=== PATIENT | female | born 1945 | race Caucasian/White ===

== ENCOUNTER → 2021-03-14 13:08 | Outpatient (BNVA) | payer MEDICARE, OTHER, SELFPAY | PROVIDERS: PCP Internal Medicine; Visit Provider Hospitalist | DX: R91.8 Other nonspecific abnormal finding of lung field (principal); J41.0 Simple chronic bronchitis; R19.09 Other intra-abdominal and pelvic swelling, mass and lump; R59.1 Generalized enlarged lymph nodes; F17.200 Nicotine dependence, unspecified, uncomplicated | CPT/HCPCS: 99202; 99212 ==

== ENCOUNTER 2021-03-25 10:58 | Outpatient (REF) | payer MEDICARE, OTHER, SELFPAY ==
--- NOTE | 2021-03-25 15:18 | PFT_ITS ---
Forced vital capacity is slightly decrease. FEV1 moderately decreased. [id number] and MVV are markedly decreased. Post bronchodilator therapy, there is no significant change. Total lung capacity is normal. Residual volume moderately increased. Diffusion capacity is moderately decreased. CONCLUSION: Obstructive pulmonary disorder, severe. No response to bronchodilator therapy is noted. There is evidence of hyperinflation and some degree of air trapping. Clinical correlation recommended. MD AAKASH Alfaro/MODL / [id number]
== END 2021-03-25 10:59 | disposition home or self-care (01) ==
LOC: HO.RESP 10:58
PROVIDERS: PCP Internal Medicine; Visit Provider Hospitalist
DX: J44.9 Chronic obstructive pulmonary disease, unspecified (principal); R91.8 Other nonspecific abnormal finding of lung field
CPT/HCPCS: 94060; 94727; 94729

== ENCOUNTER 2021-03-26 12:46 | Outpatient (REF) | payer MEDICARE, OTHER, SELFPAY ==
--- NOTE | ~2021-03-26 | US_ITS ---
EXAMINATION: ULTRASOUND-GUIDED NEEDLE PLACEMENT CLINICAL INFORMATION: Left inguinal lymph node increased uptake on PET CT scan COMPARISON: Outside PET/CT scan 03/15/2021 TECHNIQUE: Procedure and risks and benefits including bleeding and infection were discussed with the patient and informed consent was obtained. The left groin was prepped and draped in the usual sterile fashion. Skin and soft tissues were anesthetized with 1% lidocaine plain. Using ultrasound guidance and a 22-gauge needle, 3 separate 22-gauge FNA aspirations were obtained. FINDINGS: There is a 2.1 x 0.9 x 1.5 cm left inguinal lymph node. This appears diffusely hypoechoic with loss of normal echogenic fatty hilum. This demonstrates normal hilar flow. US/US guide needle placement IMPRESSION: Ultrasound-guided left inguinal lymph node fine-needle aspiration.
== END 2021-03-26 12:47 | disposition home or self-care (01) ==
LOC: HO.US 12:46
PROVIDERS: Radiology Diagnostic Radiology; PCP Internal Medicine; Visit Provider Hospitalist
DX: Z13.89 Encounter for screening for other disorder (principal)
CPT/HCPCS: 36415; 76942; 88172; 88173; 88184; 88185; 88300; 88305

== ENCOUNTER → 2021-04-17 09:44 | Outpatient (BNVA) | payer MEDICARE, OTHER, SELFPAY | PROVIDERS: PCP Internal Medicine; Visit Provider Hospitalist | DX: J41.0 Simple chronic bronchitis (principal); R19.09 Other intra-abdominal and pelvic swelling, mass and lump; R59.1 Generalized enlarged lymph nodes; F17.200 Nicotine dependence, unspecified, uncomplicated | CPT/HCPCS: 99212 ==

== ENCOUNTER → 2021-06-19 09:54 | Outpatient (BNVA) | payer MEDICARE, OTHER, SELFPAY | PROVIDERS: PCP Internal Medicine; Visit Provider Hospitalist | DX: R91.8 Other nonspecific abnormal finding of lung field (principal); J41.0 Simple chronic bronchitis; R19.09 Other intra-abdominal and pelvic swelling, mass and lump; F17.200 Nicotine dependence, unspecified, uncomplicated | CPT/HCPCS: 99212 ==

== ENCOUNTER → 2021-12-18 09:50 | Outpatient (BNVA) | payer MEDICARE, OTHER, SELFPAY | PROVIDERS: PCP Internal Medicine; Visit Provider Hospitalist | DX: R91.8 Other nonspecific abnormal finding of lung field (principal); J41.0 Simple chronic bronchitis; I35.0 Nonrheumatic aortic (valve) stenosis; F17.210 Nicotine dependence, cigarettes, uncomplicated | CPT/HCPCS: 99212 ==

== ENCOUNTER → 2022-02-19 08:25 | Outpatient (REF) | payer MEDICARE, OTHER, SELFPAY ==
--- NOTE | 2022-02-19 08:28 | CA_ITS ---
Transthoracic Echocardiogram Patient (Last, First, Middle): Kiki Walton E Gender: Female Date of : 1945 Age: 76 Procedure Date: 02/19/2022 Procedure Type: Transthoracic Echocardiogram Location: OP Height: 154.94 cm Weight: 54.43 kg BSA: 1.52 m2 Heart Rate: bpm BP: 116 / 60 mmHg Flexible Nanny: Referring MD: Vinod Ring MD Counter Intelligence Technician: Johnnie Jacobson MD Symptoms: I27.20 - Pulmonary hypertension, unspecified Study Quality: Fair ECG Rhythm: Sinus with extra beats Conclusions: - 1. Normal LV systolic function with impaired relaxation filling pattern 2. Severe aortic stenosis with valve area of 0.72 centimeter sq with mean gradient of 41 mmHg 3. Normal RV systolic pressure 4. No gross pericardial effusion Findings Left Ventricle Normal left ventricular size, thickness, and systolic function. The visually estimated ejection fraction is between 60-65%. Spectral Doppler is indicative of an impaired relaxation filling pattern. E/E prime ratio is between 8 and 15 consistent with indeterminate filling pressures. Right Ventricle Normal right ventricular cavity size and systolic function. Atria The left atrium is mildly dilated. There is no evidence of interatrial shunt. The right atrium is normal in size. Aortic Valve There is moderate calcification of the aortic valve. There is moderate thickening of the aortic valve. There is severe aortic valve stenosis. The peak aortic gradient is 66 mmHg.The mean gradient is 41 mmHg. The aortic valve area is 0.72 cm2. There is no aortic valve regurgitation. Mitral Valve There is mild anterior and posterior mitral leaflet thickening. There is mild mitral annular calcification. There is trace mitral valve regurgitation. There is no mitral valve stenosis. Pulmonic Valve The pulmonic valve is likely normal. Tricuspid Valve Normal tricuspid valve structure. Normal right atrial pressure. There is no evidence of pulmonary hypertension. Great Vessels All visible segments of the aorta are normal in size. The pulmonary artery was not well visualized. Venous The inferior vena cava is normal in size and collapses greater than 50% with inspiration. Pericardium/Pleural There is no evidence of pericardial effusion. Prior Study Comparison No prior study available for comparison. Measurements 2D Linear Measurements IVSd: 0.78 0.6-0.9/0.6-1.0 cm LVIDd: 3.98 3.9-5.3/4.2-5.9 cm LVIDd Index: 2.62 2.4-3.2/2.2-3.1 cm/m2 LVIDs: 2.62 2.0-3.6 cm LVPWd: 0.92 0.7-1.1 cm Ao Root: 2.90 2.1-3.5 cm LA Diam: 4.00 2.7-3.8/3.0-4.0 cm LAIDs Index: 2.63 1.5-2.3 cm/m2 LV Mass: 124.01 67-162/88-224 g LV Mass Index: 81.58 43-95/49-115 g/m2 LVOT Diam: 2.00 3.0+(-)1.3 cm Mitral Valve MV Pk E: 0.78 MV PK A: 1.06 MV Decel Time: 222.00 E/A: 0.70 E'Lateral: 7.51 E'Medial: 6.09 E/E' Med: 12.90 E/E' Lat: 10.40 PHT: 65.00 MVA PHT: 3.38 Decel [place]: 3.53 Aortic Valve AoV Pk Davis: 4.05 AoV Mn Davis: 3.04 AoV VTI: 0.99 AoV Pk Grad: 66.00 Aov Mn Grad: 41.00 CHRISTEN Cont.VTI: 0.72 LVOT LVOT Pk Davis: 0.96 LVOT Mn Davis: 0.68 LVOT VTI: 0.23 LVOT Pk Grad: 4.00 LVOT Mn Grad: 2.00 LVOT Diam: 2.00 LVOT Area: 3.14 Diastolic Function MV Pk E: 0.78 MV Pk A: 1.06 E/A: 0.70 E'Medial: 6.09 E/E' Med: 12.90 E' Laterial: 7.51 E/E' Lat: 10.40 Right Ventricle TAPSE (mm): 27.00 TVS' Davis: 13.00 Tricuspid Valve TR Pk Davis: 2.79 TR Pk Grad: 31.00 RA Press: 3.00 RVSP: 34.00 Great Vessels Aorta Ao Root-2D: 2.90 2.0-3.7 cm Ao Asc: 3.30 2.1-3.4 cm Pulmonary Valve PV Pk Davis: 1.18 Peak PV Grad: 6.00 Updated in Other Vendor System with Status of Final Johnnie Jacobson MD electronically signed on 02/19/2022 3:40:00 PM with status of Final
== END ==
LOC: HO.CARD 08:25
PROVIDERS: PCP Internal Medicine; Visit Provider Hospitalist
DX: I35.0 Nonrheumatic aortic (valve) stenosis (principal)
CPT/HCPCS: 93306

== ENCOUNTER 2022-03-14 09:26 | Outpatient (REF) | payer MEDICARE, OTHER, SELFPAY ==
[2022-03-14 10:16] LABS: Basophils Percent Auto 0.9 % (0-2); Eosinophils Absolute Auto 0.2 X10*3/uL (0.0-0.4); Eosinophils Percent Auto 3.3 % (0-4); Hematocrit 32.1 % (37.0-47.0); Hemoglobin 10.4 g/dl (12.0-16.0); Imm Gran Abs Auto 0.03 X10*3/uL (0.00-0.03); Imm Gran Pct Auto 0.7 % (0.0-0.4); Lymphocytes Absolute Auto 0.9 X10*3/uL (1.2-4.9); Lymphocytes Percent Auto 20.5 % (20-40); MANUAL DIFF FLAG SCAN; Mean Corpuscular HGB Conc 32.4 g/dl (31.0-35.0); Mean Corpuscular Hemoglobin 27.3 pg (27.0-33.0); Mean Corpuscular Volume 84.3 fL (80.0-98.0); Mean Platelet Volume 9.7 fL (9.4-12.3); Monocytes Absolute Auto 1.1 X10*3/uL (0.1-1.2); Monocytes Percent Auto 23.6 % (2-11); Neutrophils Absolute Auto 2.3 x10*3/uL (2.0-8.3); Platelet Count 288 X10*3/uL (160-400); Red Blood Count 3.81 X10*6/uL (4.20-5.50); Red Cell Distribution Width 17.1 % (11.0-16.0); SCAN SMEAR FLAG 1; White Blood Count 4.5 X10*3/uL (4.8-10.8)
[2022-03-14 10:39] LABS: Anion Gap 13 (12-20); Blood Urea Nitrogen 15 mg/dL (9-16); Calcium 8.7 mg/dL (8.4-10.2); Carbon Dioxide 26 mmol/L (22-29); Chloride 98 mmol/L (96-108); Estimated Glomerular Filt Rate > 60; Glucose Random 97 mg/dL (60-115); Potassium 3.7 mmol/L (3.3-5.1); Sodium 133 mmol/L (135-145)
[2022-03-14 10:52] LABS: SLIDE REVIEW VERIFIED
== END 2022-03-14 09:27 | disposition home or self-care (01) ==
LOC: HO.LAB 09:26
PROVIDERS: PCP Internal Medicine; Visit Provider Internal Medicine Cardiovascular Disease
DX: I35.0 Nonrheumatic aortic (valve) stenosis (principal)
CPT/HCPCS: 36415; 80048; 85025; 93005; 99202

== ENCOUNTER 2022-03-27 10:26 | Outpatient (REF) | payer MEDICARE, OTHER, SELFPAY ==
[2022-03-27 11:44] LABS: INTERNATIONAL NORM RATIO 0.9 (0.9-1.1); Prothrombin Time 10.5 SEC (10.0-13.1)
== END 2022-03-27 10:27 | disposition home or self-care (01) ==
LOC: HO.LAB 10:26
PROVIDERS: PCP Internal Medicine; Visit Provider Internal Medicine Cardiovascular Disease
DX: I35.0 Nonrheumatic aortic (valve) stenosis (principal)
CPT/HCPCS: 36415; 85610

== ENCOUNTER → 2022-04-17 14:54 | Outpatient (BNVA) | payer MEDICARE, OTHER, SELFPAY | PROVIDERS: PCP Internal Medicine; Visit Provider Nurse Practitioner Family | DX: I35.0 Nonrheumatic aortic (valve) stenosis (principal); J41.0 Simple chronic bronchitis; I10 Essential (primary) hypertension; Z98.890 Other specified postprocedural states | CPT/HCPCS: 99212 ==

== ENCOUNTER 2022-05-08 12:17 | Outpatient (REF) | payer MEDICARE, OTHER, SELFPAY ==
[2022-05-08 13:30] LABS: D Dimer High Sensitivity 275 NG/ML
== END 2022-05-08 12:18 | disposition home or self-care (01) ==
LOC: HO.LAB 12:17
PROVIDERS: PCP Internal Medicine; Visit Provider Internal Medicine Pulmonary Disease
DX: J41.0 Simple chronic bronchitis (principal); Z79.899 Other long term (current) drug therapy
CPT/HCPCS: 36415; 85379; 99212

== ENCOUNTER 2022-05-26 10:08 | Outpatient (REF) | payer MEDICARE, OTHER, SELFPAY ==
--- NOTE | ~2022-05-26 | CT_ITS ---
EXAMINATION: CT CHEST WITHOUT CONTRAST CLINICAL INFORMATION: Pulmonary nodule COMPARISON: Previous chest CT May [address] February 2021 TECHNIQUE: Multidetector volumetric CT imaging of the chest was done. Axial MIP volume rendering provided. Sagittal and coronal reformatted images were obtained. This CT examination was performed using dose optimization techniques as appropriate, variously including the following: *Automated exposure control *Adjustment of mA and/or kV according to patient size (this includes techniques or standardized protocols for targeted exams where dose is matched to indication/reason for exam; i.e. extremities or head) *Use of iterative reconstruction technique DLP: 88 mGy-cm FINDINGS: LUNGS: There is evidence of emphysema. The previously identified irregular shaped 6 mm right upper lobe nodule appears decreased in size measuring 4 mm axial image 122 series 7. There are innumerable new areas of bronchial wall thickening, increased peribronchial attenuation and denser nodular opacities seen in throughout the lungs. This probably represents airways disease or bronchopneumonia. Neoplastic process cannot be excluded and imaging follow-up is recommended. Largest nodular opacities measure 1 cm in the left upper lobe axial image 275 series 5, 1.4 cm in the left upper lobe axial image 286 series 5. MEDIASTINUM: Small mediastinal lymph nodes. No enlarged lymph nodes seen. CORONARY ARTERY CALCIFICATION: Coronary artery and aortic valve calcification. Normal heart size. No pericardial effusion. PLEURA: There is no pleural effusion. No pleural mass or thickening. AXILLA: No lymphadenopathy. UPPER ABDOMEN: Clips. Large amount of stool in the colon. OSSEOUS STRUCTURES: There are degenerative changes of the spine. CT/CT chest wo IV con IMPRESSION: Emphysema. Interval decrease in the index right upper lobe nodule now measuring 4 mm. Innumerable new areas of bronchial wall thickening, peribronchial increased attenuation and nodular opacities throughout the lungs. This probably represents an infectious or inflammatory process. Neoplastic process cannot be excluded and imaging follow-up following treatment recommended. Coronary artery and aortic valve calcification. Constipation. Fleischner guidelines were followed.
== END 2022-05-26 10:09 | disposition home or self-care (01) ==
LOC: HO.CT 10:08
PROVIDERS: Visit Provider Hospitalist
DX: R91.8 Other nonspecific abnormal finding of lung field (principal)
CPT/HCPCS: 71250

== ENCOUNTER → 2022-07-02 09:38 | Outpatient (BNVA) | payer MEDICARE, OTHER, SELFPAY | PROVIDERS: PCP Internal Medicine; Visit Provider Hospitalist | DX: R91.8 Other nonspecific abnormal finding of lung field (principal); J41.0 Simple chronic bronchitis; I35.0 Nonrheumatic aortic (valve) stenosis | CPT/HCPCS: 99212 ==

== ENCOUNTER → 2022-08-04 10:10 | Outpatient (REF) | payer MEDICARE, OTHER, SELFPAY ==
--- NOTE | 2022-08-04 10:13 | CA_ITS ---
Transthoracic Echocardiogram Patient (Last, First, Middle): Kiki Walton E Gender: Female Date of : 1945 Age: 76 Procedure Date: 08/04/2022 Procedure Type: Transthoracic Echocardiogram Location: OP Height: 154.94 cm Weight: 56.7 kg BSA: 1.55 m2 Heart Rate: 70 bpm BP: 118 / 60 mmHg Waste And Batting Waste Chopper: ALVARO Referring MD: Johnnie Jacobson MD Symptoms: Z95.3 - Presence of xenogenic heart valve Study Quality: Adequate ECG Rhythm: Sinus Conclusions: - The left ventricular systolic function is normal. The calculated ejection fraction is 63% by biplane method. - A bioprosthetic aortic valve is present. The prosthetic aortic valve appears to be functioning normally. Findings Left Ventricle Normal left ventricular cavity size. There is mildly increased left ventricular wall thickness. The left ventricular systolic function is normal. The calculated ejection fraction is 63% by biplane method. There is no evidence of regional wall motion abnormalities. Diastolic function is normal for age. Right Ventricle Normal right ventricular cavity size and systolic function. Atria Both atria are normal in size. Aortic Valve A bioprosthetic aortic valve is present. The prosthetic aortic valve appears to be functioning normally. There is no aortic valve regurgitation. Mitral Valve The mitral valve appears normal. There is mild mitral annular calcification. There is trace mitral valve regurgitation. There is no mitral valve stenosis. Pulmonic Valve The pulmonic valve is likely normal. Tricuspid Valve There is mild tricuspid valve regurgitation. Mild pulmonary hypertension is present. Great Vessels The asc aorta is normal in size. Venous The inferior vena cava is normal in size and collapses greater than 50% with inspiration. Pericardium/Pleural There is no evidence of pericardial effusion. Prior Study Comparison Changes noted compared to prior study dated: 02/19/2022. s/p AVR. Measurements 2D Linear Measurements IVSd: 1.20 0.6-0.9/0.6-1.0 cm LVIDd: 3.51 3.9-5.3/4.2-5.9 cm LVIDd Index: 2.26 2.4-3.2/2.2-3.1 cm/m2 LVIDs: 2.27 2.0-3.6 cm LVPWd: 1.10 0.7-1.1 cm LA Diam: 3.40 2.7-3.8/3.0-4.0 cm LAIDs Index: 2.19 1.5-2.3 cm/m2 LV Mass: 158.99 67-162/88-224 g LV Mass Index: 102.58 43-95/49-115 g/m2 LVOT Diam: 1.90 3.0+(-)1.3 cm 2D Systolic Function EF 4C: 56.70 >55% EF 2C: 68.00 >55% EF BiP: 63.00 >55% Mitral Valve MV Pk E: 1.15 MV PK A: 1.21 MV Decel Time: 222.00 E/A: 1.00 E'Lateral: 10.10 E'Medial: 8.49 E/E' Med: 13.50 E/E' Lat: 11.40 PHT: 65.00 MVA PHT: 3.38 Decel [place]: 5.20 Aortic Valve AoV Pk Davis: 1.44 AoV Mn Davis: 1.02 AoV VTI: 0.34 AoV Pk Grad: 8.00 Aov Mn Grad: 5.00 CHRISTEN Cont.VTI: 1.95 LVOT LVOT Pk Davis: 1.02 LVOT Mn Davis: 0.68 LVOT VTI: 0.24 LVOT Pk Grad: 4.00 LVOT Mn Grad: 2.00 LVOT Diam: 1.90 LVOT Area: 2.84 Diastolic Function MV Pk E: 1.15 MV Pk A: 1.21 E/A: 1.00 E'Medial: 8.49 E/E' Med: 13.50 E' Laterial: 10.10 E/E' Lat: 11.40 Right Ventricle TAPSE (mm): 25.00 TVS' Davis: 12.80 Tricuspid Valve TR Pk Davis: 2.81 TR Pk Grad: 32.00 RA Press: 3.00 RVSP: 35.00 Great Vessels Aorta Sinus of Valsalva: 3.10 2.0-3.5 cm Ao Asc: 2.60 2.1-3.4 cm Pulmonary Valve PV Pk Davis: 1.32 Peak PV Grad: 7.00 Updated in Other Vendor System with Status of Final Dusty Xiong MD electronically signed on 08/05/2022 11:54:07 AM with status of Final
== END ==
LOC: HO.CARD 10:10
PROVIDERS: Referring Provider Internal Medicine Cardiovascular Disease; Visit Provider Nurse Practitioner Acute Care
DX: I35.0 Nonrheumatic aortic (valve) stenosis (principal); R06.09 Other forms of dyspnea; Z95.4 Presence of other heart-valve replacement
CPT/HCPCS: 93306

== ENCOUNTER → 2022-08-27 10:55 | Outpatient (BNVA) | payer MEDICARE, OTHER, SELFPAY | PROVIDERS: PCP Internal Medicine; Visit Provider Internal Medicine Cardiovascular Disease | DX: I10 Essential (primary) hypertension (principal); Z95.2 Presence of prosthetic heart valve; Z79.82 Long term (current) use of aspirin | CPT/HCPCS: 93005; 99212 ==

== ENCOUNTER 2022-11-17 09:34 | Outpatient (REF) | payer MEDICARE, OTHER, SELFPAY ==
--- NOTE | 2022-11-17 11:02 | PFT_ITS ---
FLOWS: 1. FEV1 66% of predicted at 1.15 L. 2. FVC 76% of predicted at 1.78 L. 3. FEV1 to FVC ratio of 0.65. 4. No bronchodilator response. LUNG VOLUMES: 1. Total lung capacity 99% of predicted at 4.30 L. 2. Residual volume 113% of predicted at 2.50 L. 3. Slow vital capacity 87% of predicted at 2.10 L. 4. Expiratory reserve volume 45% of predicted at 0.19 L. 5. Diffusion capacity is moderately decreased. IMPRESSION: Moderate obstructive ventilatory defect with no bronchodilator response. Decreased diffusion capacity suggests emphysema. MD JORGE Brown/MODL / [id number]
== END 2022-11-17 09:35 | disposition home or self-care (01) ==
LOC: HO.LAB 09:34
PROVIDERS: Visit Provider Hospitalist
DX: J41.0 Simple chronic bronchitis (principal)
CPT/HCPCS: 94060; 94727; 94729

== ENCOUNTER 2022-11-26 09:34 | Outpatient (REF) | payer MEDICARE, OTHER, SELFPAY ==
[2022-11-26 10:27] LABS: MANUAL DIFF FLAG NO
[2022-11-26 10:57] LABS: Basophils Absolute Auto 0.1 X10*3/uL (0.0-0.2); Basophils Percent Auto 1.1 % (0-2); Eosinophils Absolute Auto 0.6 X10*3/uL (0.0-0.4); Eosinophils Percent Auto 7.9 % (0-4); Hematocrit 30.8 % (37.0-47.0); Hemoglobin 9.2 g/dl (12.0-16.0); Imm Gran Abs Auto 0.03 X10*3/uL (0.00-0.03); Imm Gran Pct Auto 0.4 % (0.0-0.4); Lymphocytes Absolute Auto 1.2 X10*3/uL (1.2-4.9); Mean Corpuscular HGB Conc 29.9 g/dl (31.0-35.0); Mean Corpuscular Hemoglobin 24.9 pg (27.0-33.0); Mean Corpuscular Volume 83.2 fL (80.0-98.0); Mean Platelet Volume 9.5 fL (9.4-12.3); Monocytes Absolute Auto 0.9 X10*3/uL (0.1-1.2); Monocytes Percent Auto 12.6 % (2-11); Neutrophils Absolute Auto 4.4 x10*3/uL (2.0-8.3); Platelet Count 334 X10*3/uL (160-400); White Blood Count 7.2 X10*3/uL (4.8-10.8)
[2022-11-26 11:59] LABS: Erythrocyte Sedimentation Rate 55 MM/HR (0-20)
[2022-11-26 14:45] LABS: Anion Gap 11 (12-20); Blood Urea Nitrogen 16 mg/dL (9-16); Calcium 8.6 mg/dL (8.4-10.2); Carbon Dioxide 27 mmol/L (22-29); Chloride 102 mmol/L (96-108); Estimated Glomerular Filt Rate 52; Glucose Random 92 mg/dL (60-115); Potassium 4.2 mmol/L (3.3-5.1); Sodium 136 mmol/L (135-145)
[2022-11-26 15:21] LABS: Ferritin 26 ng/mL (10-250); Folate 12.7 ng/mL (> or = 4.0)
[2022-11-27 06:45] LABS: Vitamin B12 471 pg/mL (200-900)
== END 2022-11-26 09:35 | disposition home or self-care (01) ==
LOC: HO.LAB 09:34
PROVIDERS: PCP Internal Medicine; Visit Provider Hospitalist
DX: R91.8 Other nonspecific abnormal finding of lung field (principal); R06.00 Dyspnea, unspecified; D64.9 Anemia, unspecified; J41.0 Simple chronic bronchitis
CPT/HCPCS: 36415; 80048; 82607; 82728; 82746; 85025; 85652; 99212

== ENCOUNTER → 2023-03-03 09:17 | Outpatient (BNVA) | payer MEDICARE, OTHER, SELFPAY | PROVIDERS: PCP Internal Medicine; Visit Provider Internal Medicine Cardiovascular Disease | DX: R42 Dizziness and giddiness (principal); Z95.2 Presence of prosthetic heart valve; I82.409 Acute embolism and thrombosis of unspecified deep veins of unspecified lower extremity; Z79.01 Long term (current) use of anticoagulants | CPT/HCPCS: 99212 ==

== ENCOUNTER 2023-04-14 09:41 | Outpatient (AMB) | payer MEDICARE, OTHER, SELFPAY ==
--- NOTE | 2023-04-14 09:56 | A.OFFVIS_ITS ---
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 Required: No Allergies codeine Allergy (Severe, Verified 04/14/23 10:04) Headache levofloxacin [From Levaquin] Allergy (Severe, Verified 04/14/23 10:04) Headache tramadol [From Ultram] Allergy (Severe, Verified 04/14/23 10:04) Rash Medication List - Last Reconciled 04/14/23 by RENETTA Benjamin albuterol sulfate 90 mcg/actuation 2 puffs inhalation 6XD PRN 30 days apixaban (Eliquis) 5 mg PO BID atorvastatin 20 mg PO DAILY diltiazem HCl ER 180 mg PO fluticasone propion-salmeterol 100-50 mcg/dose 1 inh inhalation BID gabapentin 200 mg PO BID pantoprazole 20 mg PO DAILY tiotropium bromide 2.5 mcg/actuation (Spiriva Respimat) 2 inhalations inhalation DAILY valsartan 80 mg PO DAILY venlafaxine ER 150 mg PO DAILY vit C,S-Kg-ttkfn-lutein-zeaxan 250-90-40-1 mg (PreserVision AREDS-2) 1 tab PO BID HPI 4 wk f/up NS HPI Details Kiki is a 77 yo female with PMH of HTN, smoking, s/p Bioprosthetic AVR 07/29, Fall 02/01/23 with rib fx and pneumothorax, right distal radial fracture, Left lower extremity DVT 02/10/23 and was started on Eliquis. On last visit in February was noted to have labile BPs and was instructed on staggering meds, increasing fluids and using much caution with position changes. Today she reports that she has been doing generally well since her last visit. She has not had any recurrent falls. No presyncope or syncope. She has had at least 2 episodes of feeling lightheadedness and her documented blood pressures with systolic in the 90s. When this occurs she increases her fluid intake. Home blood pressures have been monitored and they systolic ranges from 90s up to a high of 160. For the most part she has been feeling good. No chest discomfort at rest or with activity. No shortness of breath, palpitations, PND, orthopnea or edema. Still has a brace on her right wrist. Will begin occupational therapy soon. Wearing compression stockings. Drinking about 38 oz of fluid a day. Using caution now with sitting to standing. Taking diltiazem in the morning and valsartan in the evening. Still on Eliquis. Has a repeat lower extremity ultrasound due today. [facility] Medical History Anemia Aortic stenosis COPD (chronic obstructive pulmonary disease) Lymphadenopathy Pulmonary nodules Tobacco dependence Surgical History H/O total knee replacement History of partial gastrectomy S/P cardiac catheterization Status post transcatheter aortic valve replacement Family History Other Adopted Social History Alcohol intake: former Year quit: 1979 Patient Tobacco Use Status: Former Tobacco user Quit Date: march 2022 Tobacco use type: Cigarette Cigarettes Per Day: 8 Years Smoked: 10 +/- Review of Systems ENT Reports dizziness Card Denies chest pain, Denies chest pain at rest, Denies chest pain with activity, Denies rapid heart rate, Denies pedal edema, Denies edema, Denies leg edema, Denies lightheadedness, Denies palpitations, Denies dyspnea, Denies dyspnea on exertion and Denies orthopnea Resp Denies cough, Denies dyspnea and Denies dyspnea on exertion GI Denies hematochezia and Denies change in stool character Musc Denies abnormal gait, Reports limited range of motion, Reports muscle cramps, Denies muscle weakness, Denies numbness, Denies radiating pain into limb, Denies stiffness and Denies tingling Neuro Denies abnormal gait, Reports dizziness, Denies numbness and Denies tingling Endo Denies palpitations Physical Exam Const General: cooperative, healthy appearing, comfortable and no acute distress Orientation/consciousness: patient oriented x3 Neck Neck: Yes normal visual inspection Resp Effort & Inspection: normal respiratory effort Auscultation: clear to auscultation bilaterally, no crackles, no rales, no rhonchi and no wheezes Cardio Jugular venous distension: no JVD Rate: regular rate Rhythm: regular rhythm Heart sounds: S1 normal heart sound present, S2 normal heart sound present, no murmurs and no rubs Neuro General: patient oriented x3 Extrem General: Yes normal to inspection Psych Appearance: grossly normal Mental Status: mental status grossly normal Speech and movement: Normal speech and movement present Assessment & Plan Assessment & Plan (1) Lightheadedness: Code(s): R42 - Dizziness and giddiness Plan: Fall with injury in January 2023. Sustained rib wrist fracture and for rib fractures with pneumothorax. Spent 9 days at [facility]. Unclear reason for fall. She does have noted labile blood pressure. Since that time she has increased her fluid intake currently up to 38 oz in a day. She has been using caution when going from sitting to standing. She is wearing compression stockings. To episodes of lightheadedness in the last 2 months with documented blood pressure in the 90 systolic. On last visit she states her valsartan dose was reduced from 80 mg daily down to 40 mg daily. She staggers her meds, diltiazem is in the a.m. and valsartan is in the p.m.. She is not orthostatic on examination today. Blood pressure by me sitting 128/62, standing 132/64. Instructed to continue current management. Inform she can increase her fluids by an additional 8 oz daily. She has no clinical signs of heart failure or fluid retention on examination. Periodic home blood pressures, especially if feeling lightheaded. Cardiology follow-up in 3 months, sooner if needed. (2) Status post transcatheter aortic valve replacement: Comment: 26 mm Evolut bioprosthetic aortic valve replacement, July 2022 Code(s): Z95.2 - Presence of prosthetic heart valve Plan: History of severe aortic stenosis. Underwent trans catheter aortic valve replacement 07/2022. Last echo 08/04/2022 showing EF 63%, bioprosthetic AVR functioning normally. Has been doing well in this regard over the last 9 months. Will plan for repeat echocardiogram in July, 1 year from last. Cardiology follow-up when echo results are available. SBE prophylaxis reviewed. When she is instructed to stop Eliquis by her PCP she has been informed to restart daily aspirin. Continue atorvastatin 80 mg daily.. (3) Hypertension: Code(s): I10 - Essential (primary) hypertension Plan: As above (4) S/P cardiac catheterization: Comment: 04/03/2022, normal coronary arteries, normal PA pressures. Code(s): Z98.890 - Other specified postprocedural states Orders: Orders CA echo transthoracic complete 3 Months Z95.2 - Presence of prosthetic heart valve Medications: New valsartan 40 mg PO DAILY 90 days 90 tabs 1RF Quality Reporting (2019) Adult ([facility] 138/10/29/68) Smoking risk assessment performed?: Yes Patient Tobacco Use Status: Former Tobacco user Coding Level of Care Code Est Pt Level 4 (25516) Diagnoses Lightheadedness R42 Status post transcatheter aortic valve replacement Z95.2 Hypertension I10 S/P cardiac catheterization Z98.890 Time Spent (min) 28 Comment Chart review, documentation, interview, assessment
[2023-04-14 09:57] VITALS: BP 130/60; PULSE 71; BMI 23.7
== END 2023-04-14 10:36 | disposition home or self-care (01) ==
PROVIDERS: PCP Internal Medicine; Referring Provider Internal Medicine; Visit Provider Nurse Practitioner Family
DX: R42 Dizziness and giddiness (principal); Z95.2 Presence of prosthetic heart valve; I10 Essential (primary) hypertension; Z98.890 Other specified postprocedural states
CPT/HCPCS: 99214

== ENCOUNTER → 2023-04-14 09:41 | Outpatient (BNVA) | payer MEDICARE, OTHER, SELFPAY | PROVIDERS: PCP Internal Medicine; Referring Provider Internal Medicine; Visit Provider Nurse Practitioner Family | DX: R42 Dizziness and giddiness (principal); I10 Essential (primary) hypertension; Z95.2 Presence of prosthetic heart valve; Z98.890 Other specified postprocedural states | CPT/HCPCS: 99212 ==

== ENCOUNTER 2023-05-12 08:12 | Outpatient (REF) | payer MEDICARE, OTHER, SELFPAY ==
--- NOTE | ~2023-05-12 | CT_ITS ---
EXAMINATION: CT CHEST WITHOUT CONTRAST CLINICAL INFORMATION: Follow-up pulmonary nodules. History of squamous cell cancer of the skin. COMPARISON: Previous chest CT scans most recent May 2022 PET/CT scan February 2021 TECHNIQUE: Multidetector volumetric CT imaging of the chest was done. Axial MIP volume rendering provided. Sagittal and coronal reformatted images were obtained. This CT examination was performed using dose optimization techniques as appropriate, variously including the following: *Automated exposure control *Adjustment of mA and/or kV according to patient size (this includes techniques or standardized protocols for targeted exams where dose is matched to indication/reason for exam; i.e. 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 There is a 3 mm peripheral left upper lobe nodule axial 160 series 5 that is stable. There is evidence of emphysema. There is biapical pleural scarring. This appears increased from previous exams. There is mixed cystic and reticular change at both lung apices just inferior to the pleural and parenchymal scarring, for example on the left measuring 1.4 cm axial image 53 series 5 and on the right measuring 1.3 cm axial image 52 series 5. Attention on follow-up recommended. There are scattered areas of increased peribronchial attenuation attenuation and increased interstitial markings in both upper lobes. There are scattered areas of mild bronchiectasis, bronchial wall thickening and atelectasis at the lung bases. MEDIASTINUM: New aortic valve stent graft. Normal heart size. No pericardial effusion. Small mediastinal lymph nodes. CORONARY ARTERY CALCIFICATION: Mild PLEURA: There is no pleural effusion. No pleural mass or thickening. AXILLA: No lymphadenopathy. UPPER ABDOMEN: Postsurgical changes to the stomach. OSSEOUS STRUCTURES: Degenerative changes of the spine. Healing right posterior lateral rib 7 through 10th fractures, new in the interval 2021 CT/CT chest wo IV con IMPRESSION: Previously indexed left upper lobe nodule no longer seen. Small 3 mm peripheral left upper lobe nodule stable. Interval increase in biapical pleural and parenchymal scarring. Increasing mixed cystic and reticular area just inferior to this at the lung apices bilaterally. Attention on follow-up recommended. Scattered areas of mild bronchiectasis bronchial wall thickening or increased peribronchial attenuation probably representing airways disease. Multiple healing right posterior lateral rib fractures. Fleischner guidelines were followed.
== END 2023-05-12 08:13 | disposition home or self-care (01) ==
LOC: HO.CT 08:12
PROVIDERS: PCP Internal Medicine; Visit Provider Hospitalist
DX: R91.8 Other nonspecific abnormal finding of lung field (principal)
CPT/HCPCS: 71250

== ENCOUNTER 2023-05-27 09:57 | Outpatient (AMB) | payer MEDICARE, OTHER, SELFPAY ==
--- NOTE | 2023-05-27 10:06 | MHC.OFFVIS ---
Intake Vital Signs 05/27/23 10:07 Height 5 ft 1 in Weight 126 lb 1.671 oz BMI 23.8 BP 126/70 Blood Pressure Location Rt brachial Position Sitting Pulse 75 Pulse Source Pulse Oximeter Pulse Oximetry (%) 97 Oxygen Delivery Method Room Air Intake Visit Reasons: Pulmonary Nodule Neonatal Pediatric Nurse Required: No Allergies codeine Allergy (Severe, Verified 05/27/23 10:11) Headache levofloxacin [From Levaquin] Allergy (Severe, Verified 05/27/23 10:11) Headache tramadol [From Ultram] Allergy (Severe, Verified 05/27/23 10:11) Rash HPI HPI Comments History of Present Illness Details The patient is a 77-year-old woman with a known history of tobacco dependency, squamous cell skin cancer s/p resection several months ago and COPD. Apparently she has been dealing with thyroid disease and underwent a CT scan of the neck which demonstrated a right upper lobe pulmonary nodule. Therefore, she underwent a dedicated CT scan of the chest documented the findings. Ultimately she underwent a PET scan demonstrating that the right upper lobe nodular density had FDG of 1.4. But in addition to that she was found to have a left axillary lymph node with an FDG activity of 2.2, I right lower low nodular density within FDG of 1.5. More concerning was a left inguinal density with a FDG of 4.8. On further questioning she states that she has some weight loss in addition to night sweats and decreased appetite. The patient also was diagnosed with squamous cell carcinoma her scan status post removal with negative borders per patient's report. 04/17/2021 the patient is here for pulmonary follow-up visit. Overall the patient has been doing well. She still continues to be nervous about undergoing different evaluations. In the meantime we did discuss her CT-guided biopsy of the left enlarged inguinal lymph node that had as high as FDG activity. It demonstrated moderate amount of central are tissue consistent with lymph node. No evidence of malignancy seen. She was also evaluated by ENT with laryngoscopy and did not see any significant abnormalities on the laryngoscopy which is reassuring. The patient also had mild FDG activity in some of the pulmonary nodules and she also had a slight area of consolidation. She was treated with antibiotics. Explained to the patient that smoking by itself can resulting inflammation of the lungs. Will plan to repeat the CT scan of the chest in the coming weeks. In the meantime I did strongly encourage the patient to quit smoking prior to that study in order to see potential improvements if there is inflammation from the smoking. The patient continues to use her respiratory therapy without any issues. At this point will continue her therapies and she has completed the antibiotics. Will plan to follow-up after her next CT scan which will be the end of May. 06/19/2021 the patient is here for a pulmonary follow-up visit. Overall she is doing okay. She does continue to have a cough which is productive in nature. Mild in severity. She continues to smoke cigarettes. She is trying to cut down. I did recommend that she quit altogether because she continued to have worsening inflammation of the airways. We did review her recent CT scan of the chest demonstrating pulmonary nodules largest being about 6 mm but he regular and concerning specially with some FDG activity on PET scan. no significant lymphadenopathy appreciated on the CT scan of the chest. This is also reassuring. However, she does have significant emphysema and also evidence of chronic bronchitis specially at the bases. Explained to her these changes although related to smoking. 1 she with at least a bronchitis component should improve in her cough should also improved. Based on her radiological findings and persistent symptoms will follow-up with a CT scan in 6 months time. 12/18/2021 the patient is here for pulmonary follow-up visit. Overall she is doing well. She has noticed increasing dyspnea on exertion. Specially going up a flight of stairs or going up an incline. Usually needs to stop the end to rest. She does use her inhalers regularly. When she misses a dose she definitely Becomes more symptomatic. we did review we did review her CT scan of the chest from back May 2021. Demonstrating 6 mm pulmonary nodule which was irregular in size shape. The patient is scheduled to have a repeat CT scan sometime in the fall 2021. in the meantime the patient does have a significant murmur. She has not had an echo more than a year. Based on the fact the patient is more symptomatic it would also be important to assess the severity of the aortic stenosis in case her respiratory decompensation is due from the valvular disease. 07/02/2022 the patient is here for a pulmonary follow-up visit. Since we last spoke she has been followed closely by Cardiology. The patient does have severe aortic stenosis. She did undergo a cardiac catheterization both left and right. No evidence of any pulmonary hypertension which is reassuring. Currently she is scheduled to undergo transcutaneous aortic valve replacement at [facility]. In the meantime in during the month of May the patient developed worsening shortness of breath at rest. Moderate severity. She was evaluated here in our office. Currently she is feeling better. Also during that time where she was having difficulty breathing she did undergo a CT scan of the chest demonstrating bilateral patchy airspace disease and ground-glass opacities suggesting some degree of inflammation or lower respiratory infection. The patient is clinically doing better. It is likely that these areas have now resolved. Her exam is completely reassuring. Once the patient recovers from her surgery will plan to follow-up with Pulmonary PFTs. We discussed repeating the CT scan sometime after that. 11/26/2022 the patient is here for a pulmonary follow-up visit. Overall she is doing better. She is status post her aortic valve replacement and she did very well. She had a very brief hospitalization. She is now participating in cardio pulmonary rehabilitation. She is using her inhalers. She does complaint of dyspnea on exertion [id number] severity also feeling dizzy. We did review her blood work while she was at [facility] back in August and hemoglobin have been 9 and then 9.3. Hemoglobin prior to that it was 10.4. Therefore, explained to the patient that the anemia can result in increasing dyspnea symptoms. Specially with her underlying cardiopulmonary disease. She also underwent pulmonary function studies demonstrating moderate degree of COPD. But has severe diffusion impairment. Explained to her that the fusion impairment may have to do with anemia. Therefore she is going to go for blood work today. I will make sure to send over the blood work to her primary care doctor once available. Will plan to follow-up in 6 months or sooner if she develops any worsening symptoms. In the meantime she is going to continue with current respiratory therapy. 05/27/2023 the patient is here for pulmonary follow-up visit. The patient overall is doing fairly well this time. Since we last spoke the patient had a fall in her backyard and she was taken to [facility] where she was found to have for rib fractures on the right which were displaced complicated by pneumothorax. Does not appear that she had a hemothorax. She had a chest tube placed and she was admitted to the hospital. Subsequently discharged. She is feeling better overall. Did have significant pain in that area. Denies any pleuritic discomfort. She continues her inhalers which appeared to be effective. She rarely uses her rescue inhaler although she ran out and she does need to that get that renewed. In addition to that she is following closely with primary care doctor. Again it was noted that she has significant iron deficiency anemia as noted before. She needs to make sure that that is corrected specially with her underlying respiratory disease back in resulting worsening shortness of breath. The patient did have a CT scan of the chest that we personally reviewed. It is reassuring that the left upper lobe nodular density that she had that was concerning has resolved. A lot of the inflammatory changes she had also have improved. She does have some interstitial changes though and she does have some pleural based disease and some stable pulmonary nodules. In part could be secondary to her fall and injury but otherwise reassuring. On these for now we do not have to have serial CT scans. We can discuss additional CT scans during her next visit in 6 months. [facility] Medical History Anemia Aortic stenosis COPD (chronic obstructive pulmonary disease) Lymphadenopathy Pulmonary nodules Tobacco dependence Surgical History H/O total knee replacement History of partial gastrectomy S/P cardiac catheterization Status post transcatheter aortic valve replacement Family History Other Adopted Social History Alcohol intake: former Year quit: 1979 Patient Tobacco Use Status: Former Tobacco user Quit Date: march 2022 Tobacco use type: Cigarette Cigarettes Per Day: 8 Years Smoked: 10 +/- Review of Systems Const Reports fatigue and Denies night sweats Eyes Reports change in vision ENT Denies change in voice, Reports dizziness, Denies lip swelling, Denies mouth pain, Reports nasal congestion, Reports nasal discharge and Denies tongue swelling Card Denies chest pain and Reports dyspnea on exertion Resp Denies chest congestion, Reports cough, Denies hemoptysis, Denies pain with cough and Reports dyspnea on exertion GI Denies abdominal pain Musc Reports as per HPI and Reports myalgias Neuro Denies Neuro-related abnormal movements and Reports dizziness Psych Denies no additional complaints Endo Reports fatigue Luis Alberto/Lymph Denies easy bleeding and Denies lymphadenopathy Aller/Immun Denies lip swelling and Denies tongue swelling Physical Exam Vital Signs: Last Vital Signs Pulse 75 05/27/23 10:07 BP 126/70 05/27/23 10:07 Pulse Ox 97 05/27/23 10:07 Oxygen Delivery Method Room Air 05/27/23 10:07 BMI result Body Mass Index 23.8 Const General: alert Neck Neck: Yes normal visual inspection, Yes full ROM and Yes no lymphadenopathy Chest Chest palpation & inspection: normal inspection of the chest Resp Auscultation: diminished lung sounds Cardio Rate: regular rate Rhythm: regular rhythm Heart sounds: S1 normal heart sound present, S2 normal heart sound present and Murmur heart sound present GI Palpation (GI): Soft to palpation and nontender Auscultation: normal bowel sounds Skin General skin exam: rashes and/or lesions noted Assessment & Plan Assessment & Plan (1) Pulmonary nodules: Code(s): R91.8 - Other nonspecific abnormal finding of lung field (2) COPD (chronic obstructive pulmonary disease): Code(s): J44.9 - Chronic obstructive pulmonary disease, unspecified Qualifiers: COPD type: chronic bronchitis Chronic bronchitis type: simple Qualified Code(s): J41.0 - Simple chronic bronchitis (3) Anemia: Comment: 10.4->9.0->9.3 (08/28) Code(s): D64.9 - Anemia, unspecified Qualifiers: Anemia type: iron deficiency Iron deficiency anemia type: unspecified iron deficiency Qualified Code(s): D50.9 - Iron deficiency anemia, unspecified (4) Dyspnea: Code(s): R06.00 - Dyspnea, unspecified Qualifiers: Dyspnea type: dyspnea on exertion Qualified Code(s): R06.09 - Other forms of dyspnea Plan Continue Advair and Spiriva ANASTASIYA as needed CT chest in 12 months Iron deficiancy anemia F/U 6 months Orders: Orders CT chest wo IV con 364 Days R91.8 - Other nonspecific abnormal finding of lung field Medications: Changed From albuterol sulfate 90 mcg/actuation 2 puffs inhalation 6XD 30 days PRN 1 ea 3RF shortness of breath or wheezing J41.0 - Simple chronic bronchitis To albuterol sulfate 90 mcg/actuation 2 puffs inhalation Q6H PRN 3 ea 3RF shortness of breath or wheezing 90 days J41.0 - Simple chronic bronchitis Quality Reporting (2019) Adult ([facility] 138//69) Smoking risk assessment performed?: Yes Patient Tobacco Use Status: Former Tobacco user Coding Level of Care Code Est Pt Level 4 (06559) Diagnoses Pulmonary nodules R91.8 Simple chronic bronchitis J41.0 COPD type: chronic bronchitis Chronic bronchitis type: simple Iron deficiency anemia, unspecified iron deficiency anemia type D50.9 Anemia type: iron deficiency Iron deficiency anemia type: unspecified iron deficiency Dyspnea on exertion R06.09 Dyspnea type: dyspnea on exertion Time Spent (min) 17
[2023-05-27 10:07] VITALS: BP 126/70; PULSE 75; O2SAT 97; BMI 23.8
== END 2023-05-27 10:34 | disposition home or self-care (01) ==
PROVIDERS: PCP Internal Medicine; Visit Provider Hospitalist
DX: R91.8 Other nonspecific abnormal finding of lung field (principal); J41.0 Simple chronic bronchitis; D50.9 Iron deficiency anemia, unspecified; R06.09 Other forms of dyspnea
CPT/HCPCS: 99214

== ENCOUNTER → 2023-05-27 09:57 | Outpatient (BNVA) | payer MEDICARE, OTHER, SELFPAY | PROVIDERS: Visit Provider Hospitalist | DX: J41.0 Simple chronic bronchitis (principal); R91.8 Other nonspecific abnormal finding of lung field; D50.9 Iron deficiency anemia, unspecified; R06.09 Other forms of dyspnea | CPT/HCPCS: 99212 ==

== ENCOUNTER → 2023-07-13 09:07 | Outpatient (REF) | payer MEDICARE, OTHER, SELFPAY ==
--- NOTE | 2023-07-13 09:12 | CA_ITS ---
Transthoracic Echocardiogram Patient (Last, First, Middle): Kiki Walton E Gender: Female Date of : 1945 Age: 77 Procedure Date: 07/13/2023 Procedure Type: Transthoracic Echocardiogram Location: OP Height: 154.94 cm Weight: 53.98 kg BSA: 1.52 m2 Heart Rate: bpm BP: 152 / 65 mmHg Visual Coordinator: MIGUEL A Referring MD: Analia Unger PHOTO MACHINE OPERATOR-C Full Stack Python Developer: Johnnie Jacobson MD Symptoms: Z95.2 - Presence of prosthetic heart valve Study Quality: Adequate ECG Rhythm: Sinus Conclusions: - 1. Normal LV ejection fraction of 60 65% with impaired relaxation filling pattern 2. Mildly dilated left atrium 3. Normally function bioprosthetic aortic valve with mean gradient of 8 mmHg 4. Mildly elevated right ocular systolic pressure 5. No gross pericardial effusion Findings Left Ventricle Normal left ventricular size, thickness, and systolic function. The visually estimated ejection fraction is between 60-65%. Spectral Doppler is indicative of an impaired relaxation filling pattern. E/E prime ratio is between 8 and 15 consistent with indeterminate filling pressures. Peak GLS is measured at -20.5%, within normal limits. Right Ventricle Normal right ventricular cavity size and systolic function. Atria The left atrium is mildly dilated. There is lipomatous hypertrophy of the interatrial septum. Interatrial shunt cannot be excluded. The right atrium is normal in size. Aortic Valve A bioprosthetic aortic valve is present. The prosthetic aortic valve appears to be functioning normally. The mean gradient is 8 mmHg. There is no aortic valve regurgitation. the bioprosthetic valve is well seated without abnormal rocking motion Mitral Valve There is mild anterior and moderate posterior mitral leaflet thickening. There is moderate mitral annular calcification. There is mild mitral valve regurgitation. There is no mitral valve stenosis. Pulmonic Valve The pulmonic valve is likely normal. There is trace pulmonic valve regurgitation. Tricuspid Valve Normal tricuspid valve structure. There is mild tricuspid valve regurgitation. The right ventricular systolic pressure is 42 mmHg. Normal right atrial pressure. Mild pulmonary hypertension is present. Great Vessels All visible segments of the aorta are normal in size. The pulmonary artery was not well visualized. Venous The inferior vena cava is normal in size and collapses greater than 50% with inspiration. Pericardium/Pleural There is no evidence of pericardial effusion. Prior Study Comparison Changes noted compared to prior study dated: 08/04/2022. mildly elevated right ventricular systolic pressure Measurements 2D Linear Measurements IVSd: 1.08 0.6-0.9/0.6-1.0 cm LVIDd: 4.00 3.9-5.3/4.2-5.9 cm LVIDd Index: 2.63 2.4-3.2/2.2-3.1 cm/m2 LVIDs: 2.52 2.0-3.6 cm LVPWd: 0.87 0.7-1.1 cm LA Diam: 3.10 2.7-3.8/3.0-4.0 cm LAIDs Index: 2.04 1.5-2.3 cm/m2 LV Mass: 152.18 67-162/88-224 g LV Mass Index: 100.12 43-95/49-115 g/m2 LVOT Diam: 1.90 3.0+(-)1.3 cm 2D Systolic Function EF 4C: 59.70 >55% EF 2C: 70.40 >55% EF BiP: 66.20 >55% Mitral Valve MV Pk E: 0.97 MV PK A: 1.08 MV Decel Time: 206.00 E/A: 0.90 E'Lateral: 7.62 E'Medial: 7.29 E/E' Med: 13.30 E/E' Lat: 12.70 PHT: 60.00 MVA PHT: 3.67 Decel [place]: 4.71 Aortic Valve AoV Pk Davis: 2.07 AoV Mn Davis: 1.31 AoV VTI: 0.45 AoV Pk Grad: 17.00 Aov Mn Grad: 8.00 CHRISTEN Cont.VTI: 1.64 LVOT LVOT Pk Davis: 1.11 LVOT Mn Davis: 0.78 LVOT VTI: 0.26 LVOT Pk Grad: 5.00 LVOT Mn Grad: 3.00 LVOT Diam: 1.90 LVOT Area: 2.84 Diastolic Function MV Pk E: 0.97 MV Pk A: 1.08 E/A: 0.90 E'Medial: 7.29 E/E' Med: 13.30 E' Laterial: 7.62 E/E' Lat: 12.70 Right Ventricle TAPSE (mm): 22.90 TVS' Davis: 12.60 Tricuspid Valve TR Pk Davis: 3.14 TR Pk Grad: 39.00 RA Press: 3.00 RVSP: 42.00 Great Vessels Aorta Ao Asc: 2.50 2.1-3.4 cm Updated in Other Vendor System with Status of Final Johnnie Jacobson MD electronically signed on 07/13/2023 12:24:13 PM with status of Final
== END ==
LOC: HO.CARD 09:07
PROVIDERS: PCP Internal Medicine; Referring Provider Internal Medicine Cardiovascular Disease; Visit Provider Nurse Practitioner Family
DX: Z95.2 Presence of prosthetic heart valve (principal)
CPT/HCPCS: 93306; 93356

== ENCOUNTER → 2023-07-13 09:12 | Outpatient (BNV) | payer MEDICARE, OTHER, SELFPAY | PROVIDERS: PCP Internal Medicine; Referring Provider Internal Medicine Cardiovascular Disease; Visit Provider Internal Medicine Cardiovascular Disease | DX: I34.0 Nonrheumatic mitral (valve) insufficiency (principal); I36.1 Nonrheumatic tricuspid (valve) insufficiency | CPT/HCPCS: 93306 ==

== ENCOUNTER 2023-07-21 08:50 | Outpatient (AMB) | payer MEDICARE, OTHER, SELFPAY ==
[2023-07-21 08:52] VITALS: BP 120/80; PULSE 75; BMI 22.1
--- NOTE | 2023-07-21 08:52 | A.OFFVIS_ITS ---
Intake Vital Signs 07/21/23 08:52 Height 5 ft 1 in Weight 116 lb 13.52 oz BMI 22.1 BP 120/80 Blood Pressure Location Lt brachial Position Sitting Pulse 75 Intake Visit Reasons: 3 month follow up Intake Note: 3 month follow-up with ekg feeling good Manager Administrative Required: No Allergies codeine Allergy (Severe, Verified 05/27/23 10:11) Headache levofloxacin [From Levaquin] Allergy (Severe, Verified 05/27/23 10:11) Headache tramadol [From Ultram] Allergy (Severe, Verified 05/27/23 10:11) Rash Medication List - Last Reconciled 07/21/23 by Johnnie Jacobson MD albuterol sulfate 90 mcg/actuation 2 puffs inhalation Q6H PRN 90 days apixaban (Eliquis) 5 mg PO BID atorvastatin 20 mg PO DAILY diltiazem HCl ER 180 mg PO ferrous sulfate 325 mg PO DAILY fluticasone propion-salmeterol 100-50 mcg/dose 1 inh inhalation BID gabapentin mg PO pantoprazole 20 mg PO DAILY tiotropium bromide 2.5 mcg/actuation (Spiriva Respimat) 2 inhalations inhalation DAILY valsartan 40 mg PO DAILY 90 days venlafaxine ER 150 mg PO DAILY vit C,L-Zd-orskn-lutein-zeaxan 250-90-40-1 mg (PreserVision AREDS-2) 1 tab PO BID HPI HPI Comments History of Present Illness Details Kiki comes for follow-up. Patient has not had any single episode of lightheadedness. Does not measure blood pressure usually. Unfortunately and smokes intermittently. Recent echocardiogram shows normally function bioprosthetic aortic valve. She is currently on Eliquis therapy for DVT. Unsure about the duration of it. She is noted to be anemic being followed closely. No orthopnea, PND, leg edema. No prolonged palpitations irregular heartbeat. [facility] Medical History (Updated 07/21/23 @ 09:11 by Johnnie Jacobson MD) Anemia Aortic stenosis Tobacco dependence Lymphadenopathy Pulmonary nodules COPD (chronic obstructive pulmonary disease) Surgical History (Updated 07/21/23 @ 09:11 by Johnnie Jacobson MD) S/P cardiac catheterization Status post transcatheter aortic valve replacement History of partial gastrectomy H/O total knee replacement Family History Other Adopted Social History Alcohol intake: former Year quit: 1979 Patient Tobacco Use Status: Former Tobacco user Quit Date: march 2022 Tobacco use type: Cigarette Cigarettes Per Day: 8 Years Smoked: 10 +/- Review of Systems Const Denies chills, Denies fatigue, Denies fever(s), Denies frequent falls, Denies weakness, Denies weight gain and Denies weight loss ENT Denies dizziness Card Denies chest pain, Denies leg edema, Denies lightheadedness, Denies palpitations, Denies dyspnea, Denies dyspnea on exertion, Denies orthopnea and Denies other (loss of consciousness) Resp Denies cough, Denies dyspnea and Denies dyspnea on exertion GI Denies hematochezia and Denies change in stool character Musc Denies abnormal gait, Denies muscle weakness, Denies numbness, Denies radiating pain into limb and Denies tingling Neuro Denies abnormal gait, Denies dizziness, Denies frequent falls, Denies numbness, Denies tingling and Denies weakness Endo Denies fatigue and Denies palpitations Physical Exam Vital Signs: Last Vital Signs Pulse 75 07/21/23 08:52 BP 120/80 07/21/23 08:52 BMI result Body Mass Index 22.1 Const General: cooperative, healthy appearing and comfortable Nutritional Appearance: other (Frail elderly woman) Limitations: wheelchair Neck Neck: Yes normal visual inspection and Yes no JVD Resp Effort & Inspection: normal respiratory effort Auscultation: clear to auscultation bilaterally, no crackles, no rales, no rhonchi, no wheezes and diminished lung sounds Cardio Jugular venous distension: no JVD Rate: regular rate Rhythm: regular rhythm Heart sounds: S1 normal heart sound present, S2 normal heart sound present, no click, no gallops and Murmur heart sound present systolic early Peripheral pulses: Peripheral pulses 2+ throughout Skin General skin exam: no rashes or lesions noted and ecchymosis Extrem Other: Right radial catheterization site with easily palpable radial pulse, right hand assessment normal General: Yes normal to inspection and No no pedal edema Psych Appearance: grossly normal Mental Status: mental status grossly normal Speech and movement: Normal speech and movement present Office Procedures EKG Details: EKG shows normal sinus rhythm normal EKG at 75 beats per minute [id number], Complete Assessment & Plan Assessment & Plan (1) Status post transcatheter aortic valve replacement: Comment: 26 mm Evolut bioprosthetic aortic valve replacement, July 2022 Code(s): Z95.2 - Presence of prosthetic heart valve Plan: Status post transcatheter aortic valve replacement which is working well. Follow-up echocardiogram looks good. Currently on Eliquis therapy but once this is discontinued should go on aspirin therapy for neural protection. SBE prophylaxis as per ACC/[place] guidelines. Continue risk factor modification. Smoking cessation was advised. Follow-up echocardiogram in 1 year's time. (2) Labile blood pressure: Code(s): R09.89 - Other specified symptoms and signs involving the circulatory and respiratory systems Plan: Labile blood pressure most likely due to calcified diffuse vascular disease. Smoking cessation is advised. Staggering of her medications advised. Orthostatic precautions were discussed. Advise increase fluid intake. Advised to monitor blood pressure at home and generally target systolic blood pressure less than 140 if possible. Statin therapy to target goal LDL less than 100 mg/dL. Will follow up in the clinic in 1 year's time, sooner p.r.n.. Thank you for allowing me to partake in her care Quality Reporting (2019) Adult ([facility] 138/10/29/68) Smoking risk assessment performed?: Yes Patient Tobacco Use Status: Former Tobacco user Coding Level of Care Code Est Pt Level 4 (78549) Diagnoses Status post transcatheter aortic valve replacement Z95.2 Labile blood pressure R09.89 CPT Codes EKG - CPT: 40924-[id number], Complete ([id number])
== END 2023-07-21 09:12 | disposition home or self-care (01) ==
PROVIDERS: PCP Internal Medicine; Visit Provider Internal Medicine Cardiovascular Disease
DX: Z95.2 Presence of prosthetic heart valve (principal); R09.89 Other specified symptoms and signs involving the circulatory and respiratory systems
CPT/HCPCS: 93010; 99214

== ENCOUNTER → 2023-07-21 08:50 | Outpatient (BNVA) | payer MEDICARE, OTHER, SELFPAY | PROVIDERS: PCP Internal Medicine; Visit Provider Internal Medicine Cardiovascular Disease | DX: R09.89 Other specified symptoms and signs involving the circulatory and respiratory systems (principal); Z95.2 Presence of prosthetic heart valve | CPT/HCPCS: 93005; 99212 ==

== ENCOUNTER 2023-11-18 09:58 | Outpatient (AMB) | payer MEDICARE, OTHER, SELFPAY ==
[2023-11-18 10:23] VITALS: BP 132/70; PULSE 82; O2SAT 96; BMI 22.1
--- NOTE | 2023-11-18 10:23 | A.OFFVIS_ITS ---
Intake Vital Signs 11/18/23 10:23 Height 5 ft 1 in Weight 116 lb 13.52 oz BMI 22.1 BP 132/70 Blood Pressure Location Rt brachial Position Sitting Pulse 82 Pulse Source Pulse Oximeter Pulse Oximetry (%) 96 Oxygen Delivery Method Room Air Intake Visit Reasons: Pulmonary Nodule Joist Setter Required: No Allergies codeine Allergy (Severe, Verified 11/18/23 10:27) Headache levofloxacin [From Levaquin] Allergy (Severe, Verified 11/18/23 10:27) Headache tramadol [From Ultram] Allergy (Severe, Verified 11/18/23 10:27) Rash HPI HPI Comments History of Present Illness Details The patient is a 78-year-old woman with a known history of tobacco dependency, squamous cell skin cancer s/p resection several months ago and COPD. Apparently she has been dealing with thyroid disease and underwent a CT scan of the neck which demonstrated a right upper lobe pulmonary nodule. Therefore, she underwent a dedicated CT scan of the chest documented the findings. Ultimately she underwent a PET scan demonstrating that the right upper lobe nodular density had FDG of 1.4. But in addition to that she was found to have a left axillary lymph node with an FDG activity of 2.2, I right lower low nodular density within FDG of 1.5. More concerning was a left inguinal density with a FDG of 4.8. On further questioning she states that she has some weight loss in addition to night sweats and decreased appetite. The patient also was diagnosed with squamous cell carcinoma her scan status post removal with negative borders per patient's report. 04/17/2021 the patient is here for pulmonary follow-up visit. Overall the patient has been doing well. She still continues to be nervous about undergoing different evaluations. In the meantime we did discuss her CT-guided biopsy of the left enlarged inguinal lymph node that had as high as FDG activity. It demonstrated moderate amount of central are tissue consistent with lymph node. No evidence of malignancy seen. She was also evaluated by ENT with laryngoscopy and did not see any significant abnormalities on the laryngoscopy which is reassuring. The patient also had mild FDG activity in some of the pulmonary nodules and she also had a slight area of consolidation. She was treated with antibiotics. Explained to the patient that smoking by itself can resulting inflammation of the lungs. Will plan to repeat the CT scan of the chest in the coming weeks. In the meantime I did strongly encourage the patient to quit smoking prior to that study in order to see potential improvements if there is inflammation from the smoking. The patient continues to use her respiratory therapy without any issues. At this point will continue her therapies and she has completed the antibiotics. Will plan to follow-up after her next CT scan which will be the end of May. 11/26/2022 the patient is here for a pulm onary follow-up visit. Overall she is doing better. She is status post her aortic valve replacement and she did very well. She had a very brief hospitalization. She is now participating in cardio pulmonary rehabilitation. She is using her inhalers. She does complaint of dyspnea on exertion [id number] severity also feeling dizzy. We did review her blood work while she was at [facility] back in August and hemoglobin have been 9 and then 9.3. Hemoglobin prior to that it was 10.4. Therefore, explained to the patient that the anemia can result in increasing dyspnea symptoms. Specially with her underlying cardiopulmonary disease. She also underwent pulmonary function studies demonstrating moderate degree of COPD. But has severe diffusion impairment. Explained to her that the fusion impairment may have to do with anemia. Therefore she is going to go for blood work today. I will make sure to send over the blood work to her primary care doctor once available. Will plan to follow-up in 6 months or sooner if she develops any worsening symptoms. In the meantime she is going to continue with current respiratory therapy. 05/27/2023 the patient is here for pulmon maria guadalupe follow-up visit. The patient overall is doing fairly well this time. Since we last spoke the patient had a fall in her backyard and she was taken to [facility] where she was found to have for rib fractures on the right which were displaced complicated by pneumothorax. Does not appear that she had a hemothorax. She had a chest tube placed and she was admitted to the hospital. Subsequently discharged. She is feeling better overall. Did have significant pain in that area. Denies any pleuritic discomfort. She continues her inhalers which appeared to be effective. She rarely uses her rescue inhaler although she ran out and she does need to that get that renewed. In addition to that she is following closely with primary care doctor. Again it was noted that she has significant iron deficiency anemia as noted before. She needs to make sure that that is corrected specially with her underlying respiratory disease back in resulting worsening shortness of breath. The patient did have a CT scan of the chest that we personally reviewed. It is reassuring that the left upper lobe nodular density that she had that was concerning has resolved. A lot of the inflammatory changes she had also have improved. She does have some interstitial changes though and she does have some pleural based disease and some stable pulmonary nodules. In part could be secondary to her fall and injury but otherwise reassuring. On these for now we do not have to have serial CT scans. We can discuss additional CT scans during her next visit in 6 months. 11/18/2023 the patient is here for a pulm onary follow-up visit. The patient continues to lose weight. recently she did follow-up with Hematology and she was diagnosed with MGUS. She is currently being evaluated further. In addition to that she was found to have a cystic lesion on her pancreas. She is going to end the go a endoscopy before that. This is going to be a [facility]. She has had significant weight loss proximally 20 lb in the last few months. She does not have much appetite. Respiratory status she does continue to do well. She has been using her inhalers. She does get short of breath with activity. [id number] severity. Although she has been significantly deconditioned and also anemic that is also affecting her dyspnea itself. We did review her last CT scan of the chest that was back in May 2023. The patient had multiple pulmonary nodules. She is concerned with weight loss. due to her critical situation will go ahead and repeat her CT scan in 3 months time. Will have her follow-up after that. She will continue using her respiratory therapy as prescribed. If the patient has any worsening symptoms prior to the next visit she will call for an earlier assessment. [facility] Medical History (Updated 07/21/23 @ 09:11 by Johnnie Jacobson MD) Anemia Aortic stenosis Tobacco dependence Lymphadenopathy Pulmonary nodules COPD (chronic obstructive pulmonary disease) Surgical History (Updated 07/21/23 @ 09:11 by Johnnie Jacobson MD) S/P cardiac catheterization Status post transcatheter aortic valve replacement History of partial gastrectomy H/O total knee replacement Family History Other Adopted Social History Alcohol intake: former Year quit: 1979 Patient Tobacco Use Status: Former Tobacco user Quit Date: march 2022 Tobacco use type: Cigarette Cigarettes Per Day: 8 Years Smoked: 10 +/- Review of Systems Const Reports fatigue, Denies night sweats and Reports weight loss Eyes Reports change in vision ENT Denies change in voice, Reports dizziness, Denies lip swelling, Denies mouth pain, Reports nasal congestion, Reports nasal discharge and Denies tongue swelling Card Denies chest pain and Reports dyspnea on exertion Resp Denies chest congestion, Reports cough, Denies hemoptysis, Denies pain with cough and Reports dyspnea on exertion GI Denies abdominal pain Musc Reports as per HPI and Reports myalgias Neuro Denies Neuro-related abnormal movements and Reports dizziness Psych Denies no additional complaints Endo Reports fatigue Luis Alberto/Lymph Denies easy bleeding and Denies lymphadenopathy Aller/Immun Denies lip swelling and Denies tongue swelling Physical Exam Vital Signs: Last Vital Signs Pulse 82 11/18/23 10:23 BP 132/70 11/18/23 10:23 Pulse Ox 96 11/18/23 10:23 Oxygen Delivery Method Room Air 11/18/23 10:23 BMI result Body Mass Index 22.1 Const General: alert Neck Neck: Yes normal visual inspection, Yes full ROM and Yes no lymphadenopathy Chest Chest palpation & inspection: normal inspection of the chest Resp Effort & Inspection: normal respiratory effort Auscultation: diminished lung sounds Cardio Rate: regular rate Rhythm: regular rhythm Heart sounds: S1 normal heart sound present, S2 normal heart sound present and Murmur heart sound present GI Palpation (GI): Soft to palpation and nontender Auscultation: normal bowel sounds Skin General skin exam: rashes and/or lesions noted Assessment & Plan Assessment & Plan (1) Pulmonary nodules: Code(s): R91.8 - Other nonspecific abnormal finding of lung field (2) COPD (chronic obstructive pulmonary disease): Code(s): J44.9 - Chronic obstructive pulmonary disease, unspecified Qualifiers: COPD type: chronic bronchitis Chronic bronchitis type: simple Qualified Code(s): J41.0 - Simple chronic bronchitis (3) Anemia: Comment: 10.4->9.0->9.3 (08/28) Code(s): D64.9 - Anemia, unspecified Qualifiers: Anemia type: iron deficiency Iron deficiency anemia type: unspecified iron deficiency Qualified Code(s): D50.9 - Iron deficiency anemia, unspecified (4) Dyspnea: Code(s): R06.00 - Dyspnea, unspecified Qualifiers: Dyspnea type: dyspnea on exertion Qualified Code(s): R06.09 - Other forms of dyspnea Plan Continue Advair and Spiriva ANASTASIYA as needed CT chest in 3 months F/U 4 months Quality Reporting (2019) Adult ([facility] 138/10/29/68) Smoking risk assessment performed?: Yes Patient Tobacco Use Status: Former Tobacco user Coding Level of Care Code Est Pt Level 4 (37683) Diagnoses Pulmonary nodules R91.8 Simple chronic bronchitis J41.0 COPD type: chronic bronchitis Chronic bronchitis type: simple Iron deficiency anemia, unspecified iron deficiency anemia type D50.9 Anemia type: iron deficiency Iron deficiency anemia type: unspecified iron deficiency Dyspnea on exertion R06.09 Dyspnea type: dyspnea on exertion Time Spent (min) 17
== END 2023-11-18 10:53 | disposition home or self-care (01) ==
PROVIDERS: PCP Internal Medicine; Visit Provider Hospitalist
DX: R91.8 Other nonspecific abnormal finding of lung field (principal); J41.0 Simple chronic bronchitis; D50.9 Iron deficiency anemia, unspecified; R06.09 Other forms of dyspnea
CPT/HCPCS: 99214

== ENCOUNTER → 2023-11-18 09:58 | Outpatient (BNVA) | payer MEDICARE, OTHER, SELFPAY | PROVIDERS: PCP Internal Medicine; Visit Provider Hospitalist | DX: J41.0 Simple chronic bronchitis (principal); R06.00 Dyspnea, unspecified; R91.1 Solitary pulmonary nodule; D50.9 Iron deficiency anemia, unspecified; R06.09 Other forms of dyspnea; Z87.891 Personal history of nicotine dependence | CPT/HCPCS: 99212 ==

== ENCOUNTER 2024-03-16 16:40 | Outpatient (REF) | payer MEDICARE, OTHER, SELFPAY ==
--- NOTE | ~2024-03-16 | CT_ITS ---
EXAMINATION: CT CHEST WITHOUT CONTRAST CLINICAL INFORMATION: Pulmonary nodules. History of squamous cell cancer of the skin. COMPARISON: CT chest May 12, 2023 TECHNIQUE: Multidetector volumetric CT imaging of the chest was done. Axial MIP volume rendering provided. Sagittal and coronal reformatted images were obtained. This CT examination was performed using dose optimization techniques as appropriate, variously including the following: *Automated exposure control *Adjustment of mA and/or kV according to patient size (this includes techniques or standardized protocols for targeted exams where dose is matched to indication/reason for exam; i.e. extremities or head) *Use of iterative reconstruction technique DLP: 78 mGy-cm FINDINGS: LUNGS: There are centrilobular emphysematous change of lungs. There is central bronchiectasis with mild bronchial wall thickening most pronounced at the lower lobes. There are reticular nodular airspace opacities bilaterally: Right lun. Subpleural reticular opacity in the posterior right upper lobe image 116 series 5. This measures about 1.4 cm. This is new since prior exam. 2. Irregular nodular opacity in the anterior right upper lobe image 301 series 5. This measures about 1.5 x 0.7 cm. This is new since prior study May 12, 2023. 3. Vague reticular nodular peripheral airspace opacity in the right middle lobe image 372 series 5. This measures about 1.5 cm. This is new since prior study. 4. 3 mm nodule subpleural lung right middle lobe anteriorly image 381 series 5. This is unchanged since prior study. Left lun. Solid subpleural nodule peripheral left lower lobe anteriorly measuring 1.5 cm image 416 series 5. This is new since prior study. 2. There are several scattered subpleural reticular and nodular opacities measuring up to a diameter of about 5 mm in the dependent left lung. For example image 392 series 5. This could be related to atelectasis or inflammation. These are new since prior study. There are additional smaller scattered micronodules in the lungs bilaterally similar prior CAT scan 2022. MEDIASTINUM: Heart size is normal. Status post TAVR. There is no pericardial effusion. No mediastinal mass or significant lymphadenopathy. CORONARY ARTERY CALCIFICATION: Small volume of coronary calcification. PLEURA: There is no pleural effusion. No pleural mass or thickening. AXILLA: No lymphadenopathy. UPPER ABDOMEN: Unremarkable. OSSEOUS STRUCTURES: No acute osseous abnormality. Multilevel degenerative spondylosis spine. CT/CT chest wo IV con IMPRESSION: 1. Centrilobular emphysematous change of lungs. 2. Bronchiectasis with bronchial wall thickening most pronounced at the lower lobes. 3. Multiple bilateral reticular nodular airspace opacities which are new since prior CAT scan May 12, 2023. Largest is a 1.5 cm subpleural nodule in the left lower lobe. Follow-up as per oncologic guidelines. Fleischner guidelines were followed.
== END 2024-03-16 16:41 | disposition home or self-care (01) ==
LOC: HO.CT 16:40
PROVIDERS: PCP Internal Medicine; Visit Provider Hospitalist
DX: R91.8 Other nonspecific abnormal finding of lung field (principal)
CPT/HCPCS: 71250

== ENCOUNTER 2024-03-25 10:11 | Outpatient (AMB) | payer MEDICARE, OTHER, SELFPAY ==
[2024-03-25 10:29] VITALS: PULSE 87; O2SAT 97; BMI 22.1
--- NOTE | 2024-03-25 10:29 | MHC.OFFVIS ---
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 Apparently she has been dealing with thyroid disease and underwent a CT scan of the neck which demonstrated a right upper lobe pulmonary nodule. Therefore, she underwent a dedicated CT scan of the chest documented the findings. Ultimately she underwent a PET scan demonstrating that the right upper lobe nodular density had FDG of 1.4. But in addition to that she was found to have a left axillary lymph node with an FDG activity of 2.2, I right lower low nodular density within FDG of 1.5. More concerning was a left inguinal density with a FDG of 4.8. On further questioning she states that she has some weight loss in addition to night sweats and decreased appetite. The patient also was diagnosed with squamous cell carcinoma her scan status post removal with negative borders per patient's report. 04/17/2021 the patient is here for pulmonary follow-up visit. Overall the patient has been doing well. She still continues to be nervous about undergoing different evaluations. In the meantime we did discuss her CT-guided biopsy of the left enlarged inguinal lymph node that had as high as FDG activity. It demonstrated moderate amount of central are tissue consistent with lymph node. No evidence of malignancy seen. She was also evaluated by ENT with laryngoscopy and did not see any significant abnormalities on the laryngoscopy which is reassuring. The patient also had mild FDG activity in some of the pulmonary nodules and she also had a slight area of consolidation. She was treated with antibiotics. Explained to the patient that smoking by itself can resulting inflammation of the lungs. Will plan to repeat the CT scan of the chest in the coming weeks. In the meantime I did strongly encourage the patient to quit smoking prior to that study in order to see potential improvements if there is inflammation from the smoking. The patient continues to use her respiratory therapy without any issues. At this point will continue her therapies and she has completed the antibiotics. Will plan to follow-up after her next CT scan which will be the end of May. 11/26/2022 the patient is here for a pulmonary follow-up visit. Overall she is doing better. She is status post her aortic valve replacement and she did very well. She had a very brief hospitalization. She is now participating in cardio pulmonary rehabilitation. She is using her inhalers. She does complaint of dyspnea on exertion [id number] severity also feeling dizzy. We did review her blood work while she was at [facility] back in August and hemoglobin have been 9 and then 9.3. Hemoglobin prior to that it was 10.4. Therefore, explained to the patient that the anemia can result in increasing dyspnea symptoms. Specially with her underlying cardiopulmonary disease. She also underwent pulmonary function studies demonstrating moderate degree of COPD. But has severe diffusion impairment. Explained to her that the fusion impairment may have to do with anemia. Therefore she is going to go for blood work today. I will make sure to send over the blood work to her primary care doctor once available. Will plan to follow-up in 6 months or sooner if she develops any worsening symptoms. In the meantime she is going to continue with current respiratory therapy. 05/27/2023 the patient is here for pulmonary follow-up visit. The patient overall is doing fairly well this time. Since we last spoke the patient had a fall in her backyard and she was taken to [facility] where she was found to have for rib fractures on the right which were displaced complicated by pneumothorax. Does not appear that she had a hemothorax. She had a chest tube placed and she was admitted to the hospital. Subsequently discharged. She is feeling better overall. Did have significant pain in that area. Denies any pleuritic discomfort. She continues her inhalers which appeared to be effective. She rarely uses her rescue inhaler although she ran out and she does need to that get that renewed. In addition to that she is following closely with primary care doctor. Again it was noted that she has significant iron deficiency anemia as noted before. She needs to make sure that that is corrected specially with her underlying respiratory disease back in resulting worsening shortness of breath. The patient did have a CT scan of the chest that we personally reviewed. It is reassuring that the left upper lobe nodular density that she had that was concerning has resolved. A lot of the inflammatory changes she had also have improved. She does have some interstitial changes though and she does have some pleural based disease and some stable pulmonary nodules. In part could be secondary to her fall and injury but otherwise reassuring. On these for now we do not have to have serial CT scans. We can discuss additional CT scans during her next visit in 6 months. 11/18/2023 the patient is here for a pulmonary follow-up visit. The patient continues to lose weight. recently she did follow-up with Hematology and she was diagnosed with MGUS. She is currently being evaluated further. In addition to that she was found to have a cystic lesion on her pancreas. She is going to end the go a endoscopy before that. This is going to be a [facility]. She has had significant weight loss proximally 20 lb in the last few months. She does not have much appetite. Respiratory status she does continue to do well. She has been using her inhalers. She does get short of breath with activity. [id number] severity. Although she has been significantly deconditioned and also anemic that is also affecting her dyspnea itself. We did review her last CT scan of the chest that was back in May 2023. The patient had multiple pulmonary nodules. She is concerned with weight loss. due to her critical situation will go ahead and repeat her CT scan in 3 months time. Will have her follow-up after that. She will continue using her respiratory therapy as prescribed. If the patient has any worsening symptoms prior to the next visit she will call for an earlier assessment. 03/25/2024 the patient is here for a pulmonary follow-up visit. The patient has had issues with weight loss still. She has decreased appetite. She was admitted briefly to [facility] after being found dehydrated. She was evaluated and discharged. She continues on respiratory therapy. The patient did have a CT scan of the chest which we personally reviewed together. Has not been officially read although she appears to have a new 1.5 cm pulmonary nodule in the periphery of the left lung. She has other pulmonary nodules bilaterally. At this point with her significant weight loss decreased appetite and this abnormal findings concerning for malignancy will go ahead and order a PET scan. [facility] Medical History (Updated 07/21/23 @ 09:11 by Johnnie Jacobson MD) Anemia Aortic stenosis Tobacco dependence Lymphadenopathy Pulmonary nodules COPD (chronic obstructive pulmonary disease) Surgical History (Updated 07/21/23 @ 09:11 by Johnnie Jacobson MD) S/P cardiac catheterization Status post transcatheter aortic valve replacement History of partial gastrectomy H/O total knee replacement Family History Other Adopted Social History Alcohol intake: former Year quit: 1979 Patient Tobacco Use Status: Former Tobacco user Tobacco use type: Cigarette Cigarettes Per Day: 8 Years Smoked: 10 +/- Review of Systems Const Reports fatigue, Denies night sweats and Reports weight loss Eyes Reports change in vision ENT Denies change in voice, Reports dizziness, Denies lip swelling, Denies mouth pain, Reports nasal congestion, Reports nasal discharge and Denies tongue swelling Card Denies chest pain and Reports dyspnea on exertion Resp Denies chest congestion, Reports cough, Denies hemoptysis, Denies pain with cough and Reports dyspnea on exertion GI Denies abdominal pain Musc Reports as per HPI and Reports myalgias Neuro Denies Neuro-related abnormal movements and Reports dizziness Psych Denies no additional complaints Endo Reports fatigue Luis Alberto/Lymph Denies easy bleeding and Denies lymphadenopathy Aller/Immun Denies lip swelling and Denies tongue swelling Physical Exam Vital Signs: Last Vital Signs Pulse 87 03/25/24 10:29 Pulse Ox 97 03/25/24 10:29 Oxygen Delivery Method Room Air 03/25/24 10:29 BMI result Body Mass Index 22.1 Const General: alert Neck Neck: Yes normal visual inspection, Yes full ROM and Yes no lymphadenopathy Chest Chest palpation & inspection: normal inspection of the chest Resp Effort & Inspection: normal respiratory effort Auscultation: diminished lung sounds Cardio Rate: regular rate Rhythm: regular rhythm Heart sounds: S1 normal heart sound present, S2 normal heart sound present and Murmur heart sound present GI Palpation (GI): Soft to palpation and nontender Auscultation: normal bowel sounds Skin General skin exam: rashes and/or lesions noted Quality Reporting (2019) Adult ([facility] 138/10/29/68) Smoking risk assessment performed?: Yes Patient Tobacco Use Status: Former Tobacco user Assessment & Plan Assessment & Plan (1) Pulmonary nodules: Code(s): R91.8 - Other nonspecific abnormal finding of lung field Category: Medical (2) COPD (chronic obstructive pulmonary disease): Code(s): J44.9 - Chronic obstructive pulmonary disease, unspecified Category: Medical Qualifiers: COPD type: chronic bronchitis Chronic bronchitis type: simple Qualified Code(s): J41.0 - Simple chronic bronchitis (3) Anemia: Comment: 10.4->9.0->9.3 (08/28) Code(s): D64.9 - Anemia, unspecified Category: Medical Qualifiers: Anemia type: iron deficiency Iron deficiency anemia type: unspecified iron deficiency Qualified Code(s): D50.9 - Iron deficiency anemia, unspecified (4) Dyspnea: Code(s): R06.00 - Dyspnea, unspecified Category: Medical Qualifiers: Dyspnea type: dyspnea on exertion Qualified Code(s): R06.09 - Other forms of dyspnea Plan Continue Advair and Spiriva ANASTASIYA as needed PET scan F/U 1-2 months Medications: New ipratropium-albuterol 0.5 mg-3 mg(2.5 mg base)/3 mL 3 mL inhalation BID 180 mL 11RF 30 days J44.9 - Chronic obstructive pulmonary disease, unspecified Coding Level of Care Code Est Pt Level 5 (20400) Diagnoses Pulmonary nodules R91.8 Simple chronic bronchitis J41.0 COPD type: chronic bronchitis Chronic bronchitis type: simple Iron deficiency anemia, unspecified iron deficiency anemia type D50.9 Anemia type: iron deficiency Iron deficiency anemia type: unspecified iron deficiency Dyspnea on exertion R06.09 Dyspnea type: dyspnea on exertion Time Spent (min) 30
== END 2024-03-25 10:56 | disposition home or self-care (01) ==
PROVIDERS: PCP Internal Medicine; Visit Provider Hospitalist
DX: R91.8 Other nonspecific abnormal finding of lung field (principal); J41.0 Simple chronic bronchitis; D50.9 Iron deficiency anemia, unspecified
CPT/HCPCS: 99214

== ENCOUNTER → 2024-03-25 10:11 | Outpatient (BNVA) | payer MEDICARE, OTHER, SELFPAY | PROVIDERS: PCP Internal Medicine; Visit Provider Hospitalist | DX: J41.0 Simple chronic bronchitis (principal); R91.8 Other nonspecific abnormal finding of lung field; D64.9 Anemia, unspecified; Z87.891 Personal history of nicotine dependence; D50.9 Iron deficiency anemia, unspecified; R06.09 Other forms of dyspnea | CPT/HCPCS: 99212 ==

== ENCOUNTER 2024-05-20 10:23 | Outpatient (AMB) | payer MEDICARE, OTHER, SELFPAY ==
[2024-05-20 10:30] VITALS: BP 132/70; PULSE 82; O2SAT 97; BMI 22.1
--- NOTE | 2024-05-20 10:30 | A.OFFVIS_ITS ---
Vital Signs 05/20/24 10:30 Height 5 ft 1 in Weight 116 lb 13.52 oz BMI 22.1 BP 132/70 Blood Pressure Location Lt brachial Position Sitting Pulse 82 Pulse Source Pulse Oximeter Pulse Oximetry (%) 97 Oxygen Delivery Method Room Air Intake Visit Reasons: Pulmonary Nodule/PET Scan Follow Up Rn Clinical Review Required: No Allergies codeine Allergy (Severe, Verified 05/20/24 10:33) Headache levofloxacin [From Levaquin] Allergy (Severe, Verified 05/20/24 10:33) Headache tramadol [From Ultram] Allergy (Severe, Verified 05/20/24 10:33) Rash HPI Comments Details: The patient is a 78-year-old woman with a known history of tobacco dependency, squamous cell skin cancer s/p resection several months ago and COPD. Apparently she has been dealing with thyroid disease and underwent a CT scan of the neck which demonstrated a right upper lobe pulmonary nodule. Therefore, she underwent a dedicated CT scan of the chest documented the findings. Ultimately she underwent a PET scan demonstrating that the right upper lobe nodular density had FDG of 1.4. But in addition to that she was found to have a left axillary lymph node with an FDG activity of 2.2, I right lower low nodular density within FDG of 1.5. More concerning was a left inguinal density with a FDG of 4.8. On further questioning she states that she has some weight loss in addition to night sweats and decreased appetite. The patient also was diagnosed with squamous cell carcinoma her scan status post removal with negative borders per patient's report. 04/17/2021 the patient is here for pulmonary follow-up visit. Overall the patient has been doing well. She still continues to be nervous about undergoing different evaluations. In the meantime we did discuss her CT-guided biopsy of the left enlarged inguinal lymph node that had as high as FDG activity. It demonstrated moderate amount of central are tissue consistent with lymph node. No evidence of malignancy seen. She was also evaluated by ENT with laryngoscopy and did not see any significant abnormalities on the laryngoscopy which is reassuring. The patient also had mild FDG activity in some of the pulmonary nodules and she also had a slight area of consolidation. She was treated with antibiotics. Explained to the patient that smoking by itself can resulting inflammation of the lungs. Will plan to repeat the CT scan of the chest in the coming weeks. In the meantime I did strongly encourage the patient to quit smoking prior to that study in order to see potential improvements if there is inflammation from the smoking. The patient continues to use her respiratory therapy without any issues. At this point will continue her therapies and she has completed the antibiotics. Will plan to follow-up after her next CT scan which will be the end of May. 11/26/2022 the patient is here for a pulmonary follow-up visit. Overall she is doing better. She is status post her aortic valve replacement and she did very well. She had a very brief hospitalization. She is now participating in cardio pulmonary rehabilitation. She is using her inhalers. She does complaint of dyspnea on exertion [id number] severity also feeling dizzy. We did review her blood work while she was at [facility] back in August and hemoglobin have been 9 and then 9.3. Hemoglobin prior to that it was 10.4. Therefore, explained to the patient that the anemia can result in increasing dyspnea symptoms. Specially with her underlying cardiopulmonary disease. She also underwent pulmonary function studies demonstrating moderate degree of COPD. But has severe diffusion impairment. Explained to her that the fusion impairment may have to do with anemia. Therefore she is going to go for blood work today. I will make sure to send over the blood work to her primary care doctor once available. Will plan to follow-up in 6 months or sooner if she develops any worsening symptoms. In the meantime she is going to continue with current respiratory therapy. 05/27/2023 the patient is here for pulmonary follow-up visit. The patient overall is doing fairly well this time. Since we last spoke the patient had a fall in her backyard and she was taken to [facility] where she was found to have for rib fractures on the right which were displaced complicated by pneumothorax. Does not appear that she had a hemothorax. She had a chest tube placed and she was admitted to the hospital. Subsequently discharged. She is feeling better overall. Did have significant pain in that area. Denies any pleuritic discomfort. She continues her inhalers which appeared to be effective. She rarely uses her rescue inhaler although she ran out and she does need to that get that renewed. In addition to that she is following closely with primary care doctor. Again it was noted that she has significant iron deficiency anemia as noted before. She needs to make sure that that is corrected specially with her underlying respiratory disease back in resulting worsening shortness of breath. The patient did have a CT scan of the chest that we personally reviewed. It is reassuring that the left upper lobe nodular density that she had that was concerning has resolved. A lot of the inflammatory changes she had also have improved. She does have some i nterstitial changes though and she does have some pleural based disease and some stable pulmonary nodules. In part could be secondary to her fall and injury but otherwise reassuring. On these for now we do not have to have serial CT scans. We can discuss additional CT scans during her next visit in 6 months. 11/18/2023 the patient is here for a pulmonary follow-up visit. The patient continues to lose weight. recently she did follow-up with Hematology and she was diagnosed with MGUS. She is currently being evaluated further. In addition to that she was found to have a cystic lesion on her pancreas. She is going to end the go a endoscopy before that. This is going to be a [facility]. She has had significant weight loss proximally 20 lb in the last few months. She does not have much appetite. Respiratory status she does continue to do well. She has been using her inhalers. She does get short of breath with activity. Esjg-ka-ptyedmhf severity. Although she has been significantly deconditioned and also anemic that is also affecting her dyspnea itself. We did review her last CT scan of the chest that was back in May 2023. The patient had multiple pulmonary nodules. She is concerned with weight loss. due to her critical situation will go ahead and repeat her CT scan in 3 months time. Will have her follow-up after that. She will continue using her respiratory therapy as prescribed. If the patient has any worsening symptoms prior to the next visit she will call for an earlier assessment. 03/25/2024 the patient is here for a pulmonary follow-up visit. The patient has had issues with weight loss still. She has decreased appetite. She was admitted briefly to [facility] after being found dehydrated. She was evaluated and discharged. She continues on respiratory therapy. The patient did have a CT scan of the chest which we personally reviewed together. Has not been officially read although she appears to have a new 1.5 cm pulmonary nodule in the periphery of the left lung. She has other pulmonary nodules bilaterally. At this point with her significant weight loss decreased appetite and this abnormal findings concerning for malignancy will go ahead and order a PET scan. 05/20/2024 the patient is here for pulmonary follow-up visit. The patient still complains of her weight loss issues. Also having shortness of breath with activity mild in severity. She did undergo a PET scan because of the abnormal findings on the CT scan. The FDG activity of the pulmonary nodules appear to be minimal. Likely more inflammatory or infectious process. Still that she did have increased FDG activity around the throat area and the question of malignancy did come up I have a concern. Therefore is recommended that she undergo laryngoscopy from ENT. I will refer her urgently to ENT at this time to follow-up with the abnormalities. She also had FDG activity of the esophagus. Likely consistent with esophagitis. She does take a PPI the patient does not have any symptoms at this time. If her symptoms were to worsen then additional medication or GI evaluation will be warranted. For now will continue with resp iratory therapy. Will follow-up in 6 months after her repeat CT scan. [facility] Medical History (Updated 05/20/24 @ 10:48 by Vinod Ring MD) Abnormal PET scan of head Anemia Aortic stenosis Tobacco dependence Lymphadenopathy Pulmonary nodules COPD (chronic obstructive pulmonary disease) Surgical History (Updated 07/21/23 @ 09:11 by Johnnie Jacobson MD) S/P cardiac catheterization Status post transcatheter aortic valve replacement History of partial gastrectomy H/O total knee replacement Family History Other Adopted Social History Alcohol intake: former Year quit: 1979 Patient Tobacco Use Status: Former Tobacco user Tobacco use type: Cigarette Cigarettes Per Day: 8 Years Smoked: 10 +/- Review of Systems Const Reports fatigue, Denies night sweats and Reports weight loss Eyes Reports change in vision ENT Denies change in voice, Reports dizziness, Denies lip swelling, Denies mouth pain, Reports nasal congestion, Reports nasal discharge and Denies tongue swelling Card Denies chest pain and Reports dyspnea on exertion Resp Denies chest congestion, Reports cough, Denies hemoptysis, Denies pain with cough and Reports dyspnea on exertion GI Denies abdominal pain Musc Reports as per HPI and Reports myalgias Neuro Denies Neuro-related abnormal movements and Reports dizziness Psych Denies no additional complaints Endo Reports fatigue Luis Alberto/Lymph Denies easy bleeding and Denies lymphadenopathy Aller/Immun Denies lip swelling and Denies tongue swelling Physical Exam Vital Signs: Last Vital Signs Pulse 82 05/20/24 10:30 BP 132/70 05/20/24 10:30 Pulse Ox 97 05/20/24 10:30 Oxygen Delivery Method Room Air 05/20/24 10:30 BMI result Body Mass Index 22.1 Const General: alert Neck Neck: Yes normal visual inspection, Yes full ROM and Yes no lymphadenopathy Chest Chest palpation & inspection: normal inspection of the chest Resp Effort & Inspection: normal respiratory effort Auscultation: diminished lung sounds Cardio Rate: regular rate Rhythm: regular rhythm Heart sounds: S1 normal heart sound present, S2 normal heart sound present and Murmur heart sound present GI Palpation (GI): Soft to palpation and nontender Auscultation: normal bowel sounds Skin General skin exam: rashes and/or lesions noted Quality Reporting (2019) Adult ([facility] ) Smoking risk assessment performed?: Yes Patient Tobacco Use Status: Former Tobacco user Assessment & Plan Assessment & Plan (1) Abnormal PET scan of head: Code(s): R94.02 - Abnormal brain scan Category: Medical (2) Pulmonary nodules: Code(s): R91.8 - Other nonspecific abnormal finding of lung field Category: Medical (3) COPD (chronic obstructive pulmonary disease): Code(s): J44.9 - Chronic obstructive pulmonary disease, unspecified Category: Medical Qualifiers: COPD type: chronic bronchitis Chronic bronchitis type: simple Qualified Code(s): J41.0 - Simple chronic bronchitis (4) Anemia: Comment: 10.4->9.0->9.3 (08/28) Code(s): D64.9 - Anemia, unspecified Category: Medical Qualifiers: Anemia type: iron deficiency Iron deficiency anemia type: unspecified iron deficiency Qualified Code(s): D50.9 - Iron deficiency anemia, unspecified (5) Dyspnea: Code(s): R06.00 - Dyspnea, unspecified Category: Medical Qualifiers: Dyspnea type: dyspnea on exertion Qualified Code(s): R06.09 - Other forms of dyspnea Plan Continue Advair and Spiriva ANASTASIYA as needed ENT referral to evaluate the abn PET findings CT chest in 6 months Prevnar 20 F/U 6 months Orders: Orders Pneumococcal 20 Immunization 05/20/24 Z23 - Encounter for immunization Referrals Ear/Nose/Throat Referral R94.02 - Abnormal brain scan Coding Level of Care Code Est Pt Level 4 (51762) Complex EM visit Add On G2211 Diagnoses Abnormal PET scan of head R94.02 Pulmonary nodules R91.8 Simple chronic bronchitis J41.0 COPD type: chronic bronchitis Chronic bronchitis type: simple Iron deficiency anemia, unspecified iron deficiency anemia type D50.9 Anemia type: iron deficiency Iron deficiency anemia type: unspecified iron deficiency Dyspnea on exertion R06.09 Dyspnea type: dyspnea on exertion Time Spent (min) 17
== END 2024-05-20 11:00 | disposition home or self-care (01) ==
PROVIDERS: PCP Internal Medicine; Visit Provider Hospitalist
DX: R94.02 Abnormal brain scan (principal); R91.8 Other nonspecific abnormal finding of lung field; J41.0 Simple chronic bronchitis; D50.9 Iron deficiency anemia, unspecified; R06.09 Other forms of dyspnea
CPT/HCPCS: 90471; 99214; G2211

== ENCOUNTER → 2024-05-20 10:23 | Outpatient (BNVA) | payer MEDICARE, OTHER, SELFPAY | PROVIDERS: PCP Internal Medicine; Visit Provider Hospitalist | DX: J41.0 Simple chronic bronchitis (principal); R94.02 Abnormal brain scan; R91.8 Other nonspecific abnormal finding of lung field; R06.09 Other forms of dyspnea; D50.9 Iron deficiency anemia, unspecified; Z23 Encounter for immunization | CPT/HCPCS: 90471; 90677; 99212 ==

== ENCOUNTER → 2024-07-05 10:59 | Outpatient (REF) | payer MEDICARE, OTHER, SELFPAY ==
--- NOTE | 2024-07-05 11:02 | CA_ITS ---
Transthoracic Echocardiogram Patient (Last, First, Middle): Kiki Walton E Gender: Female Date of : 1945 Age: 78 Procedure Date: 07/05/2024 Procedure Type: Transthoracic Echocardiogram Location: OP Height: 154.94 cm Weight: 45.81 kg BSA: 1.41 m2 Heart Rate: 73 bpm BP: 130 / 72 mmHg Clinical Laboratory Medical Director: SB Referring MD: Johnnie Jacobson MD Symptoms: Z95.2 - Presence of prosthetic heart valve Study Quality: Technically Difficult/Coughing Spasms ECG Rhythm: Frequent atrial premature beats Conclusions: - The left ventricular systolic function is normal. The calculated ejection fraction is 59% by biplane method. - The inferolateral wall and basal inferior segment are akinetic. - A bioprosthetic aortic valve is present. The prosthetic aortic valve appears to be functioning normally. - Mild pulmonary hypertension is present. Findings Procedure Information The quality of the study was technically difficult. The study quality is limited by lung artifact. Left Ventricle Normal left ventricular cavity size. There is normal left ventricular wall thickness. The left ventricular systolic function is normal. The calculated ejection fraction is 59% by biplane method. There is no evidence of regional wall motion abnormalities. Evidence suggests grade I (mild) diastolic dysfunction. Wall Motion Rest Echo Findings The inferolateral wall and basal inferior segment are akinetic. Right Ventricle Normal right ventricular cavity size and systolic function. Atria Both atria are normal in size. Aortic Valve A bioprosthetic aortic valve is present. The prosthetic aortic valve appears to be functioning normally. There is no aortic valve regurgitation. Mitral Valve The mitral valve appears normal. There is mild mitral valve regurgitation. There is no mitral valve stenosis. Pulmonic Valve The pulmonic valve is likely normal. Tricuspid Valve There is mild tricuspid valve regurgitation. Mild pulmonary hypertension is present. Great Vessels The aorta was not well visualized. Venous The inferior vena cava is normal in size and collapses greater than 50% with inspiration. Pericardium/Pleural There is no evidence of pericardial effusion. Prior Study Comparison No significant change compared to prior study dated: 07/13/2023. see comment on wall motion; however, suggestion of the same in prior images. Measurements 2D Linear Measurements IVSd: 0.89 0.6-0.9/0.6-1.0 cm LVIDd: 4.06 3.9-5.3/4.2-5.9 cm LVIDd Index: 2.88 2.4-3.2/2.2-3.1 cm/m2 LVIDs: 3.29 2.0-3.6 cm LVPWd: 0.63 0.7-1.1 cm LA Diam: 3.30 2.7-3.8/3.0-4.0 cm LAIDs Index: 2.34 1.5-2.3 cm/m2 LV Mass: 110.90 67-162/88-224 g LV Mass Index: 78.65 43-95/49-115 g/m2 LVOT Diam: 1.60 3.0+(-)1.3 cm 2D Systolic Function EF 4C: 62.90 >55% EF 2C: 52.90 >55% EF BiP: 58.70 >55% Mitral Valve MV Pk E: 0.97 MV PK A: 1.14 MV Decel Time: 182.00 E/A: 0.80 E'Lateral: 5.87 E'Medial: 5.44 E/E' Med: 17.80 E/E' Lat: 16.50 PHT: 53.00 MVA PHT: 4.15 Decel [place]: 5.32 Aortic Valve AoV Pk Davis: 1.99 AoV Mn Davis: 1.31 AoV VTI: 0.38 AoV Pk Grad: 16.00 Aov Mn Grad: 8.00 CHRISTEN Cont.VTI: 0.79 LVOT LVOT Pk Davis: 0.73 LVOT Mn Davis: 0.51 LVOT VTI: 0.15 LVOT Pk Grad: 2.00 LVOT Mn Grad: 1.00 LVOT Diam: 1.60 LVOT Area: 2.01 Diastolic Function MV Pk E: 0.97 MV Pk A: 1.14 E/A: 0.80 E'Medial: 5.44 E/E' Med: 17.80 E' Laterial: 5.87 E/E' Lat: 16.50 Right Ventricle TAPSE (mm): 21.20 TVS' Davis: 12.90 Tricuspid Valve TR Pk Davis: 3.01 TR Pk Grad: 36.00 RA Press: 3.00 RVSP: 39.00 Updated in Other Vendor System with Status of Final Dusty Xiong MD electronically signed on 07/07/2024 11:19:58 AM with status of Final
== END ==
LOC: HO.CARD 10:59
PROVIDERS: PCP Internal Medicine; Visit Provider Internal Medicine Cardiovascular Disease
DX: Z95.2 Presence of prosthetic heart valve (principal)
CPT/HCPCS: 93306

== ENCOUNTER → 2024-07-05 11:02 | Outpatient (BNV) | payer MEDICARE, OTHER, SELFPAY | PROVIDERS: PCP Internal Medicine; Visit Provider Internal Medicine | DX: I34.0 Nonrheumatic mitral (valve) insufficiency (principal); I36.1 Nonrheumatic tricuspid (valve) insufficiency; I51.89 Other ill-defined heart diseases; Z95.3 Presence of xenogenic heart valve | CPT/HCPCS: 93306 ==

== ENCOUNTER 2024-07-08 15:35 | Outpatient (AMB) | payer MEDICARE, OTHER, SELFPAY ==
--- NOTE | 2024-07-08 15:50 | MHC.OFFVIS ---
Vital Signs 07/08/24 15:51 Height 5 ft 1 in Weight 105 lb 13.15 oz BMI 20.0 BP 142/80 H Blood Pressure Location Rt brachial Position Sitting Pulse 68 Pulse Source Pulse Oximeter Pulse Oximetry (%) 98 Oxygen Delivery Method Room Air Intake Visit Reasons: chest congestion, wheezing Allergies codeine Allergy (Severe, Verified 07/08/24 15:55) Headache levofloxacin [From Levaquin] Allergy (Severe, Verified 07/08/24 15:55) Headache tramadol [From Ultram] Allergy (Severe, Verified 07/08/24 15:55) Rash HPI Comments Details: The patient is a 78-year-old woman with a known history of tobacco dependency, squamous cell skin cancer s/p resection several months ago and COPD. Apparently she has been dealing with thyroid disease and underwent a CT scan of the neck which demonstrated a right upper lobe pulmonary nodule. Therefore, she underwent a dedicated CT scan of the chest documented the findings. Ultimately she underwent a PET scan demonstrating that the right upper lobe nodular density had FDG of 1.4. But in addition to that she was found to have a left axillary lymph node with an FDG activity of 2.2, I right lower low nodular density within FDG of 1.5. More concerning was a left inguinal density with a FDG of 4.8. On further questioning she states that she has some weight loss in addition to night sweats and decreased appetite. The patient also was diagnosed with squamous cell carcinoma her scan status post removal with negative borders per patient's report. 04/17/2021 the patient is here for pulmonary follow-up visit. Overall the patient has been doing well. She still continues to be nervous about undergoing different evaluations. In the meantime we did discuss her CT-guided biopsy of the left enlarged inguinal lymph node that had as high as FDG activity. It demonstrated moderate amount of central are tissue consistent with lymph node. No evidence of malignancy seen. She was also evaluated by ENT with laryngoscopy and did not see any significant abnormalities on the laryngoscopy which is reassuring. The patient also had mild FDG activity in some of the pulmonary nodules and she also had a slight area of consolidation. She was treated with antibiotics. Explained to the patient that smoking by itself can resulting inflammation of the lungs. Will plan to repeat the CT scan of the chest in the coming weeks. In the meantime I did strongly encourage the patient to quit smoking prior to that study in order to see potential improvements if there is inflammation from the smoking. The patient continues to use her respiratory therapy without any issues. At this point will continue her therapies and she has completed the antibiotics. Will plan to follow-up after her next CT scan which will be the end of May. 11/26/2022 the patient is here for a pulmonary follow-up visit. Overall she is doing better. She is status post her aortic valve replacement and she did very well. She had a very brief hospitalization. She is now participating in cardio pulmonary rehabilitation. She is using her inhalers. She does complaint of dyspnea on exertion [id number] severity also feeling dizzy. We did review her blood work while she was at [facility] back in August and hemoglobin have been 9 and then 9.3. Hemoglobin prior to that it was 10.4. Therefore, explained to the patient that the anemia can result in increasing dyspnea symptoms. Specially with her underlying cardiopulmonary disease. She also underwent pulmonary function studies demonstrating moderate degree of COPD. But has severe diffusion impairment. Explained to her that the fusion impairment may have to do with anemia. Therefore she is going to go for blood work today. I will make sure to send over the blood work to her primary care doctor once available. Will plan to follow-up in 6 months or sooner if she develops any worsening symptoms. In the meantime she is going to continue with current respiratory therapy. 05/27/2023 the patient is here for pulmonary follow-up visit. The patient overall is doing fairly well this time. Since we last spoke the patient had a fall in her backyard and she was taken to [facility] where she was found to have for rib fractures on the right which were displaced complicated by pneumothorax. Does not appear that she had a hemothorax. She had a chest tube placed and she was admitted to the hospital. Subsequently discharged. She is feeling better overall. Did have significant pain in that area. Denies any pleuritic discomfort. She continues her inhalers which appeared to be effective. She rarely uses her rescue inhaler although she ran out and she does need to that get that renewed. In addition to that she is following closely with primary care doctor. Again it was noted that she has significant iron deficiency anemia as noted before. She needs to make sure that that is corrected specially with her underlying respiratory disease back in resulting worsening shortness of breath. The patient did have a CT scan of the chest that we personally reviewed. It is reassuring that the left upper lobe nodular density that she had that was concerning has resolved. A lot of the inflammatory changes she had also have improved. She does have some interstitial changes though and she does have some pleural based disease and some stable pulmonary nodules. In part could be secondary to her fall and injury but otherwise reassuring. On these for now we do not have to have serial CT scans. We can discuss additional CT scans during her next visit in 6 months. 11/18/2023 the patient is here for a pulmonary follow-up visit. The patient continues to lose weight. recently she did follow-up with Hematology and she was diagnosed with MGUS. She is currently being evaluated further. In addition to that she was found to have a cystic lesion on her pancreas. She is going to end the go a endoscopy before that. This is going to be a [facility]. She has had significant weight loss proximally 20 lb in the last few months. She does not have much appetite. Respiratory status she does continue to do well. She has been using her inhalers. She does get short of breath with activity. Jztc-iw-iyigceyl severity. Although she has been significantly deconditioned and also anemic that is also affecting her dyspnea itself. We did review her last CT scan of the chest that was back in May 2023. The patient had multiple pulmonary nodules. She is concerned with weight loss. due to her critical situation will go ahead and repeat her CT scan in 3 months time. Will have her follow-up after that. She will continue using her respiratory therapy as prescribed. If the patient has any worsening symptoms prior to the next visit she will call for an earlier assessment. 03/25/2024 the patient is here for a pulmonary follow-up visit. The patient has had issues with weight loss still. She has decreased appetite. She was admitted briefly to [facility] after being found dehydrated. She was evaluated and discharged. She continues on respiratory therapy. The patient did have a CT scan of the chest which we personally reviewed together. Has not been officially read although she appears to have a new 1.5 cm pulmonary nodule in the periphery of the left lung. She has other pulmonary nodules bilaterally. At this point with her significant weight loss decreased appetite and this abnormal findings concerning for malignancy will go ahead and order a PET scan. 05/20/2024 the patient is here for pulmonary follow-up visit. The patient still complains of her weight loss issues. Also having shortness of breath with activity mild in severity. She did undergo a PET scan because of the abnormal findings on the CT scan. The FDG activity of the pulmonary nodules appear to be minimal. Likely more inflammatory or infectious process. Still that she did have increased FDG activity around the throat area and the question of malignancy did come up I have a concern. Therefore is recommended that she undergo laryngoscopy from ENT. I will refer her urgently to ENT at this time to follow-up with the abnormalities. She also had FDG activity of the esophagus. Likely consistent with esophagitis. She does take a PPI the patient does not have any symptoms at this time. If her symptoms were to worsen then additional medication or GI evaluation will be warranted. For now will continue with respiratory therapy. Will follow-up in 6 months after her repeat CT scan. 07/08/2024 the patient is here for a Sick visit. She has been complaining of worsening cough chest congestion and wheezing. She has been sick now for about a week. Bhia-dsz-xjvucff medications are not effective for her. Her cough is significant does not let her sleep. Moderate severity. She did follow-up with ENT. No significant findings based on the abnormal PET scan in that larynx. This is all reassuring. She will continue to get imaging studies to follow-up pulmonary nodules. But in the meantime will go ahead and treated for a COPD exacerbation as she does have significant chest congestion and wheezing. The patient does not like to take prednisone for will give her a lower dose at this time. If she does not feel like her symptoms are getting any better she may need a higher dose and she can always call for that. [facility] Medical History (Updated 07/10/24 @ 19:50 by Vinod Ring MD) Abnormal PET scan of head Anemia Aortic stenosis Tobacco dependence Lymphadenopathy Pulmonary nodules COPD (chronic obstructive pulmonary disease) Surgical History (Updated 07/21/23 @ 09:11 by Johnnie Jacobson MD) S/P cardiac catheterization Status post transcatheter aortic valve replacement History of partial gastrectomy H/O total knee replacement Family History Other Adopted Social History Alcohol intake: former Year quit: 1979 Patient Tobacco Use Status: Former Tobacco user Tobacco use type: Cigarette Cigarettes Per Day: 8 Years Smoked: 10 +/- Review of Systems Const Reports fatigue, Denies night sweats and Reports weight loss Eyes Reports change in vision ENT Denies change in voice, Reports dizziness, Denies lip swelling, Denies mouth pain, Reports nasal congestion, Reports nasal discharge and Denies tongue swelling Card Denies chest pain and Reports dyspnea on exertion Resp Reports change in phlegm color, Reports chest congestion, Reports cough, Denies hemoptysis, Denies pain with cough, Reports dyspnea on exertion and Reports wheezing GI Denies abdominal pain Musc Reports as per HPI and Reports myalgias Neuro Denies Neuro-related abnormal movements and Reports dizziness Psych Denies no additional complaints Endo Reports fatigue Luis Alberto/Lymph Denies easy bleeding and Denies lymphadenopathy Aller/Immun Denies lip swelling, Denies tongue swelling and Reports wheezing Physical Exam Vital Signs: Last Vital Signs Pulse 68 07/08/24 15:51 BP 142/80 H 07/08/24 15:51 Pulse Ox 98 07/08/24 15:51 Oxygen Delivery Method Room Air 07/08/24 15:51 BMI result Body Mass Index 20.0 Const General: alert Neck Neck: Yes normal visual inspection, Yes full ROM and Yes no lymphadenopathy Chest Chest palpation & inspection: normal inspection of the chest Resp Effort & Inspection: normal respiratory effort and prolonged expiratory phase Auscultation: rhonchi, wheezes and diminished lung sounds Cardio Rate: regular rate Rhythm: regular rhythm Heart sounds: S1 normal heart sound present, S2 normal heart sound present and Murmur heart sound present GI Palpation (GI): Soft to palpation and nontender Auscultation: normal bowel sounds Skin General skin exam: rashes and/or lesions noted Quality Reporting (2019) Adult ([facility] [address]/29/68) Smoking risk assessment performed?: Yes Patient Tobacco Use Status: Former Tobacco user Assessment & Plan Assessment & Plan (1) Pulmonary nodules: Code(s): R91.8 - Other nonspecific abnormal finding of lung field Category: Medical (2) COPD (chronic obstructive pulmonary disease): Code(s): J44.9 - Chronic obstructive pulmonary disease, unspecified Category: Medical Qualifiers: COPD type: COPD with acute exacerbation Qualified Code(s): J44.1 - Chronic obstructive pulmonary disease with (acute) exacerbation (3) Anemia: Comment: 10.4->9.0->9.3 (08/28) Code(s): D64.9 - Anemia, unspecified Category: Medical Qualifiers: Anemia type: iron deficiency Iron deficiency anemia type: unspecified iron deficiency Qualified Code(s): D50.9 - Iron deficiency anemia, unspecified (4) Dyspnea: Code(s): R06.00 - Dyspnea, unspecified Category: Medical Qualifiers: Dyspnea type: dyspnea on exertion Qualified Code(s): R06.09 - Other forms of dyspnea Plan prednisone taper start Augmentin Mucinex Continue Advair and Spiriva ANASTASIYA as needed CT chest 10/2024 F/U 3-4 months Orders: Orders CT chest wo IV con 10/24/24 R91.8 - Other nonspecific abnormal finding of lung field Medications: New prednisone PO daily; Take 3 tabs x 3 days, then 2 tabs daily x 3 days, then 1 tab x 3 days to complete. 9 days 18 tabs 0RF amoxicillin-pot clavulanate 875-125 mg 1 tab PO BID 10 days 20 tabs 0RF Coding Level of Care Code Est Pt Level 4 (81784) Diagnoses Pulmonary nodules R91.8 Chronic obstructive pulmonary disease with acute exacerbation J44.1 COPD type: COPD with acute exacerbation Iron deficiency anemia, unspecified iron deficiency anemia type D50.9 Anemia type: iron deficiency Iron deficiency anemia type: unspecified iron deficiency Dyspnea on exertion R06.09 Dyspnea type: dyspnea on exertion Time Spent (min) 16
[2024-07-08 15:51] VITALS: BP 142/80; PULSE 68; O2SAT 98
== END 2024-07-08 16:19 | disposition home or self-care (01) ==
LOC: HO.HPS 15:36
PROVIDERS: PCP Internal Medicine; Visit Provider Hospitalist
DX: R91.8 Other nonspecific abnormal finding of lung field (principal); J44.1 Chronic obstructive pulmonary disease with (acute) exacerbation; D50.9 Iron deficiency anemia, unspecified; R06.09 Other forms of dyspnea
CPT/HCPCS: 99214

== ENCOUNTER → 2024-07-08 15:35 | Outpatient (BNVA) | payer MEDICARE, OTHER, SELFPAY | PROVIDERS: PCP Internal Medicine; Visit Provider Hospitalist | DX: R91.8 Other nonspecific abnormal finding of lung field (principal); J44.1 Chronic obstructive pulmonary disease with (acute) exacerbation; D50.9 Iron deficiency anemia, unspecified; R06.09 Other forms of dyspnea | CPT/HCPCS: 99212 ==

== ENCOUNTER 2024-07-19 10:34 | Outpatient (AMB) | payer MEDICARE, OTHER, SELFPAY ==
[2024-07-19 10:56] VITALS: BP 130/60; PULSE 78; BMI 20.7
--- NOTE | 2024-07-19 10:56 | MHC.OFFVIS ---
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 Overall she has been doing well. Patient denies any cardiac symptoms. Blood pressure is more or less remaining stable. She is drinking plenty of fluids. Denies any lightheadedness, syncope. No orthopnea, PND, leg edema. Recent echocardiogram shows normally functioning bioprosthetic aortic valve. [facility] Medical History Abnormal PET scan of head Anemia Aortic stenosis Tobacco dependence Lymphadenopathy Pulmonary nodules COPD (chronic obstructive pulmonary disease) Surgical History S/P cardiac catheterization Status post transcatheter aortic valve replacement History of partial gastrectomy H/O total knee replacement Family History Other Adopted Social History Alcohol intake: former Year quit: 1979 Patient Tobacco Use Status: Former Tobacco user Tobacco use type: Cigarette Cigarettes Per Day: 8 Years Smoked: 10 +/- Review of Systems Const Denies chills, Denies fatigue, Denies fever(s), Denies frequent falls, Denies weakness, Denies weight gain and Denies weight loss ENT Denies dizziness Card Denies chest pain, Denies leg edema, Denies lightheadedness, Denies palpitations, Denies dyspnea and Denies dyspnea on exertion Resp Denies cough, Denies dyspnea and Denies dyspnea on exertion GI Denies hematochezia Musc Denies abnormal gait, Denies muscle weakness, Denies numbness, Denies radiating pain into limb and Denies tingling Neuro Denies abnormal gait, Denies dizziness, Denies frequent falls, Denies numbness, Denies tingling and Denies weakness Endo Denies fatigue and Denies palpitations Physical Exam Vital Signs: Last Vital Signs Pulse 78 07/19/24 10:56 BP 130/60 07/19/24 10:56 BMI result Body Mass Index 20.7 Const General: cooperative, healthy appearing and comfortable Nutritional Appearance: other (Frail elderly woman) Limitations: wheelchair Neck Neck: Yes normal visual inspection and Yes no JVD Resp Effort & Inspection: normal respiratory effort Auscultation: clear to auscultation bilaterally, no crackles, no rales, no rhonchi, no wheezes and diminished lung sounds Cardio Jugular venous distension: no JVD Rate: regular rate Rhythm: regular rhythm Heart sounds: S1 normal heart sound present, S2 normal heart sound present, no click, no gallops and Murmur heart sound present systolic early Peripheral pulses: Peripheral pulses 2+ throughout Skin General skin exam: no rashes or lesions noted and ecchymosis Extrem Other: Right radial catheterization site with easily palpable radial pulse, right hand assessment normal General: Yes normal to inspection and No no pedal edema Psych Appearance: grossly normal Mental Status: mental status grossly normal Speech and movement: Normal speech and movement present Office Procedures EKG Details: EKG shows normal sinus rhythm with occasional PVCs [id number], Complete Quality Reporting (2019) Adult ([facility] 138/10/29/68) Smoking risk assessment performed?: Yes Patient Tobacco Use Status: Former Tobacco user Assessment & Plan Assessment & Plan (1) Status post transcatheter aortic valve replacement: Comment: 26 mm Evolut bioprosthetic aortic valve replacement, July 2022 Code(s): Z95.2 - Presence of prosthetic heart valve Category: Surgical Plan: Status post transcatheter aortic valve replacement with good function current point time. No new symptoms related to it. Continue aggressive vascular risk factor modification. Blood pressure is currently optimized. Statin therapy should be considered to goal LDL less than 100 mg/dL. Continue low-dose aspirin therapy for life. SBE prophylaxis as per ACC/aha guidelines. (2) Labile blood pressure: Code(s): R09.89 - Other specified symptoms and signs involving the circulatory and respiratory systems Category: Medical Plan: Labile blood pressure which is currently well controlled. This is improved since increasing her fluid intake. Importance of this was discussed. Continue current therapy we diltiazem and valsartan. Target goal blood pressure less than systolic 140. Low-salt diet was discussed encouraged to increase activity level as tolerated. Orthostatic precautions were discussed. Follow up in the clinic in 1 year's time after an echocardiogram. Thank you for allowing me to partake in his care Orders: Orders CA echo transthoracic complete 1 Year Z95.2 - Presence of prosthetic heart valve Coding Level of Care Code Est Pt Level 4 (78231) Complex EM visit Add On G2211 Diagnoses Status post transcatheter aortic valve replacement Z95.2 Labile blood pressure R09.89 CPT Codes EKG - CPT: 86727-[id number], Complete ([id number])
== END 2024-07-19 11:22 | disposition home or self-care (01) ==
PROVIDERS: PCP Internal Medicine; Visit Provider Internal Medicine Cardiovascular Disease
DX: Z95.2 Presence of prosthetic heart valve (principal); R09.89 Other specified symptoms and signs involving the circulatory and respiratory systems
CPT/HCPCS: 93010; 99214; G2211

== ENCOUNTER → 2024-07-19 10:34 | Outpatient (BNVA) | payer MEDICARE, OTHER, SELFPAY | PROVIDERS: PCP Internal Medicine; Visit Provider Internal Medicine Cardiovascular Disease | DX: R09.89 Other specified symptoms and signs involving the circulatory and respiratory systems (principal); Z95.2 Presence of prosthetic heart valve | CPT/HCPCS: 93005; 99212 ==

== ENCOUNTER 2024-10-25 15:24 | Outpatient (REF) | payer MEDICARE, OTHER, SELFPAY ==
--- NOTE | ~2024-10-25 | CT_ITS ---
CLINICAL HISTORY: R91.8 - Other nonspecific abnormal finding of lung field CT chest without contrast Comparison: CT/REG/OH/SR - CT CHEST WO IV CON - 03/16/24 16:53 EDT Findings: Normal heart size. Mild coronary artery calcification. Stent present within the ascending aorta. The visualized thyroid and mediastinum are unremarkable. Interval resolution of the subpleural reticular opacity within the posterior right upper lobe. Interval resolution of the 1.5 cm irregular nodular opacity within the anterior right upper lobe. Interval resolution of the vague reticulonodular peripheral airspace opacity within the right middle lobe. Stable 3 mm subpleural right middle lobe nodule with stability documented since 2022. Interval resolution of the 1.5 cm subpleural left lower lobe nodule. New 5 mm right upper lobe nodule ( series 4, image 38). Two adjacent 3 mm right upper lobe nodules, new since the prior study ( series 4, image 61). Two adjacent 4 mm nodular opacities within the left upper lobe, new since the prior study (series 4, image 72 ). No consolidation or pleural effusion. Marked fecal retention within the visualized colon. Multiple surgical clips within the upper abdomen. No acute fractures. IMPRESSION: 1. There are multiple new pulmonary nodules measuring up to 5 mm in size. Recommend CT follow-up in 12 months. 2. Multiple previously documented pulmonary nodules have resolved since the prior study. A 3 mm subpleural right middle lobe nodule has stability documented since 2022 and is compatible with a benign nodule. This document has been electronically signed by: Dayana Jain MD on 10/26/2024 14:41:33
--- OUTSIDE RECORDS SUMMARY | 2024-10-25 16:15 | XMS_ITS ---
Author Organization [facility] Address [address] [facility] [address] [place] [address] Care Team Providers Care Gyroscope Technician Name Role Phone Davon Hoyos Primary Care Provider LANA Moctezuma Unavailable [phone] Allergies Allergen (clinical drug ingredient) Drug/Non Drug Allergy documented on EMR Reaction Allergy Type Onset Date Status Levaquin muscle aches Drug Allergy Acti ve tramadol Ultram rash Drug Allergy Active codeine Codeine rash Drug Allergy Active REASON FOR VISIT 4-6wk Medications Medication SIG (Take, Route, Frequency, Duration) Notes Start Date End Date Status Vitamin D3 25 MCG (1000 UT) 1 tablet Orally Once a day Not-Taking SEROquel 25 MG 1 tablet at bedtime Orally Once a day Not-Taking Eliquis 5 MG 1 tablet Orally Twic e a day Not-Taking Ventolin HFA 108 (90 Base) MCG/ACT 1 puff as needed Inhalation every 4 hrs Active PreserVision AREDS 2 - as directed Orally Active Valsartan-hydroCHLOROthia zide 80-12.5 MG 1 tablet Orally Once a day Active Venlafaxine HCl ER 150 MG 1 capsule with food Orally Once a day Active dilTIAZem HCl ER 180 MG 1 tablet Orally Once a day Active Gabapentin 400 MG 1 tablet Orally Once a day Active Omeprazole 20 MG 1 capsule 30 minutes before morning meal Orally Once a day Active Spiriva Respimat 2.5 MCG/ACT 2 puffs Inhalation Once a day Active Lipitor 20 MG 1 tablet Orally Once a day Active Advair Diskus 100-50 MCG/ACT 1 puff Inhalation Twice a day Active Problems Problem Type SNOMED Code ICD Code Onset Dates Problem Status W/U Status Risk Notes Problem Pernicious anemia (50904757) Vitamin B12 deficiency anemia due to intrinsic factor deficiency (D51.0) Active confirmed Vital Signs Weight 106.8 lbs 09/30/2024 Height 5ft 1.5in in 09/30/2024 BMI 19.85 kg/m2 09/30/2024 Encounters Encounter Location Date Provider Diagnosis [facility] [address] [facility] [address] [place] [address] 09/30/2024 LANA JAVED Deformity of toe of right foot M20.61 ; Pain of toe of right foot M79.674 ; Foot callus L84 and Vitamin B12 deficiency anemia due to intrinsic factor deficiency D51.0 Assessments Encounter Date Diagnosis (ICD Code) Assessment Notes Treatment Notes Treatment Clinical Notes Section Notes 09/30/2024 Deformity of toe of right foot (ICD-10 - M20.61) Patient examined and evaluated. Past history reviewed. She has recurrent callus formation to the right 5th toe. She has deformity present and the flexor tenotomy was minimally effective. She would require a bigger bony surgery to correct this or amputation. She does not want to pursue any other surgical intervention at this time. I discussed padding and gel sleeves for protection. I also discussed using wider shoe gear and avoiding any shoes that rub on the toe prominences. I debrided the callus tissue to each toe using a sterile 15 blade. She tolerated this well. I applied gel padding. She will follow back with me as needed. 09/30/2024 Pain of toe of right foot (ICD-10 - M79.674) 09/30/2024 Foot callus (ICD-10 - L84) 09/30/2024 Vitamin B12 deficiency anemia due to intrinsic factor deficiency (ICD-10 - D51.0) Plan Of Treatment Treatment Notes Assessment Notes Deformity of toe of right foot Patient e xamined and evaluated. Past history reviewed. She has recurrent callus formation to the right 5th toe. She has deformity present and the flexor tenotomy was minimally effective. She would require a bigger bony surgery to correct this or amputation. She does not want to pursue any other surgical intervention at this time. I discussed padding and gel sleeves for protection. I also discussed using wider shoe gear and avoiding any shoes that rub on the toe prominences. I debrided the callus tissue to each toe using a sterile 15 blade. She tolerated this well. I applied gel padding. She will follow back with me as needed. Next Appt Details Follow Up: 6 Weeks, Reason: Provider Name:LANA JAVED, 11/03/2024 10:00:00 AM, [address] [facility], [place] [address], [place], [address], Provider Name:LANA JAVED, 12/02/2024 10:00:00 AM, [address] [facility], [place] [address], [place], [address], Progress Notes * Hilary KHANOB:1945 (79 yo F)Acc No.[id number]:09/30/2024 Progress Note Patient:?Kiki KHAN Provider:?Lana Carranza DPEduardo :1945???Age:79 Y???Sex:Female D ate:09/30/2024 Address:[address] [place], [place] [id number] Pcp:Davon Hoyos Subjective: * Chief Complaints: * ???4-6wk * HPI: ???Constitutional:?Ms. Khan presents for a follow up visit. She has recurrent pain to the right 5th toe. She states the pain has been bothersome with direct pressure and shoe gear. She admits she likes to wear dressier shoes and these are what bother the toe. She has not been wearing the padding. She has had some swelling to the toe, but no redness. She denies any other changes in her medications or diagnoses. * Medical History:? * Surgical History:?left TKA 0 09/2010right achilles repair partial gastrectomy for PUD right total knee replacement 10/07/2011: TAVR 07/10/2022left total knee replacement tonsillectomy * Hospitalization/Major Diagno stic Procedure:?right TKA at [facility] 10/07/2011- 10/11/2011 ED- fall 07/30/2019[facility]- s/p procedural bleed- on plavix 07/13/2022- fall, radius fracture, right 4-7 rib fracture 02/01/2023- fluid retention 02/22/2023vaginal delivery (girl) 1967vaginal delivery (girl) 1968vaginal delivery (boy) 1969 * Family History:?Son(s): open heart surgery, heart disease.?1 son(s) , 2 daughter(s) . .? patient was adopted has no medical back ground. * Social History:?Tobacco: yes, 2 cigarettes a day Alcohol: no Lives with . * Medications:?TakingSpiriva R espimat 2.5 MCG/ACT Aerosol Solution 2 puffs Inhalation Once a day Advair Diskus 100-50 MCG/ACT Aerosol Powder Breath Activated 1 puff Inhalation Twice a day Lipitor 20 MG Tablet 1 tablet Orally Once a day Omeprazole 20 MG Capsule Delayed Release 1 capsule 30 minutes before morning meal Orally Once a day Gabapentin 400 MG Capsule 1 tablet Orally Once a day dilTIAZem HCl ER 180 MG Tablet Extended Release 24 Hour 1 tablet Orally Once a day Venlafaxine HCl ER 150 MG Capsule Extended Release 24 Hour 1 capsule with food Orally Once a day Valsartan-hydroCHLOROthiazide 80-12.5 MG Tablet 1 tablet Orally Once a day PreserVision AREDS 2 - Capsule as directed Orally Ventolin HFA 108 (90 Base) MCG/ACT Aerosol Solution 1 puff as needed Inhalation every 4 hrs Taking Spiriva Respimat 2.5 MCG/ACT Aerosol Solution 2 puffs Inhalation Once a day Taking Advair Diskus 100- 50 MCG/ACT Aerosol Powder Breath Activated 1 puff Inhalation Twice a day Taking Lipitor 20 MG Tablet 1 tablet Orally Once a day Taking Omeprazole 20 MG Capsule Delayed Release 1 capsule 30 minutes before morning meal Orally Once a day Taking Gabapentin 400 MG Capsule 1 tablet Orally Once a day Taking dilTIAZem HCl ER 180 MG Tablet Extended Release 24 Hour 1 tablet Orally Once a day Taking Venlafaxine HCl ER 150 MG Capsule Extended Release 24 Hour 1 capsule with food Orally Once a day Taking Valsartan-hydroCHLOROthiazide 80-12.5 MG Tablet 1 tablet Orally Once a day Taking PreserVision AREDS 2 - Capsule as directed Orally Taking Ventolin HFA 108 (90 Base) MCG/ACT Aerosol Solution 1 puff as needed Inhalation every 4 hrs Not- TakingEliquis 5 MG Tablet 1 tablet Orally Twice a day SEROquel 25 MG Tablet 1 tablet at bedtime Orally Once a day Vitamin D3 25 MCG (1000 UT) Tablet Chewable 1 tablet Orally Once a day Medication List reviewed and reconciled with the patientNot-Taking Eliquis 5 MG Tablet 1 tablet Orally Twice a day Not-Taking SEROquel 25 MG Tablet 1 tablet at bedtime Orally Once a day Not-Taking Vitamin D3 25 MCG (1000 UT) Tablet Chewable 1 tablet Orally Once a day Medication List reviewed and reconciled with the patient * Allergies:?Codeine: rashUltr am: rashLevaquin: muscle achesno[Allergies Verified] Objective: * Vitals:?Wt: 106.8 lbs, Ht: 5 ft 1.5in, BMI: 19.85 Index, Ht-cm: 156.21, Wt-k.44 kg. * Examination: ???General Examination: ???Patient alert and oriented. She is ambulating in slip on sneakers. Her right pedal pulses are palpable. She can feel light touch and wiggle all the toes on the right. She has significant dermal atrophy of her lower extremities with varicosities. No hair growth noted. There is a callus to the dorsal lateral aspect of the right 5th PIPJ. Minimally tender and no underlying wound. 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 Assessment: * Assessment: 1.?Deformity of toe of right foot - M20.61 (Primary)???2.?Pain of toe of right foot - M79.674???3.?Foot callus - L84???4.?Vitamin B12 deficiency anemia due to intrinsic factor deficiency - D51.0??? Plan: * Treatment: * Procedure Codes:?84353 TRIM SKIN LESION * Follow Up:?6 Weeks * Billing Information: * Visit Code:? * Procedure Codes:? 89071 TRIM SKIN LESION. * Sign off status: Completed true * Provider:?Lana Carranza DPEduardo Date:?09/30 Generated for Laurita winn/Miles/Sujatha on:?10/25/2024 04:15 PM EST History and Physical Notes * Examination Category Sub-Category Detail Notes Category Not es General Examination Patient alert and oriented. She is ambulating in slip on sneakers. Her right pedal pulses are palpable. She can feel light touch and wiggle all the toes on the right. She has significant dermal atrophy of her lower extremities with varicosities. No hair growth noted. There is a callus to the dorsal lateral aspect of the right 5th PIPJ. Minimally tender and no underlying wound. 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
--- OUTSIDE RECORDS SUMMARY | 2024-10-25 16:15 | XMS_ITS ---
Author Organization [facility] Address [address] [facility] [address] [place] [address] Care Team Providers Care Shank Stapler Name Role Phone Davon Hoyos Primary Care Provider LANA Moctezuma Unavailable [phone] Allergies Allergen (clinical drug ingredient) Drug/Non Drug Allergy documented on EMR Reaction Allergy Type Onset Date Status Levaquin muscle aches Drug Allergy Acti ve tramadol Ultram rash Drug Allergy Active codeine Codeine rash Drug Allergy Active REASON FOR VISIT Rt foot pinky toe callus Medications Medication SIG (Take, Route, Frequency, Duration) Notes Start Date End Date Status Omeprazole 20 MG 1 capsule 30 minutes before morning meal Orally Once a day Active Lipitor 20 MG 1 tablet Orally Once a day Active Gabapentin 400 MG 1 tablet Orally Once a day Active Advair Diskus 100-50 MCG/ACT 1 puff Inhalation Twice a day Active Spiriva Respimat 2.5 MCG/ACT 2 puffs Inhalation Once a day Active PreserVision AREDS 2 - as directed Orally Active Eliquis 5 MG 1 tablet Orally Twic e a day Not-Taking Ventolin HFA 108 (90 Base) MCG/ACT 1 puff as needed Inhalation every 4 hrs Active Vitamin D3 25 MCG (1000 UT) 1 tablet Orally Once a day Not-Taking SEROquel 25 MG 1 tablet at bedtime Orally Once a day Not-Taking dilTIAZem HCl ER 180 MG 1 tablet Orally Once a day Active Venlafaxine HCl ER 150 MG 1 capsule with food Orally Once a day Active Valsartan-hydroCHLOROthia zide 80-12.5 MG 1 tablet Orally Once a day Active Vital Signs Weight 105.7 lbs 07/28/2024 Height 5ft 1.5in in 07/28/2024 BMI 19.65 kg/m2 07/28/2024 Heart Rate 81 /min 07/28/2024 Temperature 97.1 degrees Fahrenheit 07/28/20 Respiratory Rate 16 /min 07/28/2024 Encounters Encounter Location Date Provider Diagnosis [facility] [address] [facility] [address] [place] [address] 07/28/2024 LANA JAVED Deformity of toe of right foot M20.61 ; Pain of toe of right foot M79.674 and Foot callus L84 Assessments Encounter Date Diagnosis (ICD Code) Assessment Notes Treatment Notes Treatment Clinical Notes Section Notes 07/28/2024 Deformity of toe of right foot (ICD-10 [...] will follow back with me as needed. 07/28/2024 Pain of toe of right foot (ICD-10 - M79.674) 07/28/2024 Foot callus (ICD-10 - L84) Plan Of Treatment Treatment Notes Assessment Notes [...] with me as needed. Next Appt Details Provider Name:LANA JAVED, 11/03/2024 10:00:00 AM, [address] [facility], [facility] [address], [place], [address], Provider Name:LANA JAVED, 12/02/2024 10:00:00 AM, [address] [facility], [facility] [address], [place], [address], Progress Notes * Hilary KHANOB:1945 (78 yo F)Acc No.[id number]:07/28/2024 Progress Note Patient:?Kiki KHAN Provider:?Lana BeckDuy DPM :1945???Age:78 Y???Sex:Female D ate:07/28/2024 Address:[address] [place], [place] [id number] Pcp:Davon Hoyos Subjective: * Chief Complaints: * ???Rt foot pinky toe callus * HPI: ???Constitutional:? Ms. Khan presents for a follow up visit. She has recurrent pain to the right 5th toe. She states the pain has been mild and seems to be associated with some shoes she wears. She admits she likes to wear dressier shoes and these are what bother the toe. In her sneakers she has no issues. She denies swelling or redness. Just build up of the callus tissue to the toe. She has not been using the gel toe sleeves. * ROS:?General/Constitutional:?Denies?Chills.?Denies?Fatigue.?Denies?Fever.?Denies?Headache.?Endocrine:?Denies?Excessive sweating.?Denies?Excessive thirst.?Denies?Frequent urination.?Respiratory:?Denies?Cough.?Denies?Shortness of breath,?denies.?Denies?Wheezing.?Cardiovascular:?Denies?Chest pain.?Denies?Claudication.?Denies?Cyanosis.?Gastrointestinal:?Denies?Abdominal pain.?Denies?Constipation.?Denies?Diarrhea.?Musculoskeletal:?Patient complaining of?pain to the right 5th toe.?.?Admits?Arthritis/Arthralgia.?Denies?History of Gout.?Denies?Leg cramps.?Denies?Limping gait.? * Medical History:? * Surgical History:?left TKA 0 09/2010right achilles repair partial gastrectomy for PUD right total knee replacement 10/07/2011: TAVR 07/10/2022left total knee replacement tonsillectomy * Hospitalization/Major Diagno stic Procedure:?right TKA at [facility] 10/07/2011- 10/11/2011 ED- fall 07/30/2019[facility]- s/p procedural bleed- on plavix 07/13/2022- fall, [...] rashLevaquin: muscle achesno[Allergies Verified] Objective: * Vitals:?Wt: 105.7 lbs, Ht: 5 ft 1.5in, BMI: 19.65 Index, HR: 81 /min, Temp: 97.1 F, RR: 16 /min, Ht-cm: 156.21, Wt-k.94 kg. * Examination: ???General Examination: ???Patient alert and oriented. She is ambulating in slip on sneakers. Her right pedal pulses are palpable. She can feel light touch and wiggle all the toes on the right. No edema or discoloration to the right or left lower extremities. She does have dermal atrophy of both lower legs and feet. There is a callus to the dorsal lateral aspect of the right 5th PIPJ. Minimally tender and no underlying wound. 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 Assessment: * Assessment: 1.?Deformity of toe of right foot - M20.61 (Primary)?2.?Pain of toe of right foot - M79.674?3.?Foot callus - L84? Plan: * Treatment: * Procedure Codes:? * Billing Information: * Visit Code:? 89027 Office Visit, Est Pt., Level 3. * Procedure Codes:? * Sign off status: Completed true * Provider:?Lana Carranza DPM Date:?07/28 Generated for Laurita winn/Miles/Sujatha on:?10/25/2024 04:15 PM EST History and Physical Notes * Examination Category Sub-Category Detail Notes Category Not es General Examination Patient alert and oriented. She is ambulating in slip on sneakers. Her right pedal pulses are palpable. She can feel light touch and wiggle all the toes on the right. No edema or discoloration to the right or left lower extremities. She does have dermal atrophy of both lower legs and feet. There is a callus to the dorsal lateral aspect of the right 5th PIPJ. Minimally tender and no underlying wound. 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
--- OUTSIDE RECORDS SUMMARY | 2024-10-25 16:15 | XMS_ITS | Encounter Summary ---
Author Organization [facility] Address [address] [facility] [address] [place] [address] Phone Care Team Providers Care Lumber Marker Name Role Phone Davon Hoyos MD Primary Care Provider [phone] Encounter Details Date Type Department Care Team (Late st Contact Info) Description 11/13/2023 Documentation Only [facility] [address] [place] [address] Taryn Mclain [address] [place] [address] Social History Tobacco Use Types Packs/Day Years Used Date Smoking Tobacco: Every Day Cigarettes Comments Unknown Sex and Gender Information Value Date Recorded Sex Assigned at Not on file Legal Sex Female 2:44 PM EDT Gender Identity Not on file Sexual Orientation Not on file documented as of this encounter Plan of Treatment Upcoming Encounters Date Type Department Care Team (Late st Contact Info) Description 11/18/2024 1:30 PM EDT Office Visit [facility] [address] [place] [address] Riot Queen MD [address] [place] [address] [place] [address] documented as of this encounter Visit Diagnoses Not on filedocumented in this encounter Care Teams Lumber Marker Relationship Specialty Start Date End Date Davon Hoyos MD [address] PCP - General Internal Medicine 02/09/23 documented as of this encounter
--- OUTSIDE RECORDS SUMMARY | 2024-10-25 16:15 | XMS_ITS | Encounter Summary ---
Author Organization [facility] Address [address] [facility] [address] [place] [address] Phone Care Team Providers Care Analytical Tech Name Role Phone Davon Hoyos MD Primary Care Provider [phone] Encounter Details Date Type Department Care Team (Late st Contact Info) Description 11/13/2023 Documentation Only [facility] [address] [place] [address] Taryn Mclain [address] [place] [address] Social History Tobacco Use Types [...] Visit [facility] [address] [place] [address] Rito Queen MD [address] [place] [address] [place] [address] documented as of this encounter Visit Diagnoses Not on filedocumented in this encounter Care Teams Analytical Tech Relationship Specialty Start Date End Date Davon Hoyos MD [address] PCP - General Internal Medicine 02/09/23 documented as of this encounter
--- OUTSIDE RECORDS SUMMARY | 2024-10-25 16:15 | XMS_ITS | Encounter Summary ---
Author Organization [facility] Address [address] [facility] [address] [place] [address] Phone Care Team Providers Care Inkjet Operator Name Role Phone Davon Hoyos MD Primary Care Provider [phone] Encounter Details Date Type Department Care Team (Late st Contact Info) Description 11/13/2023 Documentation Only [facility] [address] [place] [address] Taryn Mclain [address] [place] [address] Social History Tobacco Use Types [...] Visit [facility] [address] [place] [address] Rito Queen MD [address] [place] [address] [place] [address] documented as of this encounter Visit Diagnoses Not on filedocumented in this encounter Care Teams Inkjet Operator Relationship Specialty Start Date End Date Davon Hoyos MD [address] PCP - General Internal Medicine 02/09/23 documented as of this encounter
--- OUTSIDE RECORDS SUMMARY | 2024-10-25 16:15 | XMS_ITS | Encounter Summary ---
Author Organization [facility] Address [address] [facility] [address] [place] [address] Phone Care Team Providers Care Dairy Farm Operator Name Role Phone Davon Hoyos MD Primary Care Provider [phone] Encounter Details Date Type Department Care Team (Late st Contact Info) Description 11/13/2023 Documentation Only [facility] [address] [place] [address] Taryn Mclain [address] [place] [address] Social History Tobacco Use Types [...] Visit [facility] [address] [place] [address] Rito Queen MD [address] [place] [address] [place] [address] documented as of this encounter Visit Diagnoses Not on filedocumented in this encounter Care Teams Dairy Farm Operator Relationship Specialty Start Date End Date Davon Hoyos MD [address] PCP - General Internal Medicine 02/09/23 documented as of this encounter
--- OUTSIDE RECORDS SUMMARY | 2024-10-25 16:15 | XMS_ITS | Patient Health Record ---
Author Organization [facility] Address [address] [facility] [address] [place] [address] Care Team Providers Care Surface Miner Name Role Phone Davon Hoyos Primary Care Provider PAZ Moctezuma Unavailable [phone] Allergies Allergen (clinical drug ingredient) Drug/Non Drug Allergy documented on EMR Reaction Allergy Type Onset Date Status Levaquin muscle aches Drug Allergy Acti ve tramadol Ultram rash Drug Allergy Active codeine Codeine rash Drug Allergy Active Reason For Referral No Information Medications Medication SIG (Take, Route, Frequency, Duration) Notes Start Date End Date Status Vitamin D3 25 MCG (1000 UT) 1 tablet Orally Once a day Not-Taking Spiriva Respimat 2.5 MCG/ACT 2 puffs Inhalation Once a day Active SEROquel 25 MG 1 tablet at bedtime [...] W/U Status Risk Notes Problem Pernicious anemia (88782433) Vitamin B12 deficiency anemia due to intrinsic factor deficiency (D51.0) Active confirmed Problem 91594052 Other hammer toe(s) (acquired), right foot (M20.41) Active confirmed Problem 034225412 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) Active confirmed Vital Signs Heart Rate 81 /min 07/28/2024 Temperature 97.1 degrees Fahrenheit 07/28/2024 Respiratory Rate 16 /min 07/28/2024 Height 5ft 1.5in in 09/30/2024 Weight 106.8 lbs 09/30/2024 BMI 19.85 kg/m2 09/30/2024 Procedures Procedure Date Ordered Date Performed Result Body Sit e Trim skin lesion 02/04/2024 N/A Encounters Encounter Location Date Provider Diagnosis [facility] [address] [address] 02/04/2024 PAZ JAVED 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.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 ; Osteoarthritis of joint of toe of right foot M19.071 ; Pain of fifth toe M79.676 ; Callus of foot L84 and Pernicious anemia D51.0 [facility] [address] [address] 03/24/2024 PAZ JAVED 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.5X1 and Other hammer toe(s) (acquired), right foot M20.41 [facility] [address] [address] 03/31/2024 PAZ JAVED 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.5X1 and Other hammer toe(s) (acquired), right foot M20.41 [facility] [address] [address] 04/21/2024 PAZ JAVED 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.5X1 and Other hammer toe(s) (acquired), right foot M20.41 [facility] [address] [address] 06/09/2024 PAZ JAVED Deformity of toe of right foot M20.61 ; Pain of toe of right foot M79.674 and Foot callus L84 [facility] [address] [address] 07/28/2024 PAZ TEGAN Deformity of toe of right foot M20.61 ; Pain of toe of right foot M79.674 and Foot callus L84 [facility] [address] [address] 08/26/2024 PAZ TEGAN Deformity of toe of right foot M20.61 ; Pain of toe of right foot M79.674 and Foot callus L84 [facility] [address] [address] 09/30/2024 PAZ TEGAN Deformity of toe of right foot M20.61 ; Pain of toe of right foot M79.674 ; Foot callus L84 and Vitamin B12 deficiency anemia due to intrinsic factor deficiency D51.0 [facility] [address] [address] 01/19/2024 PAZ TEGAN [facility] [address] [address] 02/19/2024 PAZ JAVED Assessments Encounter Date Diagnosis (ICD Code) Assessment Notes Treatment Notes Treatment Clinical Notes Section Notes 06/09/2024 Deformity of toe of right foot (ICD-10 - M20.61) Patient examined and evaluated. Past history reviewed. She has recurrent callus formation to the right 5th toe and to the tip of the right 2nd toe. She has deformity present and the flexor tenotomy was minimally effective. She would require a bigger bony surgery to correct these or amputation. She does not want to pursue this as this time. I discussed padding and gel sleeves for protection. I also discussed using wider shoe gear and avoiding any shoes that rub on the toe prominences. I debrided the callus tissue to each toe using a sterile 15 blade. She tolerated this well. I applied padding. She will follow back with me as needed. 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 Time was 45 minutes spent in review of all these facets including face to face discussion with the patient regarding my findings and in discussion of a current and future treatment plan. Three weightbearing radiographs of the right foot were taken in the office and reviewed with the patient and her . Patient has a painful callus lesion to the dorsal aspect of the right 5th proximal interphalangeal joint. Her exam reveals an adductovarus deformity of the right 5th toe with hypertrophy to the right 5th PIPJ. Radiographs show synphalangealism of the right 5th DIPJ with a narrow sclerotic PIPJ. There is also a small erosion present to the lateral aspect of the right 5th proximal phalanx head. There is also severe degenerative changes to the 1st metatarsal phalangeal joint with exuberant amount of osteophytes to the medial, lateral, and dorsal aspect of the joint. There are also small calcific changes present at the plantar calcaneus and in the Achilles region at the posterior ankle. I discussed her deformity in detail with her and how this creates pressure in shoe gear causing the callus to form. I discussed how paring down the callus is a temporary solution. It will always come back if there is pressure on the toe. I did discuss the option of toe padding to try to protect the skin and wide shoe gear. I spent time discussing surgery to reduce some of the toe deformity. I discussed that I would only recommend doing MIS soft tissue and bone procedures to the toe. This can be performed through a small poke incision under local anesthetic. We discussed about 2 weeks of healing time with some residual swelling. This would only be entertained if she finds that the padding is not helpful and the toe is still causing significant pain. I did debride the callus lesion to the right 5th toe with a sterile 15 blade down to healthy epithelial tissue. She tolerated this well. I applied a gel toe sleeve and gave her extras to use. I advised she continue to wear wide shoe gear. She does have multiple co morbidities along with significant toenail and fingernail changes. This is all suspicious for an underlying connective tissue disease like systemic sclerosis. I also think that she may also have a cystal arthropathy based on the radiograph findings of the right 5th and 1st. I have seen these types of changes with CPPD. With her elevated alk phos there is always question of possible bone vs liver disease and risk of elevated serum calcium. Can also see elevated alk phos, esr, and lfts in sarcoidosis as well. All of which can contribute to degenerative changes, crystal arthropathy, and deformity. She will try the gel padding for now and will think about surgery if the toe is still bothersome for her. I encouraged her to call if she has any additional questions or concerns. 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 She is 4 weeks s/p right 5th toe flexor tenotomy to try to reduce deformity and callus formation. Her incision has healed nicely. Unfortunately there has been recurrent callus build up and there is still residual deformity. She understood this was a risk factor. She does not want to pursue any further surgical intervention. We can maintain the callus tissue by debridement so that it decreases pain for her every so often. She can also continue to wear the gel toe sleeves as well. She will follow back as needed for debridements. I encouraged her to call with any questions or concerns. 03/31/2024 Other hammer toe(s) (acquired), right foot (ICD-10 - M20.41) Patient examined and evaluated. She is 1 week s/p right 5th toe flexor tenotomy to try to reduce deformity and callus formation. Her incision has healed nicely. She has minimal pain. The toe has some mild edema. I did stress that this is common and could fluctuate for a couple of months. She no longer needs to keep a bandage over the toe. I encouraged them to continue to use the gel toe sleeves if needed. I will see her back in 3-4 weeks to re-evaluate. I encouraged the patient and to call if there are any questions or concerns. 02/04/2024 Pain of fifth toe (ICD-10 - M79.676) 08/26/2024 Foot callus (ICD-10 - L84) 07/28/2024 Foot callus (ICD-10 - L84) 03/24/2024 Other hammer toe(s) (acquired), right foot (ICD-10 - M20.41) 06/09/2024 Foot callus (ICD-10 - L84) 02/04/2024 Callus of foot (ICD-10 - L84) 09/30/2024 Vitamin B12 deficiency anemia due to intrinsic factor deficiency (ICD-10 - D51.0) 02/04/2024 Pernicious anemia (ICD-10 - D51.0) Plan Of Treatment Pending Test Test Name Order Date X ray : Foot, right 3v 02/04/2024 Trim skin lesion 02/04/2024 Next Appt Details Provider Name:PAZ LANDISALLEY, 11/03/2024 10:00:00 AM, [address], [address], Provider Name:PAZ JAVED, 12/02/2024 10:00:00 AM, [address] [address], [place], [address], Insurance Providers Payer Name Payer Address Payer Phone Subscriber Number Group Number Insured Name Patient Relationship to Insured Coverage Start Date Coverage End Date Medicare of [place] [address] [place] [phone] [id number] Kiki Walton Self - patient is the insured [address] Services and Insurance [address] [phone] [id number] Kiki Blue Self - patient is the insured Medical (General) History Medical History History ICD Code high cholesterol hypertension pneumonia Centrilobar emphysema PUD- gastric ulcer osteoporosis < 1cm adrenal adenoma anemia depression anxiety fibrocystic breast disease mild carotid stenosis pericardial cyst duodenitis internal hemorrhoids COPD Pancreatic cyst legally blind rib fracture (4 ribs) due to fall thyroid nodule severe aortic stenosis weight loss pancreatic duct dilated occlusive thrombus ?? 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) pulmonary nodule gastroesophageal reflux disease (GERD) vitamin B12 deficiency anemia due to int rinsic factor deficiency COVID vaccinated X 3 ([employer]) Elevated alkaline phosphatase level Surgical History Surgery Date(Month/Year) left TKA 09/2010 right achilles repair partial gastrectomy for PUD right total knee replacement 10/07/2011 [facility]: TAVR 07/10/2022 left total knee replacement tonsillectomy Hospitalization History Reason Date(Month/Year) vaginal delivery (boy) 1969 vaginal delivery (girl) 1968 vaginal delivery (girl) 1967 [facility]- fluid retention 02/22/2023 [facility]- fall, radius fracture, right 4-7 ri b fracture 02/01/2023 [facility]- s/p procedural bleed- on plavix 02/2022 [facility] ED- fall 07/30/2019 right TKA at [facility] 10/07/2011- 2
--- OUTSIDE RECORDS SUMMARY | 2024-10-25 16:15 | XMS_ITS | Clinical Summary ---
Author Organization [facility], Address [address] [place] [address] [place] [address] Phone Care Team Providers Care Case Monitor Name Role Phone Davon Hoyos MD Primary Care Provider [phone] Allergies Active Allergy Reactions Criticality Noted Date Comments Codeine 11/13/2023 Levofloxacin 11/13/2023 Tramadol 11/13/2023 Medications albuterol HFA (PROVENTIL HFA;VENTOLIN HFA) 108 (90 Base) MCG/ACT inhaler Inhale 2 puffs every 6 (six) hours if needed for wheezing Active apixaban (ELIQUIS) 5 MG tablet Take 5 mg by mouth in the morning and 5 mg in the evening. Active aspirin (ST BRENT) 81 MG EC tablet Take 81 mg by mouth 1 (one) time each day Active atorvastatin (LIPITOR) 20 MG tablet Take 20 mg by mouth 1 (one) time each day Active VITAMIN D PO Take 1 tablet by mouth 1 (one) time each day Active dilTIAZem XR (DILACOR XR) 180 MG 24 hr capsule Take 180 mg by mouth 1 (one) time each day Active Fluticasone-Curry meterol 100-50 MCG/ACT aerosol powder Inhale 1 puff in the morning and 1 puff in the evening. Active furosemide (LASIX) 20 MG tablet Take 20 mg by mouth 1 (one) time each day Active gabapentin (NEURONTIN) 100 MG capsule Take 100 mg by mouth in the morning and 100 mg in the evening and 100 mg before bedtime. Active valsartan-hydro CHLOROthiazide (DIOVAN-HCT) 80-12.5 MG per tablet Take 1 tablet by mouth 1 (one) time each day Active Multiple Vitamins-Minera ls (PRESERVISION AREDS 2 PO) Take 1 capsule by mouth 1 (one) time each day Active omeprazole OTC (PriLOSEC OTC) 20 MG EC tablet Take 20 mg by mouth 1 (one) time each day Do not crush, chew, or split. Active QUEtiapine (SEROquel) 50 MG tablet Take 150 mg by mouth every night Active tiotropium (SPIRIVA) 18 MCG per inhalation capsule Place 2 puffs into inhaler and inhale 1 (one) time each day Active venlafaxine XR (EFFEXOR-XR) 150 MG 24 hr capsule Take 150 mg by mouth 1 (one) time each day Do not crush or chew. Active Active Problems Problem Noted Date Diagnosed Date Normocytic anemia 11/13/2023 Hyponatremia 11/13/2023 Hyperlipidemia 11/13/2023 Chronic kidney disease, stage 2 (mild) 4 Immunizations Name Administration Dates Next Due Influenza, Unspecified 06/27/2022,2020,06/04/2020,06/13/2019, 7,07/08/2016,06/08/2014 Pfizer SARS-COV-2 08/02/2021,11/14/2020,10/24/19 21 Tdap 01/31/2023 Social History Tobacco Use Types Packs/Day Years Used Date Smoking Tobacco: Every Day Cigarettes Comments Unknown Sex and Gender Information Value Date Recorded Sex Assigned at Not on file Legal Sex Female 2:44 PM EDT Gender Identity Not on file Sexual Orientation Not on file Last Filed Vital Signs Vital Sign Reading Time Taken Comments Blood Pressure 119/57 08/06/2023 3:03 PM EST Pulse 88 08/06/2023 3:03 PM EST Temperature - - Respiratory Rate - - Oxygen Saturation - - Inhaled Oxygen Concentration - - Weight - - Height - - Body Mass Index - - Plan of Treatment Upcoming Encounters Date Type Department Care Team (Late st Contact Info) Description 11/18/2024 1:30 PM EDT Office Visit [facility], [address] [place] [address] Rito Queen MD [address] [place] [address] Health Maintenance Due Date Last Done Comments Pneumococcal Vaccine: 65+ Years (1 of 2 - PCV) 1951 Influenza Vaccine (#1) 2024 2, 06/28/2021, 06/04/2020, Additional history exists Hepatitis B Vaccine Aged Out No longe r eligible based on patient's age to complete this topic Insurance [place] [id number] Care Teams Case Monitor Relationship Specialty Start Date End Date Davon Hoyos MD [address] PCP - General Internal Medicine 02/09/23
--- OUTSIDE RECORDS SUMMARY | 2024-10-25 16:15 | XMS_ITS | Encounter Summary ---
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 [address] documented as of this encounter Visit Diagnoses Not on filedocumented in this encounter Care Teams Painting Trades Worker Relationship Specialty Start Date End Date Davon Hoyos MD [address] PCP - General Internal Medicine 02/09/23 documented as of this encounter
--- OUTSIDE RECORDS SUMMARY | 2024-10-25 16:16 | XMS_ITS ---
Author Organization [facility] Address [address] [facility] [address] [place] [address] Care Team Providers Care Hog Scraper Name Role Phone Davno Hoyos Primary Care Provider LANA Moctezuma Unavailable [phone] Allergies Allergen (clinical drug ingredient) Drug/Non Drug Allergy documented on EMR Reaction Allergy Type Onset Date Status Levaquin muscle aches Drug Allergy Acti ve tramadol Ultram rash Drug Allergy Active codeine Codeine rash Drug Allergy Active REASON FOR VISIT Rt foot pinky toe callus pain Medications Medication SIG (Take, Route, Frequency, Duration) Notes Start Date End Date Status Gabapentin 400 MG 1 tablet Orally Once [...] AREDS 2 - as directed Orally Active Vitamin D3 25 MCG (1000 UT) 1 tablet Orally Once a day Not-Taking SEROquel 25 MG 1 tablet at bedtime Orally Once a day Not-Taking Eliquis 5 MG 1 tablet Orally Twic e a day Not-Taking Ventolin HFA 108 (90 Base) MCG/ACT 1 puff as needed Inhalation every 4 hrs Active dilTIAZem HCl ER 180 MG 1 tablet Orally Once a day Active Valsartan-hydroCHLOROthia zide 80-12.5 MG 1 tablet Orally Once a day Active Venlafaxine HCl ER 150 MG 1 capsule with food Orally Once a day Active Vital Signs Weight 105.8 lbs 08/26/2024 Height 5ft 1.5in in 08/26/2024 BMI 19.66 kg/m2 08/26/2024 Encounters Encounter Location Date Provider Diagnosis [facility] [address] [place] [address] 08/26/2024 LANA LANDISALLEY Deformity of toe of right foot M20.61 ; Pain of toe of right foot M79.674 and Foot callus L84 Assessments Encounter Date Diagnosis (ICD Code) Assessment Notes Treatment Notes Treatment Clinical Notes Section Notes 08/26/2024 Deformity of toe of right foot [...] will follow back with me as needed. 08/26/2024 Pain of toe of right foot (ICD-10 - M79.674) 08/26/2024 Foot callus (ICD-10 - L84) Plan Of [...] as needed. Next Appt Details Follow Up: 3 Months, Reason: Provider Name:LANA JAVED, 11/03/2024 10:00:00 AM, [address] [facility], [address], [place], [address], Provider Name:LANA JAVED, 12/02/2024 10:00:00 AM, [address] [facility], [facility] [address], [place], [address], Progress Notes * Hilary KHANOB:1945 (79 yo F)Acc No.[id number]:08/26/2024 Progress Note Patient:Kiki WATERS Provider:?Lana Carranza DPM :1945???Age:79 Y???Sex:Female D ate:08/26/2024 Address:[address] [place], [place] [address] Pcp:Davon Hoyos Subjective: * Chief Complaints: * ???Rt foot pinky toe callus pain * HPI: ???Constitutional:? Ms. Khan presents for a follow up visit. She has recurrent pain to the right 5th toe. She states the pain has been bothersome with direct pressure and shoe gear. She admits she likes to wear dressier shoes and these are what bother the toe. She has not been wearing the padding as much. In her sneakers she has no issues. She denies swelling or redness. Just build up of the callus tissue to the toe. * ROS:?General/Constitutional:?Denies?Chills.?Denies?Fatigue.?Denies?Fever.?Denies?Headache.?Endocrine:?Denies?Excessive sweating.?Denies?Excessive thirst.?Denies?Frequent urination.?Respiratory:?Denies?Cough.?Denies?Shortness of breath,?denies.?Denies?Wheezing.?Cardiovascular:?Denies?Chest pain.?Denies?Claudication.?Denies?Cyanosis.?Musculoskeletal:?Patient complaining of?pain to the right 5th toe.?.?Admits?Arthritis/Arthralgia.?Denies?History of Gout.?Denies?Leg cramps.?Denies?Limping gait.? * Medical History:? * Surgical History:?left TKA 0 09/2010right achilles repair partial gastrectomy for PUD right total knee replacement 10/07/2011: TAVR 07/10/2022left total knee replacement tonsillectomy * Hospitalization/Major Diagno stic Procedure:[place] [facility]11[place] bleed- on plavix 07/13/2022- fall, [...] rashLevaquin: muscle achesno[Allergies Verified] Objective: * Vitals:?Wt: 105.8 lbs, Ht: 5 ft 1.5in, BMI: 19.66 Index, Ht-cm: 156.21, Wt-k.99 kg. * Examination: ???General Examination: ???Patient alert [...] Plan: * Treatment: * Procedure Codes:? * Follow Up:?3 Months * Billing Information: * Visit Code:? 73963 Office Visit, Est Pt., Level 2. * Procedure Codes:? * Sign off status: Completed true * Provider:Irma Carranza DPM Date:?08/26 Generated for Laurita winn/Miles/Brindaitting on:?10/25/2024 04:15 PM EST History and Physical [...]
== END 2024-10-25 15:25 | disposition home or self-care (01) ==
LOC: HO.CT 15:24
PROVIDERS: PCP Internal Medicine; Visit Provider Hospitalist
DX: R91.8 Other nonspecific abnormal finding of lung field (principal)
CPT/HCPCS: 71250

== ENCOUNTER → 2024-10-25 15:25 | Outpatient (BNV) | payer MEDICARE, OTHER, SELFPAY | PROVIDERS: PCP Internal Medicine; Visit Provider Radiology Diagnostic Radiology | DX: R91.8 Other nonspecific abnormal finding of lung field (principal) | CPT/HCPCS: 71250 ==

== ENCOUNTER 2024-11-24 10:36 | Outpatient (AMB) | payer MEDICARE, OTHER, SELFPAY ==
[2024-11-24 10:50] VITALS: BP 146/78; PULSE 66; O2SAT 97; BMI 21.2
--- NOTE | 2024-11-24 10:50 | A.OFFVIS_ITS ---
Vital Signs 11/24/24 10:50 Height 5 ft 1 in Weight 112 lb 6.972 oz BMI 21.2 BP 146/78 H Blood Pressure Location Rt brachial Position Sitting Pulse 66 Pulse Source Pulse Oximeter Pulse Oximetry (%) 97 Oxygen Delivery Method Room Air Intake Visit Reasons: chest congestion, wheezing Allergies codeine Allergy (Severe, Verified 11/24/24 10:54) Headache levofloxacin [From Levaquin] Allergy (Severe, Verified 11/24/24 10:54) Headache tramadol [From Ultram] Allergy (Severe, Verified 11/24/24 10:54) Rash HPI Comments Details: The patient is a 79-year-old woman with a known history of tobacco dependency, squamous cell skin cancer s/p resection several months ago and COPD. Apparently she has been dealing with thyroid disease and underwent a CT scan of the neck which demonstrated a right upper lobe pulmonary nodule. Therefore, she underwent a dedicated CT scan of the chest documented the findings. Ultimately she underwent a PET scan demonstrating that the right upper lobe nodular density had FDG of 1.4. But in addition to that she was found to have a left axillary lymph node with an FDG activity of 2.2, I right lower low nodular density within FDG of 1.5. More concerning was a left inguinal density with a FDG of 4.8. On further questioning she states that she has some weight loss in addition to night sweats and decreased appetite. The patient also was diagnosed with squamous cell carcinoma her scan status post removal with negative borders per patient's report. 04/17/2021 the patient is here for pulmonary follow-up visit. Overall the patient has been doing well. She still continues to be nervous about undergoing different evaluations. In the meantime we did discuss her CT-guided biopsy of the left enlarged inguinal lymph node that had as high as FDG activity. It demonstrated moderate amount of central are tissue consistent with lymph node. No evidence of malignancy seen. She was also evaluated by ENT with laryngoscopy and did not see any significant abnormalities on the laryngoscopy which is reassuring. The patient also had mild FDG activity in some of the pulmonary nodules and she also had a slight area of consolidation. She was treated with antibiotics. Explained to the patient that smoking by itself can resulting inflammation of the lungs. Will plan to repeat the CT scan of the chest in the coming weeks. In the meantime I did strongly encourage the patient to quit smoking prior to that study in order to see potential improvements if there is inflammation from the smoking. The patient continues to use her respiratory therapy without any issues. At this point will continue her therapies and she has completed the antibiotics. Will plan to follow-up after her next CT scan which will be the end of May. 11/26/2022 the patient is here for a pulmonary follow-up visit. Overall she is doing better. She is status post her aortic valve replacement and she did very well. She had a very brief hospitalization. She is now participating in cardio pulmonary rehabilitation. She is using her inhalers. She does complaint of dyspnea on exertion pvbq-or-ltzidqbu severity also feeling dizzy. We did review her blood work while she was at [facility] back in August and hemoglobin have been 9 and then 9.3. Hemoglobin prior to that it was 10.4. Therefore, explained to the patient that the anemia can result in increasing dyspnea symptoms. Specially with her underlying cardiopulmonary disease. She also underwent pulmonary function studies demonstrating moderate degree of COPD. But has severe diffusion impairment. Explained to her that the fusion impairment may have to do with anemia. Therefore she is going to go for blood work today. I will make sure to send over the blood work to her primary care doctor once available. Will plan to follow-up in 6 months or sooner if she develops any worsening symptoms. In the meantime she is going to continue with current respiratory therapy. 05/27/2023 the patient is here for pulmonary follow-up visit. The patient overall is doing fairly well this time. Since we last spoke the patient had a fall in her backyard and she was taken to [facility] where she was found to have for rib fractures on the right which were displaced complicated by pneumothorax. Does not appear that she had a hemothorax. She had a chest tube placed and she was admitted to the hospital. Subsequently discharged. She is feeling better overall. Did have significant pain in that area. Denies any pleuritic discomfort. She continues her inhalers which appeared to be effective. She rarely uses her rescue inhaler although she ran out and she does need to that get that renewed. In addition to that she is following closely with primary care doctor. Again it was noted that she has significant iron deficiency anemia as noted before. She needs to make sure that that is corrected specially with her underlying respiratory disease back in resulting worsening shortness of breath. The patient did have a CT scan of the chest that we personally reviewed. It is reassuring that the left upper lobe nodular density that she had that was concerning has resolved. A lot of the inflammatory changes she had also have improved. She does have some interstitial changes though and she does have some pleural based disease and some stable pulmonary nodules. In part could be secondary to her fall and injury but otherwise reassuring. On these for now we do not have to have serial CT scans. We can discuss additional CT scans during her next visit in 6 months. 11/18/2023 the patient is here for a pulmonary follow-up visit. The patient continues to lose weight. recently she did follow-up with Hematology and she was diagnosed with MGUS. She is currently being evaluated further. In addition to that she was found to have a cystic lesion on her pancreas. She is going to end the go a endoscopy before that. This is going to be a [facility]. She has had significant weight loss proximally 20 lb in the last few months. She does not have much appetite. Respiratory status she does continue to do well. She has been using her inhalers. She does get short of breath with activity. Ddfc-zn-ivydnslm severity. Although she has been significantly deconditioned and also anemic that is also affecting her dyspnea itself. We did review her last CT scan of the chest that was back in May 2023. The patient had multiple pulmonary nodules. She is concerned with weight loss. due to her critical situation will go ahead and repeat her CT scan in 3 months time. Will have her follow-up after that. She will continue using her respiratory therapy as prescribed. If the patient has any worsening symptoms prior to the next visit she will call for an earlier assessment. 03/25/2024 the patient is here for a pulmonary follow-up visit. The patient has had issues with weight loss still. She has decreased appetite. She was admitted briefly to [facility] after being found dehydrated. She was evaluated and discharged. She continues on respiratory therapy. The dru reaves did have a CT scan of the chest which we personally reviewed together. Has not been officially read although she appears to have a new 1.5 cm pulmonary nodule in the periphery of the left lung. She has other pulmonary nodules bilaterally. At this point with her significant weight loss decreased appetite and this abnormal findings concerning for malignancy will go ahead and order a PET scan. 05/20/2024 the patient is here for pulmonary follow-up visit. The patient still complains of her weight loss issues. Also having shortness of breath with activity mild in severity. She did undergo a PET scan because of the abnormal findings on the CT scan. The FDG activity of the pulmonary nodules appear to be minimal. Likely more inflammatory or infectious process. Still that she did h ave increased FDG activity around the throat area and the question of malignancy did come up I have a concern. Therefore is recommended that she undergo laryngoscopy from ENT. I will refer her urgently to ENT at this time to follow- up with the abnormalities. She also had FDG activity of the esophagus. Likely consistent with esophagitis. She does take a PPI the patient does not have any symptoms at this time. If her symptoms were to worsen then additional medication or GI evaluation will be warranted. For now will continue with respiratory therapy. Will follow-up in 6 months after her repeat CT scan. 07/08/2024 the patient is here for a Sick visit. She has been complaining of worsening cough chest congestion and wheezing. She has been sick now for about a week. Ugsb-xfo-zwcmzot medications are not effective for her. Her cough is significant does not let her sleep. Moderate severity. She did follow-up with ENT. No significant findings based on the abnormal PET scan in that larynx. This is all reassuring. She will continue to get imaging studies to follow-up pulmonary nodules. But in the meantime will go ahead and treated for a COPD exacerbation as she does have significant chest congestion and wheezing. The patient does not like to take prednisone for will give her a lower dose at this time. If she does not feel like her symptoms are getting any better she may need a higher dose and she can always call for that. 11/24/2024 the patient is here for pulmonary follow-up visit. Overall the patient is feeling better. She has actually gained weight. Breathing is at baseline. She did have a repeat CT scan of the chest which was reassuring with the nodular density subsided. Although she has new pulmonary nodules that are up to 5 mm in size. Will follow-up with a CT scan in a year's time for these new nodules. The patient continues respiratory therapy with good effect. She is not taking a prednisone at this time which is reassuring. Overall the patient is doing well so therefore follow-up in 6 months and will reassess her symptoms. Hopefully we can hold off on a CT scan to a year from her last 1. She has not issues before next visit she can always call for an earlier assessment. FORMERLY [facility], [facility] Medical History Abnormal PET scan of head Anemia Aortic stenosis Tobacco dependence Lymphadenopathy Pulmonary nodules COPD (chronic obstructive pulmonary disease) Surgical History S/P cardiac catheterization Status post transcatheter aortic valve replacement History of partial gastrectomy H/O total knee replacement Family History Other Adopted Social History Alcohol intake: former Year quit: 1979 Patient Tobacco Use Status: Former Tobacco user Tobacco use type: Cigarette Cigarettes Per Day: 8 Years Smoked: 10 +/- Review of Systems Const Reports fatigue, Denies night sweats and Reports weight gain Eyes Reports change in vision ENT Denies change in voice, Reports dizziness, Denies lip swelling, Denies mouth pain, Reports nasal congestion, Reports nasal discharge and Denies tongue swelling Card Denies chest pain and Reports dyspnea on exertion Resp Reports cough, Denies hemoptysis, Denies pain with cough, Reports dyspnea on exertion and Reports wheezing GI Denies abdominal pain Musc Reports as per HPI and Reports myalgias Neuro Denies Neuro-related abnormal movements and Reports dizziness Psych Denies no additional complaints Endo Reports fatigue Luis Alberto/Lymph Denies easy bleeding and Denies lymphadenopathy Aller/Immun Denies lip swelling, Denies tongue swelling and Reports wheezing Physical Exam Vital Signs: Last Vital Signs Pulse 66 11/24/24 10:50 BP 146/78 H 11/24/24 10:50 Pulse Ox 97 11/24/24 10:50 Oxygen Delivery Method Room Air 11/24/24 10:50 BMI result Body Mass Index 21.2 Const General: alert Neck Neck: Yes normal visual inspection, Yes full ROM and Yes no lymphadenopathy Chest Chest palpation & inspection: normal inspection of the chest Resp Effort & Inspection: normal respiratory effort and prolonged expiratory phase Auscultation: rhonchi, wheezes and diminished lung sounds Cardio Rate: regular rate Rhythm: regular rhythm Heart sounds: S1 normal heart sound present, S2 normal heart sound present and Murmur heart sound present GI Palpation (GI): Soft to palpation and nontender Auscultation: normal bowel sounds Skin General skin exam: rashes and/or lesions noted Assessment & Plan Assessment & Plan (1) Pulmonary nodules: Code(s): R91.8 - Other nonspecific abnormal finding of lung field Category: Medical (2) COPD (chronic obstructive pulmonary disease): Code(s): J44.9 - Chronic obstructive pulmonary disease, unspecified Category: Medical Qualifiers: COPD type: COPD with acute exacerbation Qualified Code(s): J44.1 - Chronic obstructive pulmonary disease with (acute) exacerbation (3) Anemia: Comment: 10.4->9.0->9.3 (08/28) Code(s): D64.9 - Anemia, unspecified Category: Medical Qualifiers: Anemia type: iron deficiency Iron deficiency anemia type: unspecified iron deficiency Qualified Code(s): D50.9 - Iron deficiency anemia, unspecified (4) Dyspnea: Code(s): R06.00 - Dyspnea, unspecified Category: Medical Qualifiers: Dyspnea type: dyspnea on exertion Qualified Code(s): R06.09 - Other forms of dyspnea Plan CPT with acapella valve Mucinex Continue Advair and Spiriva ANASTASIYA as needed benzonates as needed CT chest 11/2025 F/U 6 months Orders: Orders CT chest wo IV con 1 Year R91.8 - Other nonspecific abnormal finding of lung field Medications: Changed From benzonatate 200 mg PO BID 30 days PRN 30 caps 11RF cough To benzonatate 200 mg PO BID 90 days PRN 180 caps 3RF cough Refilled benzonatate 200 mg PO BID 30 days PRN 30 caps 11RF cough Coding Level of Care Code Est Pt Level 4 (74340) Complex EM visit Add On G2211 Diagnoses Pulmonary nodules R91.8 Chronic obstructive pulmonary disease with acute exacerbation J44.1 COPD type: COPD with acute exacerbation Iron deficiency anemia, unspecified iron deficiency anemia type D50.9 Anemia type: iron deficiency Iron deficiency anemia type: unspecified iron deficiency Dyspnea on exertion R06.09 Dyspnea type: dyspnea on exertion Time Spent (min) 17
--- OUTSIDE RECORDS SUMMARY | 2024-11-24 12:21 | XMS_ITS | Encounter Summary ---
Author Organization [facility], Address [address] [place] [address] Phone Care Team Providers Care Guest Services Attendant Name Role Phone Davon Hoyos MD Primary Care Provider [phone] Encounter Details Date Type Department Care Team (Late st Contact Info) Description 11/13/2023 Documentation Only [facility], [address] [place] [address] Taryn Mclain [address] [place] [phone] Social History Tobacco Use Types Packs/Day Years Used Date Smoking Tobacco: Every Day Cigarettes Comments Unknown Sex and Gender Information Value Date Recorded Sex Assigned at Not on file Legal Sex Female 2:44 PM EDT Gender Identity Not on file Sexual Orientation Not on file documented as of this encounter Plan of Treatment Not on file documented as of this encounter Visit Diagnoses Not on filedocumented in this encounter Care Teams Guest Services Attendant Relationship Specialty Start Date End Date Davon Hoyos MD [address] PCP - General Internal Medicine 02/09/23 documented as of this encounter
--- OUTSIDE RECORDS SUMMARY | 2024-11-24 12:21 | XMS_ITS | Encounter Summary ---
Author Organization [facility], Address [address] [place] [address] Phone Care Team Providers Care Airport Guide Name Role Phone Davon Hoyos MD Primary Care Provider [phone] Encounter Details Date Type Department Care Team (Late st Contact Info) Description 11/13/2023 Documentation Only [facility], [address] [place] [address] Taryn Mclain [address] [place] [phone] Social History Tobacco Use Types Packs/Day [...] on filedocumented in this encounter Care Teams Airport Guide Relationship Specialty Start Date End Date Davon Hoyos MD [address] PCP - General Internal Medicine 02/09/23 documented as of this encounter
--- OUTSIDE RECORDS SUMMARY | 2024-11-24 12:21 | XMS_ITS | Encounter Summary ---
Author Organization [facility], Address [address] [place] [address] Phone Care Team Providers Care Principal Gifts Officer Name Role Phone Davon Hoyos MD Primary Care Provider [phone] Encounter Details Date Type Department Care Team (Late st Contact Info) Description 11/13/2023 Documentation Only [facility], [address] [place] [address] Taryn Mclain [address] [place] [phone] Social History Tobacco Use Types Packs/Day [...] on filedocumented in this encounter Care Teams Principal Gifts Officer Relationship Specialty Start Date End Date Davon Hoyos MD [address] PCP - General Internal Medicine 02/09/23 documented as of this encounter
--- OUTSIDE RECORDS SUMMARY | 2024-11-24 12:21 | XMS_ITS ---
Author Organization [facility] Address [address] [place] [address] Care Team Providers Care Financial Services Education Consultant Name Role Phone Davon Hoyos Primary Care Provider PAZ Moctezuma Unavailable [phone] REASON FOR VISIT balance Encounters Encounter Location Date Provider Diagnosis [facility] [address] [address] 11/21/2024 PAZ JAVED Plan Of Treatment Next Appt Details Provider Name:PAZ JAVED, 12/02/2024 10:00:00 AM, [address] [address], [place], [address], Progress Notes * Hilary KHANOB:1945 (79 yo F)Acc No.[id number]:11/21/2024 Patient:?ERIN Kiki :1945???Age:79 Y???Sex:Female Address:[address] [place] [phone] * true * Date:? Generated for Garyi tatum/Miles/eTransmitting on:?11/24/2024 12:21 PM EDT
--- OUTSIDE RECORDS SUMMARY | 2024-11-24 12:21 | XMS_ITS | Clinical Summary ---
Author Organization [facility], Address [address] [place] [address] [place] [address] Phone Care Team Providers Care Raker Buffing Wheel Name Role Phone Davon Hoyos MD Primary Care Provider [phone] Allergies Active Allergy Reactions Criticality Noted Date [...] Mass Index - - Plan of Treatment Health Maintenance Due Date Last Done Comments Pneumococcal Vaccine: 65+ Years (1 of 2 - PCV) 1951 Influenza Vaccine (#1) 2024 2, 06/28/2021, 06/04/2020, Additional history exists Hepatitis B Vaccine Aged Out No longe r eligible based on patient's age to complete this topic Insurance [place]IC[place] [id number] Care Teams Raker Buffing Wheel Relationship Specialty Start Date End Date Davon Hoyos MD [address] PCP - General Internal Medicine 02/09/23
--- OUTSIDE RECORDS SUMMARY | 2024-11-24 12:21 | XMS_ITS ---
Author Organization [facility] Address [address] [facility] [address] [place] [address] Care Team Providers Care Manager Simulation Name Role Phone Davon Hoyos Primary Care Provider LANA Moctezuma Unavailable [phone] Allergies Allergen (clinical drug ingredient) Drug/Non Drug [...] W/U Status Risk Notes Problem Pernicious anemia (28980436) Vitamin B12 deficiency anemia due to intrinsic factor deficiency (D51.0) Active confirmed Vital Signs Height 5ft 1.5in in 09/30/2024 Weight 106.8 lbs 09/30/2024 BMI 19.85 kg/m2 09/30/2024 Encounters Encounter Location Date Provider Diagnosis [facility] [address] [facility] [address] [place] [address] 09/30/2024 LANA JAVED Deformity of toe of [...] Up: 6 Weeks, Reason: Provider Name:LANA JAVED, 12/02/2024 10:00:00 AM, [address] [address], [place], [address], Progress Notes * Hilary KHANOB:1945 (79 yo F)Acc No.[id number]:09/30/2024 Progress Note Patient:?Kiki KHAN Provider:?Lana Laraey DPM :1945???Age:79 Y???Sex:Female D ate:09/30/2024 Address:[address] [place], [place] [phone] Pcp:Davon Hoyos Subjective: * Chief Complaints: * [...] * Hospitalization/Major Diagno stic Procedure:?right TKA at [facility] 10/07/2011- 10/11/2011 ED- fall 07/30/2019[facility]- s/p procedural bleed- on plavix 07/13/2022- fall, radius fracture, right 4-7 rib fracture 02/01/2023- fluid retention 02/22/2023vaginal delivery (girl) 1968vaginal delivery (girl) 1968vaginal delivery (boy) 1969 * [...] - D51.0??? Plan: * Treatment: * Procedure Codes:?31042 TRIM SKIN LESION * Follow Up:?6 Weeks * Billing Information: * Visit Code:? * Procedure Codes:? 78927 TRIM SKIN LESION. * Sign off status: Completed true * Provider:?Lana Carranza DP Date:?09/30 Generated for Laurita winn/Miles/Bushrasmitting on:?11/24/2024 12:20 PM EDT History and Physical Notes * Examination Category [...]
--- OUTSIDE RECORDS SUMMARY | 2024-11-24 12:21 | XMS_ITS ---
Author Organization [facility] Address [address] [facility] [address] [place] [address] Care Team Providers Care Government Minister Name Role Phone Davon Hoyos Primary Care Provider LANA Moctezuma Unavailable [phone] Allergies Allergen (clinical drug ingredient) Drug/Non Drug Allergy documented on EMR Reaction Allergy Type Onset Date Status Levaquin muscle aches Drug Allergy Acti ve tramadol Ultram rash Drug Allergy Active codeine Codeine rash Drug Allergy Active REASON FOR VISIT 4-6wk Medications Medication SIG (Take, Route, Frequency, Duration) Notes Start Date End Date Status Lipitor 20 MG 1 tablet Orally Once a day Active Omeprazole 20 MG 1 capsule 30 minutes before morning meal Orally Once a day Active Gabapentin 400 MG 1 tablet Orally Once a day Active dilTIAZem HCl ER 180 MG 1 tablet Orally Once a day Active Venlafaxine HCl ER 150 MG 1 capsule with food Orally Once a day Active Spiriva Respimat 2.5 MCG/ACT 2 puffs Inhalation Once a day Active SEROquel 25 MG 1 tablet at bedtime Orally Once a day Not-Taking Advair Diskus 100-50 MCG/ACT 1 puff Inhalation Twice a day Active Vitamin D3 25 MCG (1000 UT) 1 tablet Orally Once a day Not-Taking Eliquis 5 MG 1 tablet Orally Twic e a day Not-Taking Valsartan-hydroCHLOROthia zide 80-12.5 MG 1 tablet Orally Once a day Active PreserVision AREDS 2 - as directed Orally Active Ventolin HFA 108 (90 Base) MCG/ACT 1 puff as needed Inhalation every 4 hrs Active Vital Signs Height 5ft 1.5in in 11/03/2024 Weight 107.8 lbs 11/03/2024 BMI 20.04 kg/m2 11/03/2024 Encounters Encounter Location Date Provider Diagnosis [facility] [address] [facility] [address] [place] [address] 11/03/2024 LANA JAVED Deformity of toe of right foot M20.61 ; Pain of toe of right foot M79.674 ; Foot callus L84 and Vitamin B12 deficiency anemia due to intrinsic factor deficiency D51.0 Assessments Encounter Date Diagnosis (ICD Code) Assessment Notes Treatment Notes Treatment Clinical Notes Section Notes 11/03/2024 Deformity of toe of right foot (ICD-10 [...] She tolerated this well. I applied gel taping. She will follow back with me as needed. 11/03/2024 Pain of toe of right foot (ICD-10 - M79.674) 11/03/2024 Foot callus (ICD-10 - L84) 11/03/2024 Vitamin B12 deficiency anemia due to intrinsic [...] She tolerated this well. I applied gel taping. She will follow back with me as needed. Next Appt Details Provider Name:LANA JAVED, 12/02/2024 10:00:00 AM, [address] [facility], [facility] [address], [place], [address], Progress Notes * Taya KHANeDOB:1945 (79 yo F)Acc No.[id number]:11/03/2024 Progress Note Patient:Kiki WATERS Provider:Irma Carranza DPM :1945???Age:79 Y???Sex:Female D ate:11/03/2024 Address:[address] [place], [place] [address] Pcp:Davon Hoyos Subjective: * Chief Complaints: * ???4-6wk * HPI: ???Constitutional:?Ms. Khan presents for a follow up visit. She has recurrent pain to the right 5th toe. She states the pain has been bothersome with direct pressure and shoe gear.? She has not been wearing the padding.No swelling or redness of the toe lately. She states it is just painful with direct pressure. * ROS:?General/Constitutional:?Denies?Chills.?Denies?Fatigue.?Denies?Fever.?Denies?Headache.?Endocrine:?Denies?Excessive sweating.?Denies?Excessive thirst.?Denies?Frequent urination.?Respiratory:?Denies?Cough.?Denies?Shortness of breath,?denies.?Denies?Wheezing.?Cardiovascular:?Denies?Chest pain.?Denies?Claudication.?Denies?Cyanosis.?Musculoskeletal:?Patient complaining of?pain to the right 5th toe.?.?Admits?Arthritis/Arthralgia.?Denies?History of Gout.?Denies?Leg cramps.?Denies?Limping gait.? * Medical History:? * Surgical History:?left TKA 0 09/2010right achilles repair partial gastrectomy for PUD right total knee replacement [facility]07/[facility]: TAVR 07/10/2022left total knee replacement tonsillectomy * Hospitalization/Major Diagno stic Procedure:?right TKA at [facility] 10/07/2011- 10/11/2011 ED- fall 07/30/2019[facility]- s/p procedural bleed- on plavix 07/13/2022- fall, [...] and reconciled with the patient * Allergies:?Codeine: Rinar am: rashLevaquin: muscle achesno[Allergies Verified] Objective: * Vitals:?Wt: 107.8 lbs, Ht: 5 ft 1.5in, BMI: 20.04 Index, Ht-cm: 156.21, Wt-k.9 kg. * Examination: ???General Examination: ???Patient alert [...] - D51.0??? Plan: * Treatment: * Procedure Codes:? * Billing Information: * Visit Code:? 95100 Office Visit, Est Pt., Level 3. * Procedure Codes:? * Sign off status: Completed true * Provider:?Lana Carranza DPM Date:?11/03 Generated for Laurita winn/Miles/Sujatha on:?11/24/2024 12:21 PM EDT History and Physical Notes * [...]
--- OUTSIDE RECORDS SUMMARY | 2024-11-24 12:21 | XMS_ITS | Encounter Summary ---
Author Organization [facility], Address [address] [place] [address] Phone Care Team Providers Care Bindery Assistant Name Role Phone Davon Hoyos MD Primary Care Provider [phone] Encounter Details Date Type Department Care Team (Late st Contact Info) Description 11/13/2023 Documentation Only [facility], [address] [place] [address] Taryn Mclain [address] [place] [phone] Social History Tobacco Use Types Packs/Day [...] on filedocumented in this encounter Care Teams Bindery Assistant Relationship Specialty Start Date End Date Davon Hoyos MD [address] PCP - General Internal Medicine 02/09/23 documented as of this encounter
--- OUTSIDE RECORDS SUMMARY | 2024-11-24 12:21 | XMS_ITS | Encounter Summary ---
Author Organization [facility], Address [address] [place] [address] Phone Care Team Providers Care Wood Box Maker Name Role Phone Davon Hoyos MD Primary Care Provider [phone] Encounter Details Date Type Department Care Team (Late st Contact Info) Description 11/13/2023 Documentation Only [facility], [address] [place] [address] Taryn Mclain [address] [place] [phone] Social History Tobacco Use Types Packs/Day [...] on filedocumented in this encounter Care Teams Wood Box Maker Relationship Specialty Start Date End Date Davon Hoyos MD [address] PCP - General Internal Medicine 02/09/23 documented as of this encounter
== END 2024-11-24 11:15 | disposition home or self-care (01) ==
LOC: HO.HPS 10:37
PROVIDERS: PCP Internal Medicine; Visit Provider Hospitalist
DX: R91.8 Other nonspecific abnormal finding of lung field (principal); J44.1 Chronic obstructive pulmonary disease with (acute) exacerbation; D50.9 Iron deficiency anemia, unspecified; R06.09 Other forms of dyspnea
CPT/HCPCS: 99214; G2211

== ENCOUNTER → 2024-11-24 10:36 | Outpatient (BNVA) | payer MEDICARE, OTHER, SELFPAY | PROVIDERS: PCP Internal Medicine; Visit Provider Hospitalist | DX: J44.1 Chronic obstructive pulmonary disease with (acute) exacerbation (principal); R91.8 Other nonspecific abnormal finding of lung field; D50.9 Iron deficiency anemia, unspecified; R06.09 Other forms of dyspnea; Z87.891 Personal history of nicotine dependence | CPT/HCPCS: 99212 ==

== ENCOUNTER 2025-05-29 10:53 | Outpatient (AMB) | payer MEDICARE, OTHER, SELFPAY ==
--- OUTSIDE RECORDS SUMMARY | 2025-01-02 07:15 | XMS_ITS ---
Author Organization [facility] Address [address] [facility] [address] [place] [address] Care Team Providers Care Liquified Natural Gas Technician Name Role Phone Davon Hoyos Primary Care Provider PAZ Moctezuma Unavailable [phone] Allergies Allergen (clinical drug ingredient) Drug/Non Drug [...] 01/02/2025 Encounters Encounter Location Date Provider Diagnosis [facility] [address] [facility] [address] [place] [address] 01/02/2025 PAZ JAVED Deformity of toe of [...] needed. Next Appt Details Provider Name:PAZ JAVED, 06/05/2025 10:00:00 AM, [address] [facility], [place] [address], [place], [address], Provider Name:PAZ JAVED, 07/03/2025 10:00:00 AM, [facility] [address] [facility], [place] [address], [place], [address], Provider Name:PAZ JAVED, 07/31/2025 10:00:00 AM, [facility] [address] [facility], [place] [address], [place], [address], Provider Name:PAZ JAVED, 08/28/2025 10:00:00 AM, [facility] [address] [facility], [place] [address], [place], [address], Progress Notes * ERIN HilaryOB:1945 (79 yo F)Acc No.[id number]:01/02/2025 Progress Note Patient: Kiki CONTRERAS Provider: Ct Carranza DPM :1945 A ge:79 Y S ex:Female Date:01/02/2025 Address:[address] [place] [address] Pcp:Davon Hoyos Subjective: * Chief Complaints: * [...] intrinsic factor deficiency, COVID vaccinated X 3 ([employer]), Elevated alkaline phosphatase level. * Surgical History: l eft TKA 09/2010, right achilles repair , partial gastrectomy for PUD , right total knee replacement 10/07/2011, [facility]: TAVR 07/10/2022, left total knee replacement , tonsillectomy . * Hospitalization/Major Diagno stic Procedure: r ight TKA at [facility] 10/07/2011-10/11/2011, [facility] ED- fall 07/30/2019, [facility]- s/p procedural bleed- on plavix 07/13/2022, [facility]- fall, radius fracture, right 4-7 rib fracture 02/01/2023, [facility]- fluid retention 02/22/2023, vaginal delivery (girl) 1967, [...] Electronic signature of WILBERT JAVED D.P.M. on 05/29/2025 at 01:31 PM EDT Sign off status: Pending * Provider: Ct Carranza DPM Date: 0 01/02/2025 Generated for Laurita winn/Miles/Sujatha on: 0 05/29/2025 01:31 PM EDT
--- OUTSIDE RECORDS SUMMARY | 2025-03-16 05:45 | XMS_ITS ---
Author Organization [facility] Address [address] [address] Care Team Providers Care Lamp Shade Assembler Name Role Phone Davon Hoyos Primary Care Provider PAZ Moctezuma Unavailable [phone] REASON FOR VISIT right 5th toe callus fu Encounters Encounter Location Date Provider Diagnosis [facility] [address] [address] 03/16/2025 PAZ JAVED Plan Of Treatment Next Appt Details Provider Name:PAZ JAVED, 06/05/2025 10:00:00 AM, [address] [place] [address], [place], [address], Provider Name:PAZ JAVED, 07/03/2025 10:00:00 AM, [address], [address], Provider Name:PAZ JAVED, 07/31/2025 10:00:00 AM, [facility] [address], [address], Provider Name:PAZ JAVED, 08/28/2025 10:00:00 AM, [address], [address], Progress Notes * Hilary KHANOB:1945 (79 yo F)Acc No.[id number]:03/16/2025 Progress Note Patient: Kristen THAKKARKiki METZ Provider: Ct Carranza DPEduardo :1945 A ge:79 Y S ex:Female Date:03/16/2025 Address:[address] [place] [phone] Pcp:Davon Hoyos Subjective: * Chief Complaints: * 1 . Right 5th toe callus fu. * Medical History: Objective: * Vitals: Assessment: Plan: * Treatment: * Billing Information: * Visit Code: * Procedure Codes: * Electronic signature of Shawn PALACIOSPLeon on 05/29/2025 at 01:31 PM EDT Sign off status: Pending * Provider: Ct Carranza DPM Date: 0 03/16/2025 Generated for Laurita winn/Miles/Brindaitting on: 05/29/2025 01:31 PM EDT
[2025-05-29 10:55] VITALS: BP 178/78; PULSE 74; O2SAT 95
--- NOTE | 2025-05-29 10:55 | A.OFFVIS_ITS ---
Vital Signs 05/29/25 10:55 Height 5 ft 1 in Weight 105 lb 13.15 oz BMI 20.0 BP 178/78 H Blood Pressure Location Lt brachial Position Sitting Pulse 74 Pulse Source Pulse Oximeter Pulse Oximetry (%) 95 Oxygen Delivery Method Room Air Intake Visit Reasons: chest congestion, wheezing Group Sales Coordinator Required: No Accompanied by: Self / Same As Patient Allergies codeine Allergy (Severe, Verified 05/29/25 10:58) Headache levofloxacin (From Levaquin) Allergy (Severe, Verified 05/29/25 10:58) Headache tramadol (From Ultram) Allergy (Severe, Verified 05/29/25 10:58) Rash HPI Comments Details: The patient is a 79-year-old woman with a known history of tobacco dependency, squamous cell skin cancer s/p resection several months ago and COPD. Apparently she has been dealing with thyroid disease and underwent a CT scan of the neck which demonstrated a right upper lobe pulmonary nodule. Therefore, she underwent a dedicated CT scan of the chest documented the findings. Ultimately she underwent a PET scan demonstrating that the right upper lobe nodular density had FDG of 1.4. But in addition to that she was found to have a left axillary lymph node with an FDG activity of 2.2, I right lower low nodular density within FDG of 1.5. More concerning was a left inguinal density with a FDG of 4.8. On further questioning she states that she has some weight loss in addition to night sweats and decreased appetite. The patient also was diagnosed with squamous cell carcinoma her scan status post removal with negative borders per patient's report. 04/17/2021 the patient is here for pulmonary follow-up visit. Overall the patient has been doing well. She still continues to be nervous about undergoing different evaluations. In the meantime we did discuss her CT-guided biopsy of the left enlarged inguinal lymph node that had as high as FDG activity. It demonstrated moderate amount of central are tissue consistent with lymph node. No evidence of malignancy seen. She was also evaluated by ENT with laryngoscopy and did not see any significant abnormalities on the laryngoscopy which is reassuring. The patient also had mild FDG activity in some of the pulmonary nodules and she also had a slight area of consolidation. She was treated with antibiotics. Explained to the patient that smoking by itself can resulting inflammation of the lungs. Will plan to repeat the CT scan of the chest in the coming weeks. In the meantime I did strongly encourage the patient to quit smoking prior to that study in order to see potential improvements if there is inflammation from the smoking. The patient continues to use her respiratory therapy without any issues. At this point will continue her therapies and she has completed the antibiotics. Will plan to follow-up after her next CT scan which will be the end of May. 11/26/2022 the patient is here for a pulmonary follow-up visit. Overall she is doing better. She is status post her aortic valve replacement and she did very well. She had a very brief hospitalization. She is now participating in cardio pulmonary rehabilitation. She is using her inhalers. She does complaint of dyspnea on exertion meio-yh-nivnqnjg severity also feeling dizzy. We did review her blood work while she was at [facility] back in August and hemoglobin have been 9 and then 9.3. Hemoglobin prior to that it was 10.4. Therefore, explained to the patient that the anemia can result in increasing dyspnea symptoms. Specially with her underlying cardiopulmonary disease. She also underwent pulmonary function studies demonstrating moderate degree of COPD. But has severe diffusion impairment. Explained to her that the fusion impairment may have to do with anemia. Therefore she is going to go for blood work today. I will make sure to send over the blood work to her primary care doctor once available. Will plan to follow-up in 6 months or sooner if she develops any worsening symptoms. In the meantime she is going to continue with current respiratory therapy. 05/27/2023 the patient is here for pulmonary follow-up visit. The patient overall is doing fairly well this time. Since we last spoke the patient had a fall in her backyard and she was taken to [facility] where she was found to have for rib fractures on the right which were displaced complicated by pneumothorax. Does not appear that she had a hemothorax. She had a chest tube placed and she was admitted to the hospital. Subsequently discharged. She is feeling better overall. Did have significant pain in that area. Denies any pleuritic discomfort. She continues her inhalers which appeared to be effective. She rarely uses her rescue inhaler although she ran out and she does need to that get that renewed. In addition to that she is following closely with primary care doctor. Again it was noted that she has significant iron deficiency anemia as noted before. She needs to make sure that that is corrected specially with her underlying respiratory disease back in resulting worsening shortness of breath. The patient did have a CT scan of the chest that we personally reviewed. It is reassuring that the left upper lobe nodular density that she had that was concerning has resolved. A lot of the inflammatory changes she had also have improved. She does have some interstitial changes though and she does have some pleural based disease and some stable pulmonary nodules. In part could be secondary to her fall and injury but otherwise reassuring. On these for now we do not have to have serial CT scans. We can discuss additional CT scans during her next visit in 6 months. 11/18/2023 the patient is here for a pulmonary follow-up visit. The patient continues to lose weight. recently she did follow-up with Hematology and she was diagnosed with MGUS. She is currently being evaluated further. In addition to that she was found to have a cystic lesion on her pancreas. She is going to end the go a endoscopy before that. This is going to be a [facility]. She has had significant weight loss proximally 20 lb in the last few months. She does not have much appetite. Respiratory status she does continue to do well. She has been using her inhalers. She does get short of breath with activity. Gcfx-nb-xzvcpagh severity. Although she has been significantly deconditioned and also anemic that is also affecting her dyspnea itself. We did review her last CT scan of the chest that was back in May 2023. The patient had multiple pulmonary nodules. She is concerned with weight loss. due to her critical situation will go ahead and repeat her CT scan in 3 months time. Will have her follow-up after that. She will continue using her respiratory therapy as prescribed. If the patient has any worsening symptoms prior to the next visit she will call for an earlier assessment. 03/25/2024 the patient is here for a pulmonary follow-up visit. The patient has had issues with weight loss still. She has decreased appetite. She was admitted briefly to [facility] after being found dehydrated. She was evaluated and discharged. She continues on respiratory therapy. The patient did have a CT scan of the chest which we personally reviewed together. Has not been officially read although she appears to have a new 1.5 cm pulmonary nodule in the periphery of the left lung. She has other pulmonary nodules bilaterally. At this point with her significant weight loss decreased appetite and this abnormal findings concerning for malignancy will go ahead and order a PET scan. 05/20/2024 the patient is here for pulmonary follow-up visit. The patient still complains of her weight loss issues. Also having shortness of breath with activity mild in severity. She did undergo a PET scan because of the abnormal findings on the CT scan. The FDG activity of the pulmonary nodules appear to be minimal. Likely more inflammatory or infectious process. Still that she did have increased FDG activity around the throat area and the question of malignancy did come up I have a concern. Therefore is recommended that she undergo laryngoscopy from ENT. I will refer her urgently to ENT at this time to follow-up with the abnormalities. She also had FDG activity of the esophagus. Likely consistent with esophagitis. She does take a PPI the patient does not have any symptoms at this time. If her symptoms were to worsen then additional medication or GI evaluation will be warranted. For now will continue with respiratory therapy. Will follow-up in 6 months after her repeat CT scan. 07/08/2024 the patient is here for a Sick visit. She has been complaining of worsening cough chest congestion and wheezing. She has been sick now for about a week. Gawy-eiw-hkwgvnf medications are not effective for her. Her cough is significant does not let her sleep. Moderate severity. She did follow-up with ENT. No significant findings based on the abnormal PET scan in that larynx. This is all reassuring. She will continue to get imaging studies to follow-up pulmonary nodules. But in the meantime will go ahead and treated for a COPD exacerbation as she does have significant chest congestion and wheezing. The patient does not like to take prednisone for will give her a lower dose at this time. If she does not feel like her symptoms are getting any better she may need a higher dose and she can always call for that. 11/24/2024 the patient is here for pulmonary follow-up visit. Overall the patient is feeling better. She has actually gained weight. Breathing is at baseline. She did have a repeat CT scan of the chest which was reassuring with the nodular density subsided. Although she has new pulmonary nodules that are up to 5 mm in size. Will follow-up with a CT scan in a year's time for these new nodules. The patient continues respiratory therapy with good effect. She is not taking a prednisone at this time which is reassuring. Overall the patient is doing well so therefore follow-up in 6 months and will reassess her symptoms. Hopefully we can hold off on a CT scan to a year from her last 1. She has not issues before next visit she can always call for an earlier assessment. 05/29/2025 the patient is here for pulmonary follow-up visit. Overall she is doing well. Breathing is spent well. She continues her respiratory medications with good effect. Denies any really limitations. She recently got back from [place] she did well there too. We did review her CT scan of the chest demonstrating stable nodules the last visit. Will go ahead and plan to repeat a CAT scan early next year to follow-up with the pulmonary nodules. In the meantime though her blood pressure was elevated on arrival. Was 170 systolic. This is on the left arm. I did recheck the right arm was the same and then I then rechecked the blood pressure later and it decreased to systolic in the 150s. This is higher than her usual. I will have her office call her primary care doctor for a nursing blood pressure check. She also has a cough at home and she will bring it along to be able to make sure that it is an adequate cuff. The patient follow-up in 6 months if she has any issues prior to that she can always call for further recommendations. [facility] Medical History Abnormal PET scan of head Anemia Aortic stenosis Tobacco dependence Lymphadenopathy Pulmonary nodules COPD (chronic obstructive pulmonary disease) Surgical History S/P cardiac catheterization Status post transcatheter aortic valve replacement History of partial gastrectomy H/O total knee replacement Family History Other Adopted Social History (Updated 05/29/25 @ 11:00 by Selena Perez CMA) Alcohol intake: former Year quit: 1979 Patient Tobacco Use Status: Current everyday Tobacco user Tobacco use type: Cigarette Cigarettes Per Day: 8 Years Smoked: 10 +/- Review of Systems Const Reports fatigue, Denies night sweats and Reports weight gain Eyes Reports change in vision ENT Denies change in voice, Reports dizziness, Denies lip swelling, Denies mouth pain, Reports nasal congestion, Reports nasal discharge and Denies tongue swelling Card Denies chest pain and Reports dyspnea on exertion Resp Reports cough, Denies hemoptysis, Denies pain with cough, Reports dyspnea on exertion and Reports wheezing GI Denies abdominal pain Musc Reports as per HPI and Reports myalgias Neuro Denies Neuro-related abnormal movements and Reports dizziness Psych Denies no additional complaints Endo Reports fatigue Luis Alberto/Lymph Denies easy bleeding and Denies lymphadenopathy Aller/Immun Denies lip swelling, Denies tongue swelling and Reports wheezing Physical Exam Vital Signs: Last Vital Signs Pulse 74 05/29/25 10:55 BP 178/78 H 05/29/25 10:55 Pulse Ox 95 05/29/25 10:55 Oxygen Delivery Method Room Air 05/29/25 10:55 BMI result Body Mass Index 20.0 Const General: alert Neck Neck: Yes normal visual inspection, Yes full ROM and Yes no lymphadenopathy Chest Chest palpation & inspection: normal inspection of the chest Resp Effort & Inspection: normal respiratory effort and prolonged expiratory phase Auscultation: rhonchi, wheezes and diminished lung sounds Cardio Rate: regular rate Rhythm: regular rhythm Heart sounds: S1 normal heart sound present, S2 normal heart sound present and Murmur heart sound present GI Palpation (GI): Soft to palpation and nontender Auscultation: normal bowel sounds Skin General skin exam: rashes and/or lesions noted Assessment & Plan Assessment & Plan (1) Pulmonary nodules: Code(s): R91.8 - Other nonspecific abnormal finding of lung field Category: Medical (2) COPD (chronic obstructive pulmonary disease): Code(s): J44.9 - Chronic obstructive pulmonary disease, unspecified Category: Medical Qualifiers: COPD type: COPD with acute exacerbation Qualified Code(s): J44.1 - Chronic obstructive pulmonary disease with (acute) exacerbation (3) Anemia: Comment: 10.4->9.0->9.3 (08/28) Code(s): D64.9 - Anemia, unspecified Category: Medical Qualifiers: Anemia type: iron deficiency Iron deficiency anemia type: unspecified iron deficiency Qualified Code(s): D50.9 - Iron deficiency anemia, unspecified (4) Dyspnea: Code(s): R06.00 - Dyspnea, unspecified Category: Medical Qualifiers: Dyspnea type: dyspnea on exertion Qualified Code(s): R06.09 - Other forms of dyspnea Plan CPT with acapella valve Mucinex Continue Advair and Spiriva ANASTASIYA as needed benzonates as needed CT chest 11/2025 F/U 6 months Coding Level of Care Code Est Pt Level 4 (95567) Complex EM visit Add On G2211 Diagnoses Pulmonary nodules R91.8 Chronic obstructive pulmonary disease with acute exacerbation J44.1 COPD type: COPD with acute exacerbation Iron deficiency anemia, unspecified iron deficiency anemia type D50.9 Anemia type: iron deficiency Iron deficiency anemia type: unspecified iron deficiency Dyspnea on exertion R06.09 Dyspnea type: dyspnea on exertion Time Spent (min) 17
--- OUTSIDE RECORDS SUMMARY | 2025-05-29 13:31 | XMS_ITS | Clinical Summary ---
Author Organization [facility], Address [address] [place] [address] [place] [address] Phone Care Team Providers Care Plastic Duplicator Name Role Phone Davon Hoyos MD Primary Care Provider [phone] Allergies Active Allergy Reactions Criticality Noted Date [...] kidney disease, stage 2 (mild) 4 Immunizations Immunization Administration Dates Next Due Influenza, Unspecified 06/27/2022,2020,06/04/2020,06/13/2019, [...] Due Date Last Done Comments Pneumococcal Vaccine: 50+ Years (1 of 2 - PCV) 1964 Influenza Vaccine (#1) 2025 2, 06/28/2021, 06/04/2020, Additional history exists Hepatitis B Vaccine Aged Out No longe r eligible based on patient's age to complete this topic Insurance Medicare [place] [id number] Care Teams Plastic Duplicator Relationship Specialty Start Date End Date Davon Hoyos MD [address] PCP - General Internal Medicine 02/09/23
--- OUTSIDE RECORDS SUMMARY | 2025-05-29 13:31 | XMS_ITS | Encounter Summary ---
Author Organization [facility], Address [address] [place] [address] Phone Care Team Providers Care Gas Meter Reader Name Role Phone Davon Hoyos MD Primary Care Provider [phone] Encounter Details Date Type Department Care Team (Late st Contact Info) Description 11/13/2023 Documentation Only [facility], [address] [place] [address] Taryn Mclain [address] [place] [id number] Social History Tobacco Use Types Packs/Day [...] on filedocumented in this encounter Care Teams Gas Meter Reader Relationship Specialty Start Date End Date Davon Hoyos MD [address] PCP - General Internal Medicine 02/09/23 documented as of this encounter
--- OUTSIDE RECORDS SUMMARY | 2025-05-29 13:31 | XMS_ITS | Patient Health Record ---
Author Organization [facility] Address [address] [facility] [address] [place] [address] Care Team Providers Care Health Services Administrator Name Role Phone Davon Hoyos Primary Care Provider PAZ Moctezuma Unavailable [phone] Allergies Allergen (clinical drug ingredient) Drug/Non Drug Allergy documented on EMR Reaction Allergy Type Onset Date Status Levaquin muscle aches Drug Allergy Acti ve tramadol Ultram rash Drug Allergy Active codeine Codeine rash Drug Allergy Active Reason For Referral No Information Medications Medication SIG (Take, Route, Frequency, Duration) Notes Start Date End Date Status dilTIAZem HCl ER 180 MG 1 tablet [...] tablet Orally Twic e a day Not-Taking Spiriva Respimat 2.5 MCG/ACT 2 puffs Inhalation Once a day Active SEROquel 25 MG 1 tablet at bedtime Orally Once a day Not-Taking Advair Diskus 100-50 MCG/ACT 1 puff Inhalation Twice a day Active Vitamin D3 25 MCG (1000 UT) 1 tablet Orally Once a day Not-Taking Lipitor 20 MG 1 tablet Orally Once a day Active Omeprazole 20 MG 1 capsule 30 minutes before morning meal Orally Once a day Active Gabapentin 400 MG 1 tablet Orally Once a day Active Problems Problem Type SNOMED Code ICD Code Onset Dates Problem Status W/U Status Risk Notes Problem Pernicious anemia (72563274) Vitamin B12 deficiency anemia due to intrinsic factor deficiency (D51.0) Active confirmed Problem Acquired hammer toe of right foot (1602898993401622 ) Other hammer toe(s) (acquired), right foot (M20.41) Active confirmed Problem Localized, primary osteoarthritis of the ankle and/or foot (655018762) 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) Active confirmed Vital Signs Heart Rate 84 /min 05/01/2025 Temperature 97.3 degrees Fahrenheit 05/01/2025 Respiratory Rate 12 /min 05/01/2025 Height 5ft 1.5in in 05/01/2025 Weight 102.9 lbs 05/01/2025 BMI 19.13 kg/m2 05/01/2025 Procedures Procedure Date Ordered Date Performed Result Body Sit e trim skin lesion 2-4 02/02/2025 N/A Trim skin lesion 04/03/2025 N/A Encounters Encounter Location Date Provider Diagnosis [facility] [address] [address] 01/02/2025 PAZ TEGAN Deformity of toe of right foot M20.61 ; Pain of toe of right foot M79.674 and Foot callus L84 [facility] [address] 06/09/2024 PAZ TEGAN Deformity of toe of right foot M20.61 ; Pain of toe of right foot M79.674 and Foot callus L84 [facility] [address] [address] 07/28/2024 PAZ TEGAN Deformity of toe of right foot M20.61 ; Pain of toe of right foot M79.674 and Foot callus L84 [facility] [address] [address] 08/26/2024 PAZ TEGAN Deformity of toe of right foot M20.61 ; Pain of toe of right foot M79.674 and Foot callus L84 [facility] [address] [address] 09/30/2024 PAZ TEGAN Deformity of toe of right foot M20.61 ; Pain of toe of right foot M79.674 ; Foot callus L84 and Vitamin B12 deficiency anemia due to intrinsic factor deficiency D51.0 [facility] [address] 11/03/2024 PAZ TEGAN Deformity of toe of right foot M20.61 ; Pain of toe of right foot M79.674 ; Foot callus L84 and Vitamin B12 deficiency anemia due to intrinsic factor deficiency D51.0 [facility] [address] 12/02/2024 PAZ TEGAN Deformity of toe of right foot M20.61 ; Pain of toe of right foot M79.674 ; Foot callus L84 and Vitamin B12 deficiency anemia due to intrinsic factor deficiency D51.0 [facility] [address] 02/02/2025 PAZ TEGAN Deformity of toe of right foot M20.61 ; Pain of toe of right foot M79.674 and Foot callus L84 [facility] [address] 04/03/2025 PAZ TEGAN Deformity of toe of right foot M20.61 ; Pain of toe of right foot M79.674 and Foot callus L84 [facility] [address] 05/01/2025 PAZ TEGAN Deformity of toe of right foot M20.61 ; 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 06/09/2024 Pain of toe of right foot [...] of right foot (ICD-10 - M79.674) 11/03/2024 Deformity of toe of right foot [...] toe of right foot (ICD-10 - M79.674) 12/02/2024 Deformity of toe of right foot (ICD-10 [...] will follow back with me as needed. 12/02/2024 Pain of toe of right foot (ICD-10 - M79.674) 01/02/2025 Deformity of toe of right foot [...] toe of right foot (ICD-10 - M79.674) 02/02/2025 Deformity of toe of right foot (ICD-10 - M20.61) Patient examined and evaluated. Past history reviewed. She has recurrent callus formation to the right 5th toe and new callus to the tip of the right 2nd toe. She has deformity present and the flexor tenotomy was minimally effective on the right 5th toe. . She would require a bigger bony surgery [...] will follow back with me as needed. 04/03/2025 Pain of toe of right foot (ICD-10 - M79.674) 05/01/2025 Deformity of toe of right foot (ICD-10 - M20.61) Patient examined and evaluated. Past history reviewed. She has recurrent callus formation to the right 5th toe. She has deformity present and the flexor tenotomy was minimally effective on the right 5th toe. .She would require a bigger bony surgery to correct this or amputation. She does not want to pursue any other surgical intervention at this time. I discussed padding and gel sleeves for protection. She has found the sleeves to be more painful for her. I did discuss the use of silicon scar tape. This is a bit thinner and could protect the area. I do not think she has tried this yet. I have discussed the importance of wider toe box shoe gear as well. She has some recurrent callus formation also to the tip of the 2nd toe. I debrided all callus tissue today to the right 2nd and 5th toes. She tolerated this well. Silicon tape applied to the 5th toe for padding. She tolerated this well. I will see her back in 1 month or sooner if needed. 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 Past history reviewed. She has recurrent callus formation to the right 5th toe. She has deformity present and the flexor tenotomy was minimally effective on the right 5th toe. . She would require a bigger bony surgery [...] prominences. I debrided the callus tissue to the right 5th toe using a sterile 15 blade down to the healthy epithelial tissue. She tolerated this well. I applied gel taping. She will follow back with me as needed. 04/03/2025 Foot callus (ICD-10 - L84) 05/01/2025 Pain of toe of right foot (ICD-10 - M79.674) 02/02/2025 Foot callus (ICD-10 - L84) 01/02/2025 Foot callus (ICD-10 - L84) 12/02/2024 Foot callus (ICD-10 - L84) 11/03/2024 Foot callus (ICD-10 - L84) 09/30/2024 Foot callus (ICD-10 - L84) 08/26/2024 Foot callus (ICD-10 - L84) 07/28/2024 Foot callus (ICD-10 - L84) 06/09/2024 Foot callus (ICD-10 - L84) 09/30/2024 Vitamin B12 deficiency anemia due to intrinsic factor deficiency (ICD-10 - D51.0) 11/03/2024 Vitamin B12 deficiency anemia due to intrinsic factor deficiency (ICD-10 - D51.0) 12/02/2024 Vitamin B12 deficiency anemia due to intrinsic factor deficiency (ICD-10 - D51.0) Plan Of Treatment Pending Test Test Name Order Date X ray : Foot, right 3v 02/04/2024 Trim skin lesion 02/04/2024 Trim skin lesion 04/03/2025 trim skin lesion 2-4 02/02/2025 Next Appt Details Provider Name:PAZ TEGAN, 06/05/2025 10:00:00 AM, [address] [facility], [place] [address], [place], [address], Provider Name:PAZ TEGAN, 07/03/2025 10:00:00 AM, [address] [facility], [place] [address], [place], [address], Provider Name:PAZ TEGAN, 07/31/2025 10:00:00 AM, [address] [facility], [place] [address], [place], [address], Provider Name:PAZ TEGAN, 08/28/2025 10:00:00 AM, [address] [facility], [place] [address], [place], [address], Insurance Providers Payer Name Payer Address Payer Phone Subscriber Number Group Number Insured Name Patient Relationship to Insured Coverage Start Date Coverage End Date Medicare of [place] [address] [place] [phone] [id number] Kiki Walton Self - patient is the insured [address] Services and Insurance [address] [address] [phone] [id number] Kiki Blue Self - patient is the [...] rinsic factor deficiency COVID vaccinated X 3 (Sweepery) Elevated alkaline phosphatase level Surgical History Surgery [...] [facility] [place] [facility] 10/07/2011- 2
--- OUTSIDE RECORDS SUMMARY | 2025-05-29 13:31 | XMS_ITS | Encounter Summary ---
Author Organization [facility], Address [address] [place] [address] Phone Care Team Providers Care Aviation Ordnance Officer Name Role Phone Davon Hoyos MD Primary Care Provider [phone] Encounter Details Date Type Department Care Team (Late st Contact Info) Description 11/13/2023 Documentation Only [facility], [address] [place] [address] Taryn Mclain [address] [place] [phone] Social History Tobacco Use Types Packs/Day [...] on filedocumented in this encounter Care Teams Aviation Ordnance Officer Relationship Specialty Start Date End Date Davon Hoyos MD [address] PCP - General Internal Medicine 02/09/23 documented as of this encounter
--- OUTSIDE RECORDS SUMMARY | 2025-05-29 13:31 | XMS_ITS | Encounter Summary ---
Author Organization [facility], Address [address] [place] [address] Phone Care Team Providers Care Before School Babysitter Name Role Phone Davon Hoyos MD Primary Care Provider [phone] Encounter Details Date Type Department Care Team (Late st Contact Info) Description 11/13/2023 Documentation Only [facility], [address] [place] [address] Taryn Mclain [address] [place] [phone] Social History Tobacco Use Types Packs/Day [...] on filedocumented in this encounter Care Teams Before School Babysitter Relationship Specialty Start Date End Date Davon Hoyos MD [address] PCP - General Internal Medicine 02/09/23 documented as of this encounter
--- OUTSIDE RECORDS SUMMARY | 2025-05-29 13:31 | XMS_ITS | Encounter Summary ---
Author Organization [facility], Address [address] [place] [address] Phone Care Team Providers Care Table Games Shift Manager Name Role Phone Davon Hoyos MD Primary Care Provider [phone] Encounter Details Date Type Department Care Team (Late st Contact Info) Description 11/13/2023 Documentation Only [facility], [address] [place] [address] Taryn Mclain [address] [place] [phone] Social History Tobacco Use Types Packs/Day [...] on filedocumented in this encounter Care Teams Table Games Shift Manager Relationship Specialty Start Date End Date Davon Hoyos MD [address] PCP - General Internal Medicine 02/09/23 documented as of this encounter
--- OUTSIDE RECORDS SUMMARY | 2025-05-29 13:31 | XMS_ITS | Encounter Summary ---
Author Organization [facility], Address [address] [place] [address] Phone Care Team Providers Care Anesthesia Tech Name Role Phone Davon Hoyos MD Primary Care Provider [phone] Encounter Details Date Type Department Care Team (Late st Contact Info) Description 11/13/2023 Documentation Only [facility], [address] [place] [address] Taryn Mclain [address] [place] [phone] Social History Tobacco Use Types Packs/Day [...] on filedocumented in this encounter Care Teams Anesthesia Tech Relationship Specialty Start Date End Date Davon Hoyos MD [address] PCP - General Internal Medicine 02/09/23 documented as of this encounter
== END 2025-05-29 11:26 | disposition home or self-care (01) ==
PROVIDERS: PCP Internal Medicine; Visit Provider Hospitalist
DX: R91.8 Other nonspecific abnormal finding of lung field (principal); J44.1 Chronic obstructive pulmonary disease with (acute) exacerbation; D50.9 Iron deficiency anemia, unspecified; R06.09 Other forms of dyspnea
CPT/HCPCS: 99214; G2211

== ENCOUNTER → 2025-05-29 10:53 | Outpatient (BNVA) | payer MEDICARE, OTHER, SELFPAY | PROVIDERS: PCP Internal Medicine; Visit Provider Hospitalist | DX: J44.1 Chronic obstructive pulmonary disease with (acute) exacerbation (principal); R91.8 Other nonspecific abnormal finding of lung field; D50.9 Iron deficiency anemia, unspecified; R06.09 Other forms of dyspnea | CPT/HCPCS: 99212 ==

== ENCOUNTER → 2025-07-11 13:50 | Outpatient (REF) | payer MEDICARE, OTHER, SELFPAY ==
--- OUTSIDE RECORDS SUMMARY | 2025-01-02 06:15 | XMS_ITS ---
Author Organization [facility] Address [address] [facility] [address] [place] [address] Care Team Providers Care Steamer Gum Candy Name Role Phone Davon Hoyos Primary Care Provider PAZ Moctezuma Unavailable [phone] Allergies Allergen (clinical drug ingredient) Drug/Non Drug [...] 01/02/2025 Encounters Encounter Location Date Provider Diagnosis [facility] [address] [facility] [address] [place] [address] 01/02/2025 PAZ JAVED Deformity of toe of [...] needed. Next Appt Details Provider Name:PAZ JAVED, 08/01/2025 01:00:00 PM, [address] [facility], [place] [address], [place], [address], Provider Name:PAZ JAVED, 08/28/2025 10:00:00 AM, [address] [facility], [place] [address], [place], [address], Progress Notes * Hilary KHANOB:1945 (79 yo F)Acc No.[id number]:01/02/2025 Progress Note Patient: Kiki CONTRERAS Provider: Ct Carranza DPM :1945 A ge:79 Y S ex:Female Date:01/02/2025 Address:[address] [place], [place] [phone] Pcp:Davon Hoyos Subjective: * Chief Complaints: * [...] intrinsic factor deficiency, COVID vaccinated X 3 ([employer]), Elevated alkaline phosphatase level. * Surgical History: [...] * Procedure Codes: * Electronic signature of WILBERT JAVED D.P.M. on 07/11/2025 at 04:56 PM EST Sign off status: Pending * Provider: Ct Carranza DPEduardo Date: 0 01/02/2025 Generated for Laurita winn/Miles/Sujatha on: 1 09/10/2024 04:56 PM EST
--- OUTSIDE RECORDS SUMMARY | 2025-03-16 04:45 | XMS_ITS ---
Author Organization [facility] Address [address] [place] [address] Care Team Providers Care Spool Winder Name Role Phone Davon Hoyos Primary Care Provider PAZ Moctezuma Unavailable [phone] REASON FOR VISIT right 5th toe callus fu Encounters Encounter Location Date Provider Diagnosis [facility] [address] [address] 03/16/2025 PAZ JAVED Plan Of Treatment Next Appt Details Provider Name:PAZ JAVED, 08/01/2025 01:00:00 PM, [facility] [address] [place] [address], [place], [address], Provider Name:PAZ JAVED, 08/28/2025 10:00:00 AM, [address] [place] [address], [address], Progress Notes * ERIN BarbaracarmeloeDOB:1945 (79 yo F)Acc No.[id number]:03/16/2025 Progress Note Patient: Kiki CONTRERAS Provider: Ct Carranza DPEduardo :1945 A ge:79 Y S ex:Female Date:03/16/2025 Address:[address] [place] [address] Pcp:Davon Hoyos Subjective: * Chief Complaints: * 1 . Right 5th toe callus fu. * Medical History: Objective: * Vitals: Assessment: Plan: * Treatment: * Billing Information: * Visit Code: * Procedure Codes: * Electronic signature of IWLBERT JAVED D.P.M. on 07/11/2025 at 04:56 PM EST Sign off status: Pending * Provider: Ct Carranza DPM Date: 0 03/16/2025 Generated for Laurita winn/Miles/Sujatha on: 1 09/10/2024 04:56 PM EST
--- NOTE | 2025-07-11 14:01 | CA_ITS ---
Transthoracic Echocardiogram Patient (Last, First, Middle): Kiki Walton E Gender: F Date of : 1945 Age: 79 Procedure Date: 07/11/2025 Procedure Type: Transthoracic Echocardiogram Location: OP Height: 154.94 cm Weight: 47.63 kg BSA: 1.44 m2 Heart Rate: bpm BP: 116 / 60 mmHg First Beater: Referring MD: Johnnie Jacobson MD Symptoms: Z95.2 - Presence of prosthetic heart valve Study Quality: Fair ECG Rhythm: Sinus Conclusions: - The left ventricular systolic function is normal. The calculated ejection fraction is 66% by biplane method. - The basal inferior segment is akinetic. - A bioprosthetic aortic valve is present. The prosthetic aortic valve appears to be functioning normally. Findings Left Ventricle Normal left ventricular cavity size. There is normal left ventricular wall thickness. The left ventricular systolic function is normal. The calculated ejection fraction is 66% by biplane method. There is no evidence of regional wall motion abnormalities. Evidence suggests grade I (mild) diastolic dysfunction. Wall Motion Rest Echo Findings The basal inferior segment is akinetic. Right Ventricle Normal right ventricular cavity size and systolic function. Atria The left atrium is moderately dilated. The right atrium is normal in size. Aortic Valve A bioprosthetic aortic valve is present. The prosthetic aortic valve appears to be functioning normally. The mean gradient is 10 mmHg. There is no aortic valve regurgitation. Mitral Valve There is mild mitral annular calcification. There is mild mitral valve regurgitation. There is no mitral valve stenosis. Pulmonic Valve The pulmonic valve is likely normal. Tricuspid Valve There is mild tricuspid valve regurgitation. There is no evidence of pulmonary hypertension. Great Vessels The aorta was not well visualized. The sinuses of valsalva is normal in size. Venous The inferior vena cava is normal in size and collapses greater than 50% with inspiration. Pericardium/Pleural There is no evidence of pericardial effusion. Prior Study Comparison No significant change compared to prior study dated: 07/05/2024. Measurements 2D Linear Measurements IVSd: 0.68 0.6-0.9/0.6-1.0 cm LVIDd: 4.20 3.9-5.3/4.2-5.9 cm LVIDd Index: 2.92 2.4-3.2/2.2-3.1 cm/m2 LVIDs: 2.83 2.0-3.6 cm LVPWd: 0.79 0.7-1.1 cm Ao Root: 2.40 2.1-3.5 cm LA Diam: 3.00 2.7-3.8/3.0-4.0 cm LAIDs Index: 2.08 1.5-2.3 cm/m2 LV Mass: 112.62 67-162/88-224 g LV Mass Index: 78.21 43-95/49-115 g/m2 LVOT Diam: 2.00 3.0+(-)1.3 cm 2D Systolic Function EF 4C: 58.30 >55% EF 2C: 72.30 >55% EF BiP: 65.70 >55% Mitral Valve MV VTI: 0.41 MV Pk Davis: 1.33 MV Mn Davis: 0.78 MV Pk Grad: 7.00 MV Mn Grad: 3.00 MV Pk E: 1.03 MV PK A: 1.29 MV Decel Time: 224.00 E/A: 0.80 E'Lateral: 6.20 E'Medial: 5.55 E/E' Med: 18.60 E/E' Lat: 16.60 PHT: 66.00 MVA PHT: 3.33 MVA Continuity: 1.66 Decel Garland: 4.61 Aortic Valve AoV Pk Davis: 2.07 AoV Mn Davis: 1.52 AoV VTI: 0.49 AoV Pk Grad: 17.00 Aov Mn Grad: 10.00 CHRISTEN Cont.VTI: 1.38 LVOT LVOT Pk Davis: 0.88 LVOT Mn Davis: 0.57 LVOT VTI: 0.22 LVOT Pk Grad: 3.00 LVOT Mn Grad: 2.00 LVOT Diam: 2.00 LVOT Area: 3.14 Diastolic Function MV Pk E: 1.03 MV Pk A: 1.29 E/A: 0.80 E'Medial: 5.55 E/E' Med: 18.60 E' Laterial: 6.20 E/E' Lat: 16.60 Right Ventricle TAPSE (mm): 29.00 TVS' Davis: 13.00 Tricuspid Valve TR Pk Davis: 2.74 TR Pk Grad: 30.00 RA Press: 3.00 RVSP: 33.00 Great Vessels Aorta Ao Root-2D: 2.40 2.0-3.7 cm Pulmonary Valve PV Pk Davis: 1.02 Peak PV Grad: 4.00 Updated in Other Vendor System with Status of Final Dusty Xiong MD electronically signed on 07/12/2025 1:05:15 PM with status of Final
--- OUTSIDE RECORDS SUMMARY | 2025-07-11 16:56 | XMS_ITS | Patient Health Record ---
Author Organization [facility] Address [address] [facility] [address] [place] [address] Care Team Providers Care Plant Operator Control Room Operator Name Role Phone Davon Hoyos Primary Care Provider PAZ Moctezuma Unavailable [phone] Allergies Allergen (clinical drug ingredient) Drug/Non Drug Allergy documented on EMR Reaction Allergy Type Onset Date Status Levaquin muscle aches Drug Allergy Acti ve tramadol Ultram rash Drug Allergy Active codeine Codeine rash Drug Allergy Active Reason For Referral No Information Medications Medication SIG (Take, Route, Frequency, Duration) Notes Start Date End Date Status Spiriva Respimat 2.5 MCG/ACT 2 puffs Inhalation Once a day Active Ventolin HFA 108 (90 Base) MCG/ACT 1 puff as needed Inhalation every 4 hrs Active Eliquis 5 MG 1 tablet Orally Twic e a day Not-Taking Valsartan-hydroCHLOROthia zide 80-12.5 MG 1 tablet Orally Once a day Active PreserVision AREDS 2 - as directed Orally Active dilTIAZem HCl ER 180 MG 1 tablet Orally Once a day Active Venlafaxine HCl ER 150 MG 1 capsule with food Orally Once a day Active Omeprazole 20 [...] 1 tablet Orally Once a day Active SEROquel 25 MG 1 tablet at bedtime Orally Once a day Not-Taking Problems Problem Type SNOMED Code ICD Code Onset Dates Problem Status W/U Status Risk Notes Problem Pernicious anemia (46026547) Vitamin B12 deficiency anemia due to intrinsic factor deficiency (D51.0) Active confirmed Problem Acquired hammer toe of right foot (5424798187339842 ) Other hammer toe(s) (acquired), right foot (M20.41) Active confirmed Problem Localized, primary osteoarthritis of the ankle and/or foot (779727313) 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674 and Foot callus L84 [facility] [address] 07/28/2024 PAZ TEGAN Deformity of toe of right foot M20.61 ; Pain of toe of right foot M79.674 and Foot callus L84 [facility] [address] 08/26/2024 PAZ TEGAN Deformity of toe of right foot M20.61 ; Pain of toe of right foot M79.674 and Foot callus L84 [facility] [address] 09/30/2024 PAZ TEGAN Deformity of toe of right foot M20.61 ; Pain of toe of right foot M79.674 ; Foot callus L84 and Vitamin B12 deficiency anemia due to intrinsic factor deficiency D51.0 [facility] [address] 11/03/2024 PAZ TEGAN Deformity of toe of right foot M20.61 ; Pain of toe of right foot M79.674 ; Foot callus L84 and Vitamin B12 deficiency anemia due to intrinsic factor deficiency D51.0 [facility] [address] 12/02/2024 PAZ TEGAN Deformity of toe of right foot M20.61 ; Pain of toe of right foot M79.674 ; Foot callus L84 and Vitamin B12 deficiency anemia due to intrinsic factor deficiency D51.0 [facility] [address] 02/02/2025 PAZ TEGAN Deformity of toe of right foot M20.61 ; Pain of toe of right foot M79.674 and Foot callus L84 [facility] [address] 04/03/2025 PAZ TEGAN Deformity of toe of right foot M20.61 ; Pain of toe of right foot M79.674 and Foot callus L84 [facility] [address] 05/01/2025 PAZ TEGAN Deformity of toe of right foot M20.61 ; 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 and Pain of toe of right foot M79.674 [facility] [address] 06/05/2025 PAZ TEGAN Deformity of toe of right foot M20.61 ; 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 and Pain of toe of right foot M79.674 [facility] [address] 07/03/2025 PAZ TEGAN Deformity of toe of right foot M20.61 ; 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 06/05/2025 Deformity of toe of right foot (ICD-10 [...] bit thinner and could protect the area. She has callus build up to the tip of the right 2nd toe. Both calluses were debrided with a sterile 15 blade down to healthier epithelial tissue. I again discussed shoe gear changes and padding as needed. She can follow up as needed with me. 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) 07/03/2025 Pain of toe of right foot (ICD-10 - M79.674) 06/05/2025 Pain of toe of right foot (ICD-10 - M79.674) 04/03/2025 Foot callus (ICD-10 - L84) 05/01/2025 Pain of toe of right foot (ICD-10 - M79.674) 02/02/2025 Foot callus (ICD-10 - L84) 01/02/2025 Foot callus (ICD-10 - L84) 12/02/2024 Foot callus (ICD-10 - L84) 11/03/2024 Foot callus (ICD-10 - L84) 09/30/2024 Foot callus (ICD-10 - L84) 08/26/2024 Foot callus (ICD-10 - L84) 07/28/2024 Foot callus (ICD-10 - L84) 09/30/2024 Vitamin B12 deficiency anemia due to intrinsic factor deficiency (ICD-10 - D51.0) 11/03/2024 Vitamin B12 deficiency anemia due to intrinsic factor deficiency (ICD-10 - D51.0) 12/02/2024 Vitamin B12 deficiency anemia due to intrinsic factor deficiency (ICD-10 - D51.0) 07/03/2025 Anemia due to vitamin B12 deficiency, unspecified B12 deficiency type (ICD-10 - D51.9) 07/03/2025 Callus of toe (ICD-10 - L84) Plan Of Treatment Pending Test Test Name Order Date X ray : Foot, right 3v 02/04/2024 Trim skin lesion 04/03/2025 Trim skin lesion 02/04/2024 trim skin lesion 2-4 07/03/2025 trim skin lesion 2-4 02/02/2025 Next Appt Details Provider Name:PAZ JAVED, 08/01/2025 01:00:00 PM, [address], [address], Provider Name:PAZ JAVED, 08/28/2025 10:00:00 AM, [address] [address], [place], [address], Insurance Providers Payer Name Payer Address Payer Phone Subscriber Number Group Number Insured Name Patient Relationship to Insured Coverage Start Date Coverage End Date Medicare of [place] [address] [place] [id number] Kiki Walton Self - patient is the insured [address] Services and Insurance [address] [address] [phone] [id number] Kiki Blue Self - patient is the [...] rinsic factor deficiency COVID vaccinated X 3 (Kili) Elevated alkaline phosphatase level Surgical History Surgery [...]
--- OUTSIDE RECORDS SUMMARY | 2025-07-11 16:56 | XMS_ITS | Encounter Summary ---
Author Organization [facility], Address [address] [place] [address] Phone Care Team Providers Care Movers Name Role Phone Davon Hoyos MD Primary Care Provider [phone] Encounter Details Date Type Department Care Team (Late st Contact Info) Description 11/13/2023 Documentation Only [facility], [address] [place] [address] Taryn Mclain [address] [place] [phone] Social History Tobacco Use Types Packs/Day [...] on filedocumented in this encounter Care Teams Movers Relationship Specialty Start Date End Date Davon Hoyos MD [address] PCP - General Internal Medicine 02/09/23 documented as of this encounter
--- OUTSIDE RECORDS SUMMARY | 2025-07-11 16:56 | XMS_ITS | Encounter Summary ---
Author Organization [facility], Address [address] [place] [address] Phone Care Team Providers Care Landscape Foreman Name Role Phone Davon Hoyos MD Primary Care Provider [phone] Encounter Details Date Type Department Care Team (Late st Contact Info) Description 11/13/2023 Documentation Only [facility], [address] [place] [address] Taryn Mclain [address] [place] [phone] Social History Tobacco Use Types Packs/Day [...] on filedocumented in this encounter Care Teams Landscape Foreman Relationship Specialty Start Date End Date Davon Hoyos MD [address] PCP - General Internal Medicine 02/09/23 documented as of this encounter
--- OUTSIDE RECORDS SUMMARY | 2025-07-11 16:56 | XMS_ITS | Encounter Summary ---
Author Organization [facility], Address [address] [place] [address] Phone Care Team Providers Care Transportation Associate Name Role Phone Davon Hoyos MD Primary Care Provider [phone] Encounter Details Date Type Department Care Team (Late st Contact Info) Description 11/13/2023 Documentation Only [facility], [address] [place] [address] Taryn Mclain [address] [place] [phone] Social History Tobacco Use Types Packs/Day [...] on filedocumented in this encounter Care Teams Transportation Associate Relationship Specialty Start Date End Date Davon Hoyos MD [address] PCP - General Internal Medicine 02/09/23 documented as of this encounter
--- OUTSIDE RECORDS SUMMARY | 2025-07-11 16:56 | XMS_ITS | Clinical Summary ---
Author Organization [facility], Address [address] [place] [address] [place] [address] Phone Care Team Providers Care Civil Engineering Director Name Role Phone Davon Hoyos MD Primary Care Provider [phone] Allergies Active Allergy Reactions Criticality Noted Date [...] age to complete this topic Insurance Medicare [place] [id number] Member Subscriber Plan / Payer (Ef fective 2009-Present) Name:Kiki Khan Member ID:[id number] Relation to Subscriber:Spouse Name:JENNIFER KHAN Subscriber ID:[id number] Date of :1944 (Home) Address: [address] [place] [id number] Payer ID:Not on file Group ID:Not on file Type:Not on file Address: [address] [place] [id number] Care Teams Civil Engineering Director Relationship Specialty Start Date End Date Davon Hoyos MD [address] PCP - General Internal Medicine 02/09/23
--- OUTSIDE RECORDS SUMMARY | 2025-07-11 16:56 | XMS_ITS | Encounter Summary ---
Author Organization [facility], Address [address] [place] [address] Phone Care Team Providers Care Radio Television Technical Director Name Role Phone Davon Hoyos MD Primary Care Provider [phone] Encounter Details Date Type Department Care Team (Late st Contact Info) Description 11/13/2023 Documentation Only [facility], [address] [place] [address] Taryn Mclain [address] [place] [phone] Social History Tobacco Use Types Packs/Day [...] on filedocumented in this encounter Care Teams Radio Television Technical Director Relationship Specialty Start Date End Date Davon Hoyos MD [address] PCP - General Internal Medicine 02/09/23 documented as of this encounter
--- OUTSIDE RECORDS SUMMARY | 2025-07-11 16:56 | XMS_ITS | Encounter Summary ---
Author Organization [facility], Address [address] [place] [address] Phone Care Team Providers Care Life Sciences Director Name Role Phone Davon Hoyos MD Primary Care Provider [phone] Encounter Details Date Type Department Care Team (Late st Contact Info) Description 11/13/2023 Documentation Only [facility], [address] [place] [address] Taryn Mclain [address] [place] [phone] Social History Tobacco Use Types Packs/Day [...] on filedocumented in this encounter Care Teams Life Sciences Director Relationship Specialty Start Date End Date Davon Hoyos MD [address] PCP - General Internal Medicine 02/09/23 documented as of this encounter
== END ==
LOC: HO.CARD 13:50
PROVIDERS: PCP Internal Medicine; Visit Provider Internal Medicine Cardiovascular Disease
DX: Z95.2 Presence of prosthetic heart valve (principal)
CPT/HCPCS: 93306

== ENCOUNTER → 2025-07-11 14:01 | Outpatient (BNV) | payer MEDICARE, OTHER, SELFPAY | PROVIDERS: PCP Internal Medicine; Visit Provider Internal Medicine | DX: I51.89 Other ill-defined heart diseases (principal); Z95.3 Presence of xenogenic heart valve; I34.81 Nonrheumatic mitral (valve) annulus calcification | CPT/HCPCS: 93306 ==

== ENCOUNTER 2025-07-27 10:32 | Outpatient (AMB) | payer MEDICARE, OTHER, SELFPAY ==
--- OUTSIDE RECORDS SUMMARY | 2025-01-02 06:15 | XMS_ITS ---
Author Organization [facility] Address [address] [facility] [address] [place] [address] Care Team Providers Care Certified Rehabilitation Counselor Name Role Phone Davon Hoyos Primary Care Provider PAZ Moctezuma Unavailable [phone] Allergies Allergen (clinical drug ingredient) Drug/Non Drug Allergy documented on EMR Reaction Allergy Type Onset Date Status Levaquin muscle aches Drug Allergy Acti ve tramadol Ultram rash Drug Allergy Active codeine Codeine rash Drug Allergy Active REASON FOR VISIT 1 month f/u Medications Medication SIG (Take, Route, Frequency, Duration) Notes Start Date End Date Status SEROquel 25 MG 1 tablet at bedtime Orally Once a day Not-Taking Vitamin D3 25 MCG (1000 UT) 1 tablet Orally Once a day Not-Taking Ventolin HFA 108 (90 Base) MCG/ACT 1 puff as needed Inhalation every 4 hrs Active Eliquis 5 MG 1 tablet Orally Twic e a day Not-Taking PreserVision AREDS 2 - as directed Orally Active Omeprazole 20 MG 1 capsule 30 minutes before morning meal Orally Once a day Active Venlafaxine HCl ER 150 MG 1 capsule with food Orally Once a day Active Gabapentin 400 MG 1 tablet Orally Once a day Active dilTIAZem HCl ER 180 MG 1 tablet Orally Once a day Active Valsartan-hydroCHLOROthia zide 80-12.5 MG 1 tablet Orally Once a day Active Lipitor 20 MG 1 tablet Orally Once a day Active Spiriva Respimat 2.5 MCG/ACT 2 puffs Inhalation Once a day Active Advair Diskus 100-50 MCG/ACT 1 puff Inhalation Twice a day Active Vital Signs Height 5ft 1.5in in 01/02/2025 Weight 111.0 lbs 01/02/2025 BMI 20.63 kg/m2 01/02/2025 Encounters Encounter Location Date Provider Diagnosis [facility] [address] [facility] [address] [place] [address] 01/02/2025 PAZ JAVED Deformity of toe of right foot M20.61 ; Pain of toe of right foot M79.674 and Foot callus L84 Assessments Encounter Date Diagnosis (ICD Code) Assessment Notes Treatment Notes Treatment Clinical Notes Section Notes 01/02/2025 Deformity of toe of right foot (ICD-10 [...] discussed padding and gel sleeves for protection. She has found the sleeves to be more painful for her. I did discuss the use of silicon scar tape. This is a bit thinner and could protect the area. I also discussed using wider shoe gear and avoiding any shoes that rub on the toe prominences. I debrided the callus tissue to each toe using a sterile 15 blade down to the healthy epithelial tissue. She tolerated this well. I applied gel taping. She will follow back with me as needed. 01/02/2025 Pain of toe of right foot (ICD-10 - M79.674) 01/02/2025 Foot callus (ICD-10 - L84) Plan Of [...] discussed padding and gel sleeves for protection. She has found the sleeves to be more painful for her. I did discuss the use of silicon scar tape. This is a bit thinner and could protect the area. I also discussed using wider shoe gear and avoiding any shoes that rub on the toe prominences. I debrided the callus tissue to each toe using a sterile 15 blade down to the healthy epithelial tissue. She tolerated this well. I applied gel taping. She will follow back with me as needed. Next Appt Details Provider Name:PAZ JAVED, 08/28/2025 10:00:00 AM, [address] [facility], [facility] [address], [place], [address], Progress Notes * Hilary KHANOB:1945 (79 yo F)Acc No.[id number]:01/02/2025 Progress Note Patient: Kiki CONTRERAS Provider: Ct Carranza DPM :1945 A ge:79 Y S ex:Female Date:01/02/2025 Address:[address] [place], [place] [phone] Pcp:Davon Hoyos Subjective: * Chief Complaints: * 1 . 1 month f/u. 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 * Surgical History: l eft TKA 09/2010, right achilles repair , partial gastrectomy for PUD , right total knee replacement 10/07/2011, [facility]: TAVR 07/10/2022, left total knee replacement , tonsillectomy . * Hospitalization/Major Diagno stic Procedure: r ight TKA at [facility] 10/07/2011-10/11/2011, [facility] ED- fall 07/30/2019, [facility]- s[facility]p procedural bleed- on plavix 07/13/2022, [facility]- fall, radius fracture, right 4-7 rib fracture 02/01/2023, [facility]- fluid retention 02/22/2023, vaginal delivery (girl) 1967, vaginal delivery (girl) 1968, vaginal delivery (boy) 1969. * Family History: S on(s): open heart surgery, heart disease. 1 son(s) , 2 daughter(s) . . patient was adopted has no medical back ground. * Social History: T obacco: yes, 2 cigarettes a day Alcohol: no Lives with . * Medications: T aking Spiriva Respimat 2.5 MCG/ACT Aerosol Solution 2 puffs Inhalation Once a day , Taking Advair Diskus 100-50 MCG/ACT Aerosol Powder Breath Activated 1 puff Inhalation Twice a day , Taking Lipitor 20 MG Tablet 1 tablet Orally Once a day , Taking Omeprazole 20 MG Capsule Delayed Release 1 capsule 30 minutes before morning meal Orally Once a day , Taking Gabapentin 400 MG Capsule 1 tablet Orally Once a day , Taking dilTIAZem HCl ER 180 MG Tablet Extended Release 24 Hour 1 tablet Orally Once a day , Taking Venlafaxine HCl ER 150 MG Capsule Extended Release 24 Hour 1 capsule with food Orally Once a day , Taking Valsartan-hydroCHLOROthiazide 80-12.5 MG Tablet 1 tablet Orally Once a day , Taking PreserVision AREDS 2 - Capsule as directed Orally , Taking Ventolin HFA 108 (90 Base) MCG/ACT Aerosol Solution 1 puff as needed Inhalation every 4 hrs , Not-Taking Eliquis 5 MG Tablet 1 tablet Orally Twice a day , Not-Taking SEROquel 25 MG Tablet 1 tablet at bedtime Orally Once a day , Not- Taking Vitamin D3 25 MCG (1000 UT) Tablet Chewable 1 tablet Orally Once a day , Medication List reviewed and reconciled with the patient * Allergies: C odeine: rash, Ultram: rash, Levaquin: muscle aches. Objective: * Vitals: W t: 111.0 lbs, Ht: 5ft 1.5in, BMI: 20.63 Index, Ht-cm: 156.21, Wt-k.35 kg. Assessment: * Assessment: 1. D eformity of toe of right foot - M20.61 (Primary) 2 . P ain of toe of right foot - M79.674 3 . F oot callus - L84 Plan: * Treatment: * Billing Information: * Visit Code: * Procedure Codes: * Electronic signature of Shawn PALACIOSPLeon on 07/27/2025 at 03:32 PM EST Sign off status: Pending * Provider: Ct Carranza DPM Date: 0 01/02/2025 Generated for Laurita winn/Miles/Sujatha on: 1 09/26/2024 03:32 PM EST
--- OUTSIDE RECORDS SUMMARY | 2025-03-16 04:45 | XMS_ITS ---
Author Organization [facility] Address [address] [address] Care Team Providers Care Animal Care Assistant Name Role Phone Davon Hoyos Primary Care Provider PAZ Moctezuma Unavailable [phone] REASON FOR VISIT right 5th toe callus fu Encounters Encounter Location Date Provider Diagnosis [facility] [address] [address] 03/16/2025 PAZ JAVED Plan Of Treatment Next Appt Details Provider Name:PAZ JAVED, 08/28/2025 10:00:00 AM, [address] [place] [address], [place], [address], Progress Notes * Taya KHANGiselOB:1945 (79 yo F)Acc No.[id number]:03/16/2025 Progress Note Patient: Kiki CONTRERAS Provider: Ct Carranza DPM :1945 A ge:79 Y S ex:Female Date:03/16/2025 Address:[address] [place], [place] [phone] Pcp:Davon Hoyos Subjective: * Chief Complaints: * 1 . Right 5th toe callus fu. * Medical History: Objective: * Vitals: Assessment: Plan: * Treatment: * Billing Information: * Visit Code: * Procedure Codes: * Electronic signature of WILBERT JAVED D.P.M. on 07/27/2025 at 03:32 PM EST Sign off status: Pending * Provider: Ct Carranza DPM Date: 0 03/16/2025 Generated for Laurita winn/Miles/Sujatha on: 1 09/26/2024 03:32 PM EST
--- NOTE | 2025-07-27 10:46 | A.OFFVIS_ITS ---
Vital Signs 07/27/25 10:47 Height 5 ft 1 in Weight 112 lb 6.972 oz BMI 21.2 BP 120/72 Blood Pressure Location Lt brachial Position Sitting Pulse 80 Intake Visit Reasons: 1 yr s/p echo Intake Note: 1 year follow-up with ekg after echo Solid Waste Truck Driver Required: No Allergies codeine Allergy (Severe, Verified 05/29/25 10:58) Headache levofloxacin (From Levaquin) Allergy (Severe, Verified 05/29/25 10:58) Headache tramadol (From Ultram) Allergy (Severe, Verified 05/29/25 10:58) Rash Medication List - Last Reconciled 07/27/25 by Johnnie Jacobson MD aspirin (Adult Low Dose Aspirin) 81 mg PO DAILY atorvastatin 20 mg PO DAILY benzonatate 200 mg PO BID PRN 90 days diltiazem HCl ER 180 mg PO fluticasone propion-salmeterol 100-50 mcg/dose 1 inh inhalation BID gabapentin mg PO ipratropium-albuterol 0.5 mg-3 mg(2.5 mg base)/3 mL 3 mL inhalation BID 30 days pantoprazole 20 mg PO DAILY tiotropium bromide 2.5 mcg/actuation (Spiriva Respimat) 2 inhalations inhalation DAILY valsartan 40 mg PO DAILY venlafaxine ER 150 mg PO DAILY vit C,Z-Qv-thpsp-lutein-zeaxan 250-90-40-1 mg (PreserVision AREDS-2) 1 tab PO BID HPI Comments Details: Kiki comes for follow-up. Overall she has been doing well from cardiac perspective. Patient denies any significant cardiac symptoms at current point time. She has not been measuring her blood pressure usually. Recent echocardiogram shows normally functioning bioprosthetic aortic valve with preserved LV ejection fraction. She takes her current medications. Her blood pressure today is well optimized. [facility] Medical History Abnormal PET scan of head Anemia Aortic stenosis Tobacco dependence Lymphadenopathy Pulmonary nodules COPD (chronic obstructive pulmonary disease) Surgical History S/P cardiac catheterization Status post transcatheter aortic valve replacement History of partial gastrectomy H/O total knee replacement Family History Other Adopted Social History Alcohol intake: former Year quit: 1979 Patient Tobacco Use Status: Current everyday Tobacco user Tobacco use type: Cigarette Cigarettes Per Day: 8 Years Smoked: 10 +/- Review of Systems Const Denies chills, Denies fatigue, Denies fever(s), Denies frequent falls, Denies weakness, Denies weight gain and Denies weight loss ENT Denies dizziness Card Denies chest pain, Denies leg edema, Denies lightheadedness, Denies palpitations, Denies dyspnea, Denies dyspnea on exertion, Denies orthopnea and Denies other (loss of consciousness) Resp Denies cough, Denies dyspnea and Denies dyspnea on exertion GI Denies hematochezia and Denies change in stool character Musc Denies abnormal gait, Denies muscle weakness, Denies numbness, Denies radiating pain into limb and Denies tingling Neuro Denies abnormal gait, Denies dizziness, Denies frequent falls, Denies numbness, Denies tingling and Denies weakness Endo Denies fatigue and Denies palpitations Physical Exam Vital Signs: Last Vital Signs Pulse 80 07/27/25 10:47 BP 120/72 07/27/25 10:47 BMI result Body Mass Index 21.2 Const General: cooperative, healthy appearing and comfortable Nutritional Appearance: other (Frail elderly woman) Limitations: wheelchair Neck Neck: Yes normal visual inspection and Yes no JVD Resp Effort & Inspection: normal respiratory effort Auscultation: clear to auscultation bilaterally, no crackles, no rales, no rhonchi, no wheezes and diminished lung sounds Cardio Jugular venous distension: no JVD Rate: regular rate Rhythm: regular rhythm Heart sounds: S1 normal heart sound present, S2 normal heart sound present, no click, no gallops and Murmur heart sound present systolic early Peripheral pulses: Peripheral pulses 2+ throughout Skin General skin exam: no rashes or lesions noted and ecchymosis Extrem Other: Right radial catheterization site with easily palpable radial pulse, right hand assessment normal General: Yes normal to inspection and No no pedal edema Psych Appearance: grossly normal Mental Status: mental status grossly normal Speech and movement: Normal speech and movement present Office Procedures EKG Details: EKG shows normal sinus rhythm with PACs with nonspecific ST-T changes 87732-[id number], Complete Assessment & Plan Assessment & Plan (1) Status post transcatheter aortic valve replacement: Comment: 26 mm Evolut bioprosthetic aortic valve replacement, July 2022 Code(s): Z95.2 - Presence of prosthetic heart valve Category: Surgical Plan: Status post transcatheter aortic valve replacement which is working well both clinically and by echocardiogram. Continue aggressive risk factor modification. Low-dose aspirin therapy for life. Recommend to continue aggressive blood pressure control. Encouraged to monitor blood pressure at home. See below. Continue statin therapy with target goal LDL less than 100 mg/dL. Advise SBE prophylaxis as per ACC/aha guidelines. (2) Labile blood pressure: Code(s): R09.89 - Other specified symptoms and signs involving the circulatory and respiratory systems Category: Medical Plan: Labile blood pressure which has been difficult control in the past. On today's exam the blood pressure appears well controlled on current Cardizem as well as valsartan therapy. Advised to stagger her medications. Advise adequate hydration. Orthostatic precautions were discussed. Most importantly advise her to pursue blood pressure monitoring at home to assess for overall response. Will follow up in the clinic in 1 year's time, sooner PRN. Thank you for allowing me to partake in her care Coding Level of Care Code Est Pt Level 4 (93256) Complex EM visit Add On G2211 Diagnoses Status post transcatheter aortic valve replacement Z95.2 Labile blood pressure R09.89 CPT Codes EKG - CPT: 17349-Ubxgebcgatswvqomr, Complete ([id number])
[2025-07-27 10:47] VITALS: BP 120/72; PULSE 80; BMI 21.2
--- OUTSIDE RECORDS SUMMARY | 2025-07-27 15:31 | XMS_ITS | Patient Health Record ---
Author Organization [facility] Address [address] [facility] [address] [place] [address] Care Team Providers Care Senior Data Developer Name Role Phone Davon Hoyos Primary Care Provider PAZ Moctezuma Unavailable [phone] Allergies Allergen (clinical drug ingredient) Drug/Non Drug [...] W/U Status Risk Notes Problem Pernicious anemia (05118004) Vitamin B12 deficiency anemia due to intrinsic factor deficiency (D51.0) Active confirmed Problem Acquired hammer toe of right foot (0892486194554119 ) Other hammer toe(s) (acquired), right foot (M20.41) Active confirmed Problem Localized, primary osteoarthritis of the ankle and/or foot (487787085) Osteoarthritis of joint of toe of right [...] N/A Encounters Encounter Location Date Provider Diagnosis [facility] [address] 01/02/2025 PAZ TEGAN Deformity of toe of right foot M20.61 ; Pain of toe of right foot M79.674 and Foot callus L84 [facility] [address] 07/28/2024 PAZ TEGAN Deformity of toe of right foot M20.61 ; Pain of toe of right foot M79.674 and Foot callus L84 [facility] [address] 08/26/2024 PAZ TEGAN Deformity of toe of right foot M20.61 ; Pain of toe of right foot M79.674 and Foot callus L84 [facility] [address] 09/30/2024 PAZ TEGAN Deformity of toe of right foot M20.61 ; Pain of toe of right foot M79.674 ; Foot callus L84 and Vitamin B12 deficiency anemia due to intrinsic factor deficiency D51.0 [facility] [address] 11/03/2024 PAZ TEGAN Deformity of toe of right foot M20.61 ; Pain of toe of right foot M79.674 ; Foot callus L84 and Vitamin B12 deficiency anemia due to intrinsic factor deficiency D51.0 [facility] [address] 12/02/2024 PAZ TEGAN Deformity of toe of right foot M20.61 ; Pain of toe of right foot M79.674 ; Foot callus L84 and Vitamin B12 deficiency anemia due to intrinsic factor deficiency D51.0 [facility] [address] 02/02/2025 PAZ TEGAN Deformity of toe of right foot M20.61 ; Pain of toe of right foot M79.674 and Foot callus L84 [facility] [address] 04/03/2025 PAZ TEGAN Deformity of toe of right foot M20.61 ; Pain of toe of right foot M79.674 and Foot callus L84 [facility] [address] 05/01/2025 PAZ TEGAN Deformity of toe of right foot M20.61 ; 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 and Pain of toe of right foot M79.674 [facility] [address] 06/05/2025 PAZ TEAGN Deformity of toe of right foot M20.61 ; 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 and Pain of toe of right foot M79.674 [facility] [address] 07/03/2025 PAZ TEGAN Deformity of toe of right foot M20.61 ; 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 ; Pain of toe of right foot M79.674 ; Anemia due to vitamin B12 deficiency, unspecified B12 deficiency type D51.9 and Callus of toe L84 [facility] [address] 17/2025 PAZ JAVED [facility] [address] [facility] [address] [place] [address] 07/03/2025 PAZ JAVED Assessments Encounter Date Diagnosis [...] 02/02/2025 Next Appt Details Provider Name:PAZ TEGAN, 08/28/2025 10:00:00 AM, [address] [facility] [address], [place], [address], Insurance Providers Payer Name Payer Address Payer Phone Subscriber Number Group Number Insured Name Patient Relationship to Insured Coverage Start Date Coverage End Date Medicare of [place] [address] MALLIKA SIMPSON [id number] Kiki Walton Self - patient is the insured [address] Services and Insurance [address] [id number] [id number] [id number] Kiki Blue Self - patient is the [...] rinsic factor deficiency COVID vaccinated X 3 (Audioscribe) Elevated alkaline phosphatase level Surgical History Surgery [...]
--- OUTSIDE RECORDS SUMMARY | 2025-07-27 15:31 | XMS_ITS | Clinical Summary ---
Author Organization [facility], Address [address] [place] [address] [place] [address] Phone Care Team Providers Care Social Media Designer Name Role Phone Davon Hoyos MD Primary Care Provider [phone] Allergies Active Allergy Reactions Criticality Noted Date [...] age to complete this topic Insurance Medicare [place] [id number] Care Teams Social Media Designer Relationship Specialty Start Date End Date Davon Hoyos MD [address] PCP - General Internal Medicine 02/09/23
--- OUTSIDE RECORDS SUMMARY | 2025-07-27 15:31 | XMS_ITS | Encounter Summary ---
Author Organization [facility], Address [address] [place] [address] Phone Care Team Providers Care Drawing Machine Operator Name Role Phone Davon Hoyos MD Primary Care Provider [phone] Encounter Details Date Type Department Care Team (Late st Contact Info) Description 11/13/2023 Documentation Only [facility], [address] [place] [address] Taryn Mclain [address] [place] [phone] Social History Tobacco Use Types Packs/Day [...] on filedocumented in this encounter Care Teams Drawing Machine Operator Relationship Specialty Start Date End Date Davon Hoyos MD [address] PCP - General Internal Medicine 02/09/23 documented as of this encounter
--- OUTSIDE RECORDS SUMMARY | 2025-07-27 15:31 | XMS_ITS | Encounter Summary ---
Author Organization [facility], Address [address] [place] [address] Phone Care Team Providers Care Data Integration Analyst Name Role Phone Davon Hoyos MD Primary Care Provider [phone] Encounter Details Date Type Department Care Team (Late st Contact Info) Description 11/13/2023 Documentation Only [facility], [address] [place] [address] Taryn Mclain [address] [place] [phone] Social History Tobacco Use Types Packs/Day [...] on filedocumented in this encounter Care Teams Data Integration Analyst Relationship Specialty Start Date End Date Davon Hoyos MD [address] PCP - General Internal Medicine 02/09/23 documented as of this encounter
--- OUTSIDE RECORDS SUMMARY | 2025-07-27 15:31 | XMS_ITS | Encounter Summary ---
Author Organization [facility] [place], Address [address] [place] [address] Phone Care Team Providers Care Associate Dentist Name Role Phone Davon Hoyos MD Primary Care Provider [phone] Encounter Details Date Type Department Care Team (Late st Contact Info) Description 11/13/2023 Documentation Only [facility], [address] [place] [address] Taryn Mclain [address] [place] [phone] Social History Tobacco Use Types Packs/Day [...] on filedocumented in this encounter Care Teams Associate Dentist Relationship Specialty Start Date End Date Davon Hoyos MD [address] PCP - General Internal Medicine 02/09/23 documented as of this encounter
--- OUTSIDE RECORDS SUMMARY | 2025-07-27 15:32 | XMS_ITS | Encounter Summary ---
Author Organization [facility], Address [address] [place] [address] Phone Care Team Providers Care Employee Development Specialist Name Role Phone Davon Hoyos MD Primary Care Provider [phone] Encounter Details Date Type Department Care Team (Late st Contact Info) Description 11/13/2023 Documentation Only [facility], [address] [place] [address] Taryn Mclain [address] [place] [phone] Social History Tobacco Use Types Packs/Day [...] on filedocumented in this encounter Care Teams Employee Development Specialist Relationship Specialty Start Date End Date Davon Hoyos MD [address] PCP - General Internal Medicine 02/09/23 documented as of this encounter
--- OUTSIDE RECORDS SUMMARY | 2025-07-27 15:32 | XMS_ITS | Encounter Summary ---
Author Organization [facility], Address [address] [place] [address] Phone Care Team Providers Care Dobby Looms Pegger Name Role Phone Davon Hoyos MD Primary Care Provider [phone] Encounter Details Date Type Department Care Team (Late st Contact Info) Description 11/13/2023 Documentation Only [facility], [address] [place] [address] Taryn cMlain [address] [place] [phone] Social History Tobacco Use Types Packs/Day [...] on filedocumented in this encounter Care Teams Dobby Looms Pegger Relationship Specialty Start Date End Date Davon Hoyos MD [address] PCP - General Internal Medicine 02/09/23 documented as of this encounter
== END 2025-07-27 11:18 | disposition home or self-care (01) ==
LOC: HO.HCS 10:33
PROVIDERS: PCP Internal Medicine; Visit Provider Internal Medicine Cardiovascular Disease
DX: Z95.2 Presence of prosthetic heart valve (principal); R09.89 Other specified symptoms and signs involving the circulatory and respiratory systems
CPT/HCPCS: 93010; 99214; G2211

== ENCOUNTER → 2025-07-27 10:32 | Outpatient (BNVA) | payer MEDICARE, OTHER, SELFPAY | PROVIDERS: PCP Internal Medicine; Visit Provider Internal Medicine Cardiovascular Disease | DX: R09.89 Other specified symptoms and signs involving the circulatory and respiratory systems (principal); I49.1 Atrial premature depolarization; Z95.2 Presence of prosthetic heart valve | CPT/HCPCS: 93005; 99212 ==